=== PATIENT | female | born 1945 | race Caucasian/White ===

== ENCOUNTER → 2018-04-30 08:29 | Outpatient (CLI) | payer MEDICARE, OTHER, SELFPAY ==
[2018-04-30 10:29] LABS: Free T4, Direct Thyroxine 1.28 ng/dL (0.78-2.19)
[2018-04-30 10:43] LABS: Thyroid Stimulating Hormone 2.67 uIU/mL (0.47-4.68)
== END ==
PROVIDERS: PCP Internal Medicine; Visit Provider Internal Medicine
DX: E03.9 Hypothyroidism, unspecified (principal)
CPT/HCPCS: 36415; 84439; 84443

== ENCOUNTER → 2018-09-17 09:08 | Outpatient (CLI) | payer MEDICARE, OTHER, SELFPAY ==
[2018-09-17 10:12] LABS: Alanine Aminotransferase 36 IU/L (9-52); Aspartate Aminotransferase 33 IU/L (14-36); Cholesterol 177 mg/dL (140-199); HDL Cholesterol 83 mg/dL (40-60); LDL Cholesterol Calculated 80 mg/dL (<100); Triglycerides 71 mg/dL (35-150)
[2018-09-17 10:51] LABS: Free T3, Triiodothyronine Free 3.66 pg/mL (2.77-5.27)
[2018-09-17 11:05] LABS: Thyroid Stimulating Hormone 2.27 uIU/mL (0.47-4.68)
== END ==
PROVIDERS: PCP Internal Medicine; Visit Provider Internal Medicine
DX: E03.9 Hypothyroidism, unspecified (principal); E78.00 Pure hypercholesterolemia, unspecified
CPT/HCPCS: 36415; 80061; 84439; 84443; 84450; 84460; 84481

== ENCOUNTER → 2018-11-25 08:39 | Outpatient (CLI) | payer MEDICARE, OTHER, SELFPAY ==
[2018-11-25 10:50] LABS: Free T4, Direct Thyroxine 1.12 ng/dL (0.78-2.19)
[2018-11-25 11:03] LABS: Thyroid Stimulating Hormone 4.03 uIU/mL (0.47-4.68)
[2018-11-25 11:06] LABS: Cortisol AM (Before 10AM) 8.48 ug/dL (4.46-22.7)
== END ==
PROVIDERS: PCP Internal Medicine; Visit Provider Internal Medicine Endocrinology, Diabetes & Metabolism
DX: E03.9 Hypothyroidism, unspecified (principal)
CPT/HCPCS: 36415; 82533; 84439; 84443

== ENCOUNTER → 2018-12-30 10:55 | Outpatient (CLI) | payer MEDICARE, OTHER, SELFPAY ==
--- NOTE | 2018-12-30 | DI.MG.S_ITS ---
BILATERAL DIGITAL SCREENING MAMMOGRAM 3D/2D WITH CAD: 12/30/2018 CLINICAL: Routine screening. Comparison is made to exams dated: 11/08/2017 mammogram, 10/11/2016 mammogram, and 09/14/2015 mammogram - [facility]. The tissue of both breasts is heterogeneously dense. This may lower the sensitivity of mammography. Current study was also evaluated with a Computer Aided Detection (CAD) system. There are heterogeneous calcifications in the left breast at 12 o'clock middle depth which appear more prominent and increased in number over the past few mammograms. This may in part be due to slight differences in imaging technique. No other significant masses, calcifications, or other findings are seen in either breast. IMPRESSION: INCOMPLETE: NEEDS ADDITIONAL IMAGING EVALUATION The heterogeneous calcifications in the left breast are indeterminate. Mediolateral and spot magnification views are recommended. This exam was interpreted at Station ID: [id number]. NOTE: For mammograms, a report in lay terms will be sent to the patient. Approximately 15% of breast malignancies will not be visualized mammographically. In the management of a palpable breast mass, a negative mammogram must not discourage biopsy of a clinically suspicious lesion. Electronically Signed By: David Thompson M.D. aty/:12/30/2018 12:42:31 letter sent: Additional Imaging Needed ACR BI-RADS Category 0: Incomplete 3340F
== END ==
PROVIDERS: PCP Internal Medicine; Visit Provider Internal Medicine
DX: Z12.31 Encounter for screening mammogram for malignant neoplasm of breast (principal)
CPT/HCPCS: 77063; 77067

== ENCOUNTER → 2019-01-21 12:43 | Outpatient (CLI) | payer MEDICARE, OTHER, SELFPAY ==
--- NOTE | 2019-01-21 | DI.MG.S_ITS ---
UNILATERAL LEFT DIGITAL DIAGNOSTIC MAMMOGRAM 3D/2D WITH ADDITIONAL VIEWS: 01/21/2019 CLINICAL: Additional evaluation requested from prior study. Comparison is made to exams dated: 12/30/2018 mammogram, 11/08/2017 mammogram, and 10/11/2016 mammogram - [facility]. The tissue of left breast is heterogeneously dense. This may lower the sensitivity of mammography. There are a grouped fine punctate calcifications in the left breast at 12 o'clock middle depth. These are not significantly changed compared to the prior studies given differences in technique. No other significant masses or calcifications are seen in the breast. IMPRESSION: PROBABLY BENIGN The grouped fine punctate calcifications in the left breast are probably benign. A follow-up in 6 months is recommended. A follow-up mammogram in 6 months is recommended to demonstrate stability. This exam was interpreted at Station ID: [id number]. NOTE: For mammograms, a report in lay terms will be sent to the patient. Approximately 15% of breast malignancies will not be visualized mammographically. In the management of a palpable breast mass, a negative mammogram must not discourage biopsy of a clinically suspicious lesion. Electronically Signed By: Michi zavala/:01/21/2019 13:27:20 letter sent: Followup Recommended ACR BI-RADS Category 3: Probably benign 3343F
== END ==
PROVIDERS: PCP Internal Medicine; Visit Provider Internal Medicine
DX: R92.1 Mammographic calcification found on diagnostic imaging of breast (principal)
CPT/HCPCS: 77065; G0279

== ENCOUNTER → 2019-03-31 11:11 | Outpatient (CLI) | payer MEDICARE, OTHER, SELFPAY ==
[2019-03-31 13:38] LABS: TSH w/ Reflex to FT4 5.34 uIU/mL (0.47-4.68)
[2019-03-31 14:15] LABS: Free T4, Direct Thyroxine 1.13 ng/dL (0.78-2.19)
== END ==
PROVIDERS: PCP Internal Medicine; Visit Provider Internal Medicine
DX: E03.9 Hypothyroidism, unspecified (principal)
CPT/HCPCS: 36415; 84439; 84443

== ENCOUNTER → 2019-06-30 10:53 | Outpatient (CLI) | payer MEDICARE, OTHER, SELFPAY ==
[2019-06-30 12:40] LABS: Free T4, Direct Thyroxine 1.05 ng/dL (0.78-2.19)
[2019-06-30 12:54] LABS: Thyroid Stimulating Hormone 3.57 uIU/mL (0.47-4.68)
== END ==
PROVIDERS: PCP Internal Medicine; Visit Provider Internal Medicine
DX: E03.9 Hypothyroidism, unspecified (principal)
CPT/HCPCS: 36415; 84439; 84443

== ENCOUNTER → 2019-09-03 13:03 | Outpatient (CLI) | payer MEDICARE, OTHER, SELFPAY ==
--- NOTE | 2019-09-03 | DI.MG.S_ITS ---
UNILATERAL LEFT DIGITAL DIAGNOSTIC MAMMOGRAM 3D/2D: 09/03/2019 CLINICAL: Patient returns for a 6 month follow up of the left breast. Comparison is made to exams dated: 01/21/2019 mammogram, 12/30/2018 mammogram, and 11/08/2017 mammogram - [facility]. The tissue of left breast is heterogeneously dense. This may lower the sensitivity of mammography. There are grouped fine punctate calcifications in the left breast at 12 o'clock middle depth. These are not significantly changed. No other significant masses or calcifications are seen in the breast. IMPRESSION: PROBABLY BENIGN The grouped fine punctate calcifications in the left breast remain stable and are probably benign. A follow-up bilateral mammogram in 6 months is recommended to demonstrate stability. This exam was interpreted at Station ID: [id number]. NOTE: For mammograms, a report in lay terms will be sent to the patient. Approximately 15% of breast malignancies will not be visualized mammographically. In the management of a palpable breast mass, a negative mammogram must not discourage biopsy of a clinically suspicious lesion. Electronically Signed By: David Thompson M.D. at/:09/03/2019 13:47:26 letter sent: Followup Recommended ACR BI-RADS Category 3: Probably benign 3343F
== END ==
PROVIDERS: PCP Internal Medicine; Visit Provider Internal Medicine
DX: R92.8 Other abnormal and inconclusive findings on diagnostic imaging of breast (principal); R92.1 Mammographic calcification found on diagnostic imaging of breast
CPT/HCPCS: 77065; G0279

== ENCOUNTER → 2020-05-14 09:13 | Outpatient (CLI) | payer MEDICARE, OTHER, SELFPAY ==
--- NOTE | 2020-05-14 | DI.US.S_ITS ---
ULTRASOUND OF RIGHT BREAST: 05/14/2020 CLINICAL: Right breast pain. Comparison is made to exams dated: 05/14/2020 mammogram, 12/30/2018 mammogram, 11/08/2017 mammogram, 10/11/2016 mammogram, and 09/14/2015 mammogram - [facility]. Color flow ultrasound of the right breast was performed on the areas of interest. Phillips scale images of the real-time examination were reviewed. There is a 1 cm x 0.7 cm x 0.8 cm irregular mass in the right breast at 9 o'clock middle depth. This irregular mass is hypoechoic. This correlates as palpated and with mammography findings. IMPRESSION: HIGHLY SUGGESTIVE OF MALIGNANCY The 1 cm x 0.7 cm x 0.8 cm irregular mass in the right breast is highly suggestive of malignancy. An ultrasound guided biopsy is recommended. Please note, a stereotactic biopsy of the linear calcifications in the left breast is also recommended. This exam was interpreted at Station ID: [id number]. SUMMARY: This was discussed with the patient by the radiologist Dr. Monsivais at the time of the exam. Electronically Signed By: Kay hancock/:05/18/2020 13:21:42 letter sent: Biopsy Required Ultrasound BI-RADS: 5 Highly suggestive of malignancy
--- NOTE | 2020-05-14 | DI.MG.S_ITS ---
BILATERAL DIGITAL DIAGNOSTIC MAMMOGRAM 3D/2D SHORT-TERM FOLLOW-UP: 05/14/2020 CLINICAL: Patient returns for a 12 month follow up of the left breast, due for bilateral imaging. Right breast pain. Comparison is made to exams dated: 09/03/2019 mammogram, 01/21/2019 mammogram, 12/30/2018 mammogram, and 11/08/2017 mammogram - [facility]. The tissue of both breasts is heterogeneously dense. This may lower the sensitivity of mammography. There is a mass with a spiculated margin in the right breast at 11 o'clock posterior depth. This correlates as palpated. There are linear calcifications in the left breast at 12 o'clock middle depth. No other significant masses or calcifications are seen in either breast. IMPRESSION: INCOMPLETE: NEEDS ADDITIONAL IMAGING EVALUATION The mass in the right breast at 11 o'clock posterior depth is indeterminate. A targeted ultrasound of the right breast is recommended and will be performed immediately following this exam. The linear calcifications in the left breast at 12 o'clock middle depth are at a low suspicion for malignancy. A stereotactic biopsy is recommended. This exam was interpreted at Station ID: [id number]. NOTE: For mammograms, a report in lay terms will be sent to the patient. Approximately 15% of breast malignancies will not be visualized mammographically. In the management of a palpable breast mass, a negative mammogram must not discourage biopsy of a clinically suspicious lesion. Electronically Signed By: Kay Sultana M.D. lk/:05/18/2020 13:21:20 ACR BI-RADS Category 0: Incomplete 3340F
== END ==
PROVIDERS: PCP Internal Medicine; Referring Provider Internal Medicine; Visit Provider Internal Medicine
DX: R92.8 Other abnormal and inconclusive findings on diagnostic imaging of breast (principal); R92.1 Mammographic calcification found on diagnostic imaging of breast; N63.15 Unspecified lump in the right breast, overlapping quadrants; N64.4 Mastodynia
CPT/HCPCS: 76642; 77066; G0279

== ENCOUNTER → 2020-06-08 09:47 | Outpatient (CLI) | payer MEDICARE, OTHER, SELFPAY ==
[2020-06-08 12:13] LABS: Alanine Aminotransferase 25 IU/L (<35); Albumin 4.4 g/dL (3.5-5.0); Albumin Globulin Ratio 1.5 (1.0-2.8); Alkaline Phosphatase 95 U/L (38-126); Aspartate Aminotransferase 32 IU/L (14-36); BUN Creatinine Ratio 13.3 (6-22); Bilirubin Total 0.5 mg/dL (0.2-1.3); Blood Urea Nitrogen 12 mg/dL (7-17); Calcium 9.7 mg/dL (8.4-10.2); Carbon Dioxide 30 mmol/L (22-32); Chloride 105 mmol/L (98-107); Cholesterol 179 mg/dL (140-199); Estimated Glomerular Filt Rate > 60.0 mL/min (>60); Glucose 104 mg/dL (80-110); HDL Cholesterol 83 mg/dL (40-60); HEMOLYSIS < 15 (0-50); LDL Cholesterol Calculated 81 mg/dL (<100); Potassium 4.6 mmol/L (3.4-5.1); Sodium 142 mmol/L (137-145); Total Protein 7.4 g/dL (6.3-8.2); Triglycerides 75 mg/dL (35-150)
--- NOTE | 2020-06-08 14:54 | ONC.MSW ---
Description: New Referral Navigation T/C Reason for Referral: New Breast Cancer Dx Activity: Spoke with pt's spouse re: referral and scheduling. Pt was recently dx'd with breast cancer, her PCP is Dr. Jessica Betancourt, her surgeon with be Dr. Bustamante in [place]. Discussed briefly the role of navigation, and the ongoing availability of assistance, support, and resource referrals as needed. No immediate needs identified at this time. Confirmed her initial consult time for 06/14 at 10:00am, 9:40am check-in time. Will plan to meet with them in person at that time.
== END ==
PROVIDERS: PCP Internal Medicine; Referring Provider Internal Medicine; Visit Provider Internal Medicine
DX: M85.80 Other specified disorders of bone density and structure, unspecified site (principal); E78.00 Pure hypercholesterolemia, unspecified
CPT/HCPCS: 36415; 80053; 80061

== ENCOUNTER → 2020-06-10 14:12 | Outpatient (CLI) | payer MEDICARE, OTHER, SELFPAY ==
--- NOTE | 2020-06-10 | DI.CT.S_ITS ---
PROCEDURE: CT CHEST ABD PEL W CON INDICATIONS: Malignant neoplasm of upper-outer quadrant of righ TECHNIQUE: After the administration of oral and intravenous contrast, 5 mm thick sections acquired from the lung apices to the symphysis. 5 mm coronal and sagittal reformats were performed, with additional 7 mm coronal MIP reformats through the lungs. For radiation dose reduction, the following was used: automated exposure control, adjustment of mA and/or kV according to patient size. COMPARISON: None. FINDINGS: Image quality: Excellent. CHEST: Lungs and pleura: No acute airspace opacities. No pleural effusions or pneumothorax. Central and peripheral airways appear patent and normal in caliber. Mediastinum: Heart size is normal. No pericardial effusion. No mediastinal or hilar adenopathy by size criteria. Thoracic aorta and central pulmonary arteries are normal in size. Esophagus is normal in caliber. No hiatal hernia. Chest wall: Few scattered right axillary lymph nodes however no definite pathologic large by size criteria. Nonetheless recommend continued surveillance on subsequent studies. Thyroid gland negative . Surgical clips in the the right breast ABDOMEN: Solid organs: Liver is normal in size and enhancement. Gallbladder negative . Biliary system is non dilated. Pancreas enhances normally. Spleen is normal in size and enhancement. No adrenal nodules. There is mild left hydroureteronephrosis although the exact etiology is not apparent. Right kidney unremarkable. Peritoneum and bowel: Bowel loops demonstrate normal wall thickness and caliber. No free fluid or air. Nodes and vessels: No retroperitoneal or mesenteric adenopathy by size criteria. Aorta and inferior vena cava are normal in size. Miscellaneous: No ventral hernias. PELVIS: Genitourinary: Bladder wall thickness is normal. Miscellaneous: No inguinal hernias or adenopathy. Bones: No suspicious bony lesions. No vertebral body compression fractures. IMPRESSION: Overall, no specific evidence for metastatic disease. Mildly prominent right axillary lymph nodes without definite pathologic enlargement. Recommend continued surveillance on subsequent studies. Mild left hydroureteronephrosis although the exact etiology is not identified. Recommend clinical correlation. Dictated by: Javed Benito M.D. on 06/10/2020 at 17:00 Approved by: Javed Benito M.D. on 06/10/2020 at 17:26
== END ==
PROVIDERS: PCP Internal Medicine; Referring Provider Internal Medicine; Visit Provider Internal Medicine
DX: C50.411 Malignant neoplasm of upper-outer quadrant of right female breast (principal); R59.0 Localized enlarged lymph nodes; N13.30 Unspecified hydronephrosis; Z17.0 Estrogen receptor positive status [ER+]
CPT/HCPCS: 71260; 74177; Q9967

== ENCOUNTER → 2020-06-16 12:56 | Outpatient (CLI) | payer MEDICARE, OTHER, SELFPAY ==
--- NOTE | 2020-06-16 13:31 | DI.MRI.S_ITS ---
Patient Name: PREMA BROWN date: 1945 Sex: F Attending Physician: Serafin Indications: Date: 06/16/2020 13:07 At the request of: DAVID STAHL Procedure: MR breast BI wo/w con BREAST MRI OF BOTH BREASTS- WITH CAD: 06/16/2020 CLINICAL: Breast cancer. Comparison is made to exams dated: 05/27/2020 ultrasound biopsy, 05/27/2020 mammogram, 05/27/2020 stereotactic biopsy - [facility], and 05/14/[address] mammogram - [facility]. Interpretation of this MRI was correlated with available mammograms and ultrasounds. Informed consent was obtained from the patient. 20 cc of ProHance (Gadoteridol) nonionic contrast was injected. Axial T1, T2, sagittal T1, and pre and post contrast T1 images were obtained with a dedicated breast coil. Post processing was performed including computer aided calculations of any tumor volumes and dimensions. There is mild background parenchymal enhancement. Right breast: Within the lateral right breast at approximately the 9 o'clock position at middle 3rd depth, there is a spiculated enhancing mass measuring up to approximately 1.7 x 1.2 x 1.4 cm. Kinetic enhancement curves demonstrate moderate to rapid initial enhancement with washout. There is an internal focus of magnetic susceptibility artifact corresponding to the biopsy clip. Findings consistent with patient's biopsy-proven malignancy. Elsewhere, no discrete mass or suspicious enhancement demonstrated within the right breast to suggest multifocal or multicentric disease. Left breast: There is mild indistinct enhancement within the superior left breast at approximately the 12 o'clock position, middle 3rd depth corresponding to the site of prior biopsy. There is an associated focus of magnetic susceptibility artifact corresponding to the biopsy clip. Elsewhere, no discrete mass or suspicious enhancement within the left breast to suggest malignancy. Miscellaneous: There is an enlarged left axillary lymph node measuring up to 1.1 cm in short axis deep to the left axillary vein. No left axillary or internal mammary lymphadenopathy by size criteria. IMPRESSION: KNOWN BIOPSY PROVEN MALIGNANCY Continued Report - Page 2 of 2 Patient Name: PREMA BROWN date: 1945 Sex: F Attending Physician: Serafin Indications: Date: 06/16/2020 13:07 At the request of: DAVID STAHL Procedure: MR breast BI wo/w con 1. Right breast spiculated mass at the 9 o'clock position measuring up to 1.7 cm corresponding to the patient's biopsy-proven malignancy. 2. Enlarged right axillary lymph node deep to the right axillary vein suspicious for metastatic disease. Recommend a dedicated second-look ultrasound. 3. Post biopsy changes demonstrated in the left breast without evidence of malignancy. This exam was interpreted at Station ID: [id number]. Electronically Signed By: Michi Vásquez M.D. ddp/:06/16/2020 17:08:14 ACR BI-RADS Category 6: Known biopsy proven malignancy 3346F
== END ==
PROVIDERS: PCP Internal Medicine; Referring Provider Internal Medicine; Visit Provider Internal Medicine
DX: C50.411 Malignant neoplasm of upper-outer quadrant of right female breast (principal)
CPT/HCPCS: 77049; A9579

== ENCOUNTER → 2020-06-21 10:37 | Outpatient (CLI) | payer MEDICARE, OTHER, SELFPAY ==
--- NOTE | 2020-06-21 11:17 | DI.US.S_ITS ---
Patient Name: PREMA BROWN date: 1945 Sex: F Attending Physician: Serafin Indications: Date: 06/21/2020 11:28 At the request of: DAVID STAHL Procedure: US axillary only ULTRASOUND OF RIGHT AXILLA: 06/21/2020 CLINICAL: Follow-up of an abnormal MRI. Comparison is made to exams dated: 06/16/2020 breast MRI - [facility], 05/27/2020 mammogram, and 05/27/2020 ultrasound biopsy - [facility]. Ultrasound of the right axilla was performed. There is a vague 2.9 cm x 1.2 cm x 2 cm oval enlarged lymph node with uniform cortical thickening up to 4 mm with an indistinct margin deep in the axillary fat within the right axillary tail. This oval enlarged lymph node is heterogeneously echogenic with fatty hilum. IMPRESSION: SUSPICIOUS OF MALIGNANCY There is a 2.9 cm indistinct enlarged lymph node which may correspond to the node indicated on the MRI. In the setting of biopsy-proven right breast cancer, this node is suspicious of malignancy. Given its indistinct margins and deep position, this is not ammenable to ultrasound guided biopsy. A surgical oncologic consultation is recommended. Findings and recommendations were conveyed to the patient at time of exam. This exam was interpreted at Station ID: [id number]. Electronically Signed By: Jo pitts/:06/21/2020 15:05:47 Ultrasound BI-RADS: 4 Suspicious for malignancy
== END ==
PROVIDERS: PCP Internal Medicine; Referring Provider Internal Medicine; Visit Provider Internal Medicine
DX: R92.8 Other abnormal and inconclusive findings on diagnostic imaging of breast (principal); C50.911 Malignant neoplasm of unspecified site of right female breast; R59.0 Localized enlarged lymph nodes
CPT/HCPCS: 76882

== ENCOUNTER → 2020-08-16 13:48 | Outpatient (CLI) | payer MEDICARE, OTHER, SELFPAY ==
--- NOTE | 2020-08-16 | DI.US.S_ITS ---
PROCEDURE: US RENAL COMPLETE INDICATIONS: HYDRONEPHROSIS TECHNIQUE: Real-time scanning was performed of the kidneys and bladder, with image documentation. COMPARISON: None. FINDINGS: Kidneys: Kidneys are normal in size. Right kidney measures 11.2 cm long; left kidney measures 11.4 cm long. Right renal cortical thickness is 1.1 cm; left renal cortical thickness is 1.4 cm. Renal cortical echotexture is normal. Mild to moderate left-sided hydronephrosis is seen. No nephrolithiasis. No suspicious solid mass lesions. Bladder: Pre-void bladder volume is 325 mL. Post-void residual is 16 mL. Pre-void images demonstrate no intraluminal masses or stones. On pre-void images, both ureteral jets are noted with color Doppler interrogation. (Of note, ureteral jets may not be detectable in up to 25% of cases due to insufficient differences in specific gravity between ureteral and bladder urine). Miscellaneous: No free pelvic fluid. IMPRESSION: [id number] left-sided hydronephrosis is seen. Mild postvoid residual, 16 cc. Dictated by: Joel Mckenna M.D. on 08/16/2020 at 14:16 Approved by: Joel Mckenna M.D. on 08/16/2020 at 14:18
[2020-08-16 16:00] LABS: TSH w/ Reflex to FT4 6.76 uIU/mL (0.47-4.68)
[2020-08-16 16:25] LABS: Free T4, Direct Thyroxine 1.05 ng/dL (0.78-2.19)
== END ==
PROVIDERS: PCP Internal Medicine; Referring Provider Internal Medicine; Visit Provider Internal Medicine
DX: N13.30 Unspecified hydronephrosis (principal); E03.9 Hypothyroidism, unspecified
CPT/HCPCS: 36415; 76770; 84439; 84443

== ENCOUNTER → 2020-12-21 12:09 | Outpatient (CLI) | payer MEDICARE, OTHER, SELFPAY ==
--- NOTE | 2020-12-21 12:11 | DI.NM.S_ITS ---
PROCEDURE: NM RENAL FUNCTION W LASIX RADIOPHARMACEUTICAL: 10.2 mCi Tc-99m MAG3 IV and 40 mg furosemide IV. INDICATIONS: hydronephrosis TECHNIQUE: The patient was hydrated orally before the examination was begun. After intravenous administration of Tc-99m MAG3, posterior abdominal radionuclide angiogram and sequential (1 minute each frame) renal images were obtained. A time-activity curve for each kidney was generated and analyzed. To evaluate for obstruction, the patient was given 40 mg furosemide via slow intravenous injection after the start of the examination. Sequential images were obtained for up to an additional 20 minutes. COMPARISON: [facility], CT, CT CHEST ABD PEL W CON, 06/10/2020, 16:20. [facility], US, US RENAL COMPLETE, 08/16/2020, 14:36. FINDINGS: Perfusion: There is normal vascular flow to both kidneys. Morphology: Both kidneys are normal in size and shape. The left renal collecting is moderately dilated. The ureters and bladder fill with tracer, and appear normal. Function: Both kidneys demonstrate normal cortical tracer uptake, with [id number] activity ranging from 3 to 5 minutes. The right kidney contributes 43.3% of total renal function. The left kidney contributes 56.7% of total renal function. Lasix stimulation: After diuretic administration, there is prompt clearance of tracer activity from the renal collecting systems in both kidneys. The half-time of emptying of tracer activity from the right pelvicaliceal system is 2.8 minutes. The half-time of emptying from the left pelvicaliceal system is 2 point minutes. Normal emptying half-times are less than 10 minutes; borderline ranges are from 10 to 20 minutes. IMPRESSION: 1. Dilated left renal pelvis but no urinary obstruction. 2. Normal right renal function. 3. Right kidney contributes 43.3% of total renal function. Left kidney contributes 56.7% of total renal function. Dictated by: Kevin Vanegas M.D. on 12/21/2020 at 16:26 Approved by: Kevin Vanegas M.D. on 12/21/2020 at 16:31
== END ==
PROVIDERS: PCP Internal Medicine; Referring Provider Specialist; Visit Provider Specialist
DX: N13.30 Unspecified hydronephrosis (principal)
CPT/HCPCS: 78708; A9562

== ENCOUNTER → 2021-01-04 10:10 | Outpatient (CLI) | payer MEDICARE, OTHER, SELFPAY | PROVIDERS: PCP Internal Medicine; Referring Provider Internal Medicine Hematology & Oncology; Visit Provider Internal Medicine Hematology & Oncology | DX: M85.851 Other specified disorders of bone density and structure, right thigh (principal); Z78.0 Asymptomatic menopausal state; Z85.3 Personal history of malignant neoplasm of breast; Z90.722 Acquired absence of ovaries, bilateral | CPT/HCPCS: 77080 ==

== ENCOUNTER → 2021-05-14 08:29 | Outpatient (CLI) | payer MEDICARE, OTHER, SELFPAY ==
[2021-05-14 10:15] LABS: COVID19 -Nasal RAPID Negative (Negative)
== END ==
PROVIDERS: PCP Internal Medicine; Visit Provider Physician Assistant
DX: R05 Cough (principal); J02.9 Acute pharyngitis, unspecified; Z20.822 Contact with and (suspected) exposure to COVID-19
CPT/HCPCS: 87070; 87635

== ENCOUNTER → 2021-06-29 17:37 | Outpatient (CLI) | payer MEDICARE, OTHER, SELFPAY ==
--- NOTE | 2021-06-29 17:37 | DI.MG.S_ITS ---
BILATERAL DIGITAL SCREENING MAMMOGRAM 3D/2D WITH CAD: 06/29/2021 CLINICAL: Routine screening. Personal history of right breast cancer. Comparison is made to exams dated: 05/14/2020 mammogram, 06/21/2020 ultrasound, 06/16/2020 breast MRI - [facility], 05/27/2020 mammogram - [facility], 12/30/2018 mammogram, and 11/08/2017 mammogram - [facility]. The tissue of both breasts is heterogeneously dense. This may lower the sensitivity of mammography. Current study was also evaluated with a Computer Aided Detection (CAD) system. There is an irregular equal density focal asymmetry with an indistinct margin in the right breast at 11 o'clock middle depth. There is architectural distortion associated with the focal asymmetry. There is an irregular equal density asymmetry with an indistinct margin in the left breast at 12 o'clock posterior depth. There is architectural distortion associated with the asymmetry. No other significant masses or calcifications are seen in either breast. IMPRESSION: INCOMPLETE: NEEDS ADDITIONAL IMAGING EVALUATION The irregular equal density focal asymmetry in the right breast at 11 o'clock middle depth is indeterminate. Mediolateral and spot compression views as well as additional views with possible ultrasound are recommended. The irregular equal density asymmetry in the left breast at 12 o'clock posterior depth is indeterminate. Mediolateral and spot compression views as well as additional views with possible ultrasound are recommended. This exam was interpreted at Station ID: [id number]. NOTE: For mammograms, a report in lay terms will be sent to the patient. Approximately 15% of breast malignancies will not be visualized mammographically. In the management of a palpable breast mass, a negative mammogram must not discourage biopsy of a clinically suspicious lesion. Electronically Signed By: Michi zavala/yoon:06/30/2021 08:42:50 letter sent: Additional Imaging Needed ACR BI-RADS Category 0: Incomplete [id number]
== END ==
PROVIDERS: PCP Internal Medicine; Referring Provider Internal Medicine; Visit Provider Internal Medicine
DX: Z12.31 Encounter for screening mammogram for malignant neoplasm of breast (principal); C50.911 Malignant neoplasm of unspecified site of right female breast; Z17.0 Estrogen receptor positive status [ER+]
CPT/HCPCS: 77063; 77067

== ENCOUNTER → 2021-07-15 09:20 | Outpatient (CLI) | payer MEDICARE, OTHER, SELFPAY ==
--- NOTE | 2021-07-15 | DI.US.S_ITS ---
LIMITED ULTRASOUND OF RIGHT BREAST: 07/15/2021 CLINICAL: Patient returns today to evaluate a focal asymmetry in the right breast. Comparison is made to exams dated: 07/15/2021 mammogram, 06/29/2021 mammogram, 06/21/2020 ultrasound, 06/16/2020 breast MRI - [facility], 05/27/2020 mammogram, and 05/27/2020 ultrasound biopsy - [facility]. Color flow and real-time ultrasound of the right breast 8-11 o'clock region were performed. Phillips scale images of the real-time examination were reviewed. There is a benign 0.8 cm x 1 cm x 0.4 cm oval fluid collection in the right breast at 9 o'clock posterior depth 9 cm from the nipple. This oval fluid collection displays an abrupt boundary. This correlates with mammography findings. There are associated biopsy clips. Color flow imaging demonstrates that there is no vascularity present. This is more posterior than the mammography finding. In the area of mammography abnormality, no sonographic abnormalities were found. IMPRESSION: PROBABLY BENIGN The 1 cm oval fluid collection in the right breast is consistent with the lumpectomy cavity or a seroma and is benign. There is no abnormality seen in the right breast to correspond with the architectural distortion and mammography finding at 8 o'clock. A follow-up right mammogram and an ultrasound in 6 months is recommended to demonstrate stability. Findings and recommendations were conveyed to the patient at time of exam. This exam was interpreted at Station ID: [id number]. Electronically Signed By: Jo pitts/:07/15/2021 11:58:20 letter sent: Followup Recommended Ultrasound BI-RADS: 3 Probably benign
--- NOTE | 2021-07-15 09:21 | DI.MG.S_ITS ---
BILATERAL DIGITAL DIAGNOSTIC MAMMOGRAM 3D/2D WITH ADDITIONAL VIEWS: 07/15/2021 CLINICAL: Additional evaluation requested from prior study. Comparison is made to exams dated: 06/29/2021 mammogram - [facility], 05/27/2020 mammogram - [facility], and 05/14/2020 [facility]. The tissue of both breasts is heterogeneously dense. This may lower the sensitivity of mammography. There is an irregular asymmetry in the right breast at 8 o'clock middle depth. There is possible architectural distortion associated with the asymmetry, however, this is not confirmed with additional views. This is less prominent with focal spot compression. There is architectural distortion with fine calcifications in the left breast at 12 o'clock posterior depth. There is a biopsy clip associated with the architectural distortion. This is seen in additional views. A benign stereotactic biopsy in this location was performed for the calcifications since the prior screening exam. No other significant masses or calcifications are seen in either breast. IMPRESSION: INCOMPLETE: NEEDS ADDITIONAL IMAGING EVALUATION The irregular asymmetry in the right breast at 8 o'clock middle depth is indeterminate. An ultrasound is recommended. This was performed immediately following this exam. The architectural distortion in the left breast at 12 o'clock posterior depth is consistent with recent biopsy changes which showed fibroadenomatoid change and is benign. This exam was interpreted at Station ID: [id number]. NOTE: For mammograms, a report in lay terms will be sent to the patient. Approximately 15% of breast malignancies will not be visualized mammographically. In the management of a palpable breast mass, a negative mammogram must not discourage biopsy of a clinically suspicious lesion. Electronically Signed By: Jo pitts/:07/15/2021 10:19:09 ACR BI-RADS Category 0: Incomplete [id number]
== END ==
PROVIDERS: PCP Internal Medicine; Referring Provider Internal Medicine Hematology & Oncology; Visit Provider Internal Medicine Hematology & Oncology
DX: N63.0 Unspecified lump in unspecified breast (principal); C50.911 Malignant neoplasm of unspecified site of right female breast; R92.8 Other abnormal and inconclusive findings on diagnostic imaging of breast; Z17.0 Estrogen receptor positive status [ER+]
CPT/HCPCS: 76642; 77066; G0279

== ENCOUNTER 2021-07-21 13:45 | Outpatient (RCR) | payer MEDICARE, OTHER, SELFPAY ==
--- NOTE | 2021-03-15 16:00 | PT.OIE ---
Current Diagnoses Malignant neoplasm of unspecified site of right female breast (03/15/21) Lymphedema, not elsewhere classified (03/15/21) Estrogen receptor positive status [ER+] (03/15/21) Past Medical History (Last Reviewed 12/28/20 @ 08:07 by Haley Chavez MD) Arthritis Hydronephrosis, left Hyperlipidemia Hypothyroidism Osteoarthritis Past Surgical History (Last Reviewed 12/28/20 @ 08:07 by Haley Chavez MD) History of tonsillectomy Status post cholecystectomy Status post hysterectomy Visit Care Team Role Provider Type Jessica Betancourt MD Primary Care Provider Physician Specialty: Internal Medicine Address: [address] [place] [address], [id number] Email: [email or web address] Abigail Santillan MD Attending Provider Physician Referring Provider Specialty: Oncology Address: [address] [place] [address], [id number] Email: Physical Therapy Initial Evaluation PT-OP-A Visit Information Start: 03/15/21 12:52 Freq: Status: Active Protocol: Document 03/15/21 16:00 AW (Rec: 03/15/21 17:38 AW [email or web address]) Out-Patient Physical Therapy Visit Information Visit Information Visit Type Initial Evaluation Visit Start Time 14:30 Visit Stop Time 16:00 Total Visit Minutes 90 Visit Number 1 Number of CLOTH COLORS EXAMINER Visits 0 Evaluation Information Evaluation Date 03/15/21 PT-OP-B Current Condition Start: 03/15/21 12:52 Freq: Status: Active Protocol: Document 03/15/21 16:00 AW (Rec: 03/15/21 13:24 AW [email or web address]) Current Condition History of Current Condition Onset Date late 2019 Current Complaints RUE and trunk swelling/ lymphedema; decreased RUE ROM History of Current Condition Diagnosed with 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 She consulted with [facility] but was treated more locally. On July 22, 2020, pt underwent R breast lumpectomy and sentinel lymph node biopsy ( six nodes removed, 2 positive for metastasis) at [facility] in [place]. She completed a course of advujant radiation at [facility] on 11/19/20 . She is currently maintained on letrozole to reduce overall estrogen load. Pt reports lymphedema onset late 2019 and was seen by a PT at [facility] earlier this year. Treatment consisted primarily of MLD with good results/ reduction and improved range of motion. She now reports it is difficult for her to sleep on either side. When she sleeps on her left, she feels pulling in the right breast, axilla, and posterior trunk. Sleeping on her right side is too painful. She still has swelling and reports it is better in the morning, worse as the day wears on. She reports less swelling if not wearing a bra but it still gets worse throughout the day. The area becomes more dense and changes color as swelling increases. Prior Treatments and Tests Cancer treatment as noted above and lymphedema PT earlier this year. Treatment Goals Patient/Caregiver Goals Pt would like to improve her ability to do housework, improve her overall energy level, and be able to participate in some yoga. Prior Functional Status Baseline Function- ADL's Independent Baseline Function- Mobility Independent Baseline Function- Gait No AD, good balance Baseline Function- Recreation/Hobbies Able to participate in yoga, walk two times around the [facility], and complete housekeeping tasks such as vacuuming and laundry without pain. Current Functional Impairments (Reported) Functional Limitations- Recreation/ Function-limiting ROM and Hobbies strength deficits limit her ability to do yoga or household tasks without pain. Pt unable to walk as far as she would like due to decreased stamina. PT-OP-C Subjective Start: 03/15/21 12:52 Freq: Status: Active Protocol: Document 03/15/21 16:00 AW (Rec: 03/15/21 17:38 AW [email or web address]) Patient Questionnaires Lymphedema Life Impact Score Lymphedema Score 26 Lymphedema Impairment 1 to 19% Impaired (Score 19-32 ) OP-PT Pain Assessment Pain Assessment Grid Paper Pain Assessment Grid Completed Yes: scanned to EMR PT-OP-F Manual Assessment Start: 03/15/21 12:52 Freq: Status: Active Protocol: Document 03/15/21 16:00 AW (Rec: 03/15/21 17:45 AW [email or web address]) Manual Assessments Soft Tissue Assessment Soft Tissue Mobility Assessment No fibrotic tissue appreciated in RUE. There is density along the surgical incision and swelling noted in axilla, anteriorly on the chest, and posteriorly toward the scapula . PT-OP-K Range of Motion Start: 03/15/21 12:52 Freq: Status: Active Protocol: Document 03/15/21 16:00 AW (Rec: 03/15/21 17:45 AW [email or web address]) Cervical Spine Range of Motion Cervical Spine Active Comments All cervical ROM WNL including 60 degrees of rotation bilaterally. No unilateral deficit noted. Shoulder Goniometric Range of Motion Shoulder Right Active Testing Position Sitting Flexion 140 Extension 20 Abduction 140 Comments All right shoulder ROM restricted by swelling, pain, surgical scar tissue, quality of irradiated tissue. Distal ROM WNL. Left Active Testing Position Sitting Flexion 160 Extension 35 Abduction 170 Comments Rotation WNL Shoulder ROM Limitations Shoulder ROM Limitations Soft Tissue Tightness,Pain PT-OP-M Strength Start: 03/15/21 12:52 Freq: Status: Active Protocol: Document 03/15/21 16:00 AW (Rec: 03/15/21 17:52 AW [email or web address]) Shoulder Strength Shoulder Manual Muscle Testing Right Flexion 3+ Fair+ Extension 4- Good- Abduction (C5) 3+ Fair+ External Rotation 4- Good- Internal Rotation 4 Good Comments MMT produces pain in shoulder, proximal trunk. Left Flexion 4+ Good+ Extension 4+ Good+ Abduction (C5) 4+ Good+ External Rotation 4+ Good+ Internal Rotation 4+ Good+ Elbow/Forearm Strength Elbow and Forearm Manual Muscle Testing bilateral Comments R grossly 4+/5 L grossly 4-/5 Hand Ophthalmology Surgical Technician/Pinch Strength Hand Dominance Hand Dominance Right Hand Strength Right Comments Not tested with dynamometer, but right 4-/5 and left 4+/5 PT-OP-N Lymphedema Start: 03/15/21 12:52 Freq: Status: Active Protocol: Document 03/15/21 16:00 AW (Rec: 03/15/21 17:52 AW [email or web address]) Lymphedema Measurements Upper Extremity Circumference Measurements Right Affected MCP 18 cm Dorsum of Hand 18 cm Wrist 16 cm 10 cm From Wrist Crease 18.9 cm 20 cm From Wrist Crease 23.3 cm 30 cm From Wrist Crease 25.5 cm 40 cm From Wrist Crease 28.5 cm Elbow Joint 24.1 cm Axilla 33 cm Left Unaffected MCP 17.9 cm Dorsum of Hand 18.1 cm Wrist 15.7 cm 10 cm From Wrist Crease 19.2 cm 20 cm From Wrist Crease 22.9 cm 30 cm From Wrist Crease 26.2 cm 40 cm From Wrist Crease 31.9 cm Elbow Joint 24.1 cm Axilla 31 cm - chest at axilla: 90.1 chest at level of xyphoid process: 82.5 Comments Lymphedema Comments Pt measured in supine PT-OP-Q Treatments Start: 03/15/21 12:52 Freq: Status: Active Protocol: Document 03/15/21 16:00 AW (Rec: 03/15/21 17:56 AW [email or web address]) Lymphedema Treatment Manual Lymphatic Drainage Location RUE Duration 38 min Comments Focused on AAA, NORMA, and AIA to increase lymphangiomotoricity, promote drainage. Sequential Lymphedema Exercises Comments Discussed ROM exercises but did not perform. Plan to introduce at follow up appointment. Patient Education Lymphedema Pathology Educated pt on superficial lymphatic system and rationale for MLD Lymphedema Precautions Discussed skin care and precautions Sequential Lymphedema Exercises Discussed but not initiated PT-OP-T Assessment and Plan Start: 03/15/21 12:52 Freq: Status: Active Protocol: Document 03/15/21 16:00 AW (Rec: 03/16/21 10:25 AW [email or web address]) Physical Therapy Assessment Rehab Potential Rehabilitation Potential Good Evaluation Complexity Number of Personal Factors/Comorbidities 1-2 Number of Body Systems Impaired 3 Clinical Presentation at Evaluation Evolving Impairments Impairments Activity Tolerance,Edema, Functional Activities, Functional Mobility,Integument ,Pain,Posture,ROM,Sensation, Soft Tissue Mobility,Strength Goals Four Impairment impaired strength RUE Assisted Goal (LTG) Pt will improve RUE strength to 4+/5 globally to promote shoulder stability and ability to participate in yoga activities. LTG Duration 12 weeks - 06/07/21 Three Impairment impaired ROM RUE Short Term Goal (STG) Pt will be independent with HEP aimed at improving RUE ROM to support therapy services provided in clinic. STG Duration 4 weeks - 04/12/21 Assisted Goal (LTG) Pt will improve RUE flexion and abduction by 10 degrees and extension by 5 degrees to improve her ability to participate in self-care. LTG Duration 12 weeks - 06/07/21 Two Impairment no compression garment Short Term Goal (STG) Patient will be able to teach back regarding benefits and safe use of compression for edema reduction and long-term managemetn STG Duration 4 weeks - 04/12/21 Spray Gunner Goal (LTG) When stable, patient will be measured and fit for appropriate compression garments. She will be able to don and doff correctly and safely. LTG Duration 12 weeks - 06/07/21 One Impairment function-limiting swelling RUE and trunk Short Term Goal (STG) Pt will be educated in self- MLD and compression wrapping/ compression alternative. STG Duration 4 weeks - 04/12/21 Assisted Goal (LTG) Decrease proximal arm and trunk swelling to stable (no change >1 cm over the course of one week) LTG Duration 12 weeks - 06/07/21 Assessment Summary Assessment Naz is a 75 yo woman with recent history of right breast cancer treated with lumpectomy and sentinel lymph node biopsy (6 removed, 2 positive for metastasis). She underwent adjuvant radiation therapy which concluded at the end of October 2020. She was treated for lymphedema in November and December of this year with good results but was not fit with a compression garment. She has had a return of swelling primarily affecting her proximal right arm, axilla, anterior and posterior trunk. At evaluation , pt has impaired right upper extremity range of motion, strength, and proximal swelling compared with left side - all of which are limiting her ability to perform daily household tasks and to participate in recreational/self-care activities such as yoga. Pt has visible edema and skin changes in axilla and adjacent trunk. She would benefit from physical therapy to address her right UE swelling in order to improve her function and overall quality of life. When edema is reduced and stable, she will need to be fit with appropriate compression garments and/or alternatives for long-term management. Physical Therapy Plan Frequency and Duration Frequency of Treatment 20 visits Duration of Treatment 12 weeks Plan of Care Start Date 03/15/21 Plan of Care End Date 06/07/21 Therapeutic Interventions Therapeutic Interventions Home Exercise Program, Lymphedema Management,Manual Therapy,Patient/Caregiver Education,Self-Care/Home Management,Soft Tissue Mobilization,Therapeutic Activities,Therapeutic Exercises Other Therapeutic Interventions edema management Next Visit Focus/Plan Next Note Type Treatment Note Next Visit Plan Skin care, MLD, compression bandaging, and ther ex to reduce edema. Continue education on pathology and rationale for treatment.
--- NOTE | 2021-03-15 16:00 | PT.OPPOC ---
Physical, Occupational & Speech Therapy At [facility] Current Diagnoses Malignant neoplasm of unspecified site of right female breast (03/15/21) Lymphedema, not elsewhere classified (03/15/21) Estrogen receptor positive status [ER+] (03/15/21) Visit Care Team Role Provider Type Jessica Betancourt MD Primary Care Provider Physician Specialty: Internal Medicine Address: [address] [place] [address], [id number] Email: [email or web address] Abigail Santillan MD Attending Provider Physician Referring Provider Specialty: Oncology Address: [address] [place] [address], [place], [address] Email: Plan Of Care PT-OP-T Assessment and Plan Start: 03/15/21 12:52 Freq: Status: Active Protocol: Document 03/15/21 16:00 AW (Rec: 03/16/21 10:25 AW [email or web address]) Physical Therapy Assessment Rehab Potential Rehabilitation Potential Good Evaluation Complexity Number of Personal Factors/Comorbidities 1-2 Number of Body Systems Impaired 3 Clinical Presentation at Evaluation Evolving Impairments Impairments Activity Tolerance,Edema, Functional Activities, Functional Mobility,Integument ,Pain,Posture,ROM,Sensation, Soft Tissue Mobility,Strength Goals Four Impairment impaired strength RUE Public Safety Officer Goal (LTG) Pt will improve RUE strength to 4+/5 globally to promote shoulder stability and ability to participate in yoga activities. LTG Duration 12 weeks - 06/07/21 Three Impairment impaired ROM RUE Short Term Goal (STG) Pt will be independent with HEP aimed at improving RUE ROM to support therapy services provided in clinic. STG Duration 4 weeks - 04/12/21 Prison Goal (LTG) Pt will improve RUE flexion and abduction by 10 degrees and extension by 5 degrees to improve her ability to participate in self-care. LTG Duration 12 weeks - 06/07/21 Two Impairment no compression garment Short Term Goal (STG) Patient will be able to teach back regarding benefits and safe use of compression for edema reduction and long-term managemetn STG Duration 4 weeks - 04/12/21 Public Safety Officer Goal (LTG) When stable, patient will be measured and fit for appropriate compression garments. She will be able to don and doff correctly and safely. LTG Duration 12 weeks - 06/07/21 One Impairment function-limiting swelling RUE and trunk Short Term Goal (STG) Pt will be educated in self- MLD and compression wrapping/ compression alternative. STG Duration 4 weeks - 04/12/21 Public Safety Officer Goal (LTG) Decrease proximal arm and trunk swelling to stable (no change >1 cm over the course of one week) LTG Duration 12 weeks - 06/07/21 Assessment Summary Assessment Naz is a 75 yo woman with recent history of right breast cancer treated with lumpectomy and sentinel lymph node biopsy (6 removed, 2 positive for metastasis). She underwent adjuvant radiation therapy which concluded at the end of October 2020. She was treated for lymphedema in November and December of this year with good results but was not fit with a compression garment. She has had a return of swelling primarily affecting her proximal right arm, axilla, anterior and posterior trunk. At evaluation , pt has impaired right upper extremity range of motion, strength, and proximal swelling compared with left side - all of which are limiting her ability to perform daily household tasks and to participate in recreational/self-care activities such as yoga. Pt has visible edema and skin changes in axilla and adjacent trunk. She would benefit from physical therapy to address her right UE swelling in order to improve her function and overall quality of life. When edema is reduced and stable, she will need to be fit with appropriate compression garments and/or alternatives for long-term management. Physical Therapy Plan Frequency and Duration Frequency of Treatment 20 visits Duration of Treatment 12 weeks Plan of Care Start Date 03/15/21 Plan of Care End Date 06/07/21 Therapeutic Interventions Therapeutic Interventions Home Exercise Program, Lymphedema Management,Manual Therapy,Patient/Caregiver Education,Self-Care/Home Management,Soft Tissue Mobilization,Therapeutic Activities,Therapeutic Exercises Other Therapeutic Interventions edema management Next Visit Focus/Plan Next Note Type Treatment Note Next Visit Plan Skin care, MLD, compression bandaging, and ther ex to reduce edema. Continue education on pathology and rationale for treatment. Plan of Care Dates Plan of Care Start Date 03/15/21 Plan of Care End Date 06/07/21 Electronically Signed by: Chichi Juarez PT 03/16/21 [id number] Please Sign and Return: I have reviewed this Plan of Care and certify that the skilled therapy services above are required to meet the patient?s needs. Physician Signature Date Printed Name and Credentials Clinical Instructor Signature Printed Name and Credentials
--- NOTE | 2021-03-17 16:22 | PT.OTN ---
Current Diagnoses Malignant neoplasm of unspecified site of right female breast (03/17/21) Lymphedema, not elsewhere classified (03/17/21) Estrogen receptor positive status [ER+] (03/17/21) Physical Therapy Treatment Note PT-OP-A Visit Information Start: 03/15/21 12:52 Freq: Status: Active Protocol: Document 03/17/21 14:29 SAK (Rec: 03/17/21 16:21 SAK [id number]) Out-Patient Physical Therapy Visit Information Visit Information Visit Type Treatment Note Visit Start Time 14:30 Visit Stop Time 15:25 Total Visit Minutes 85 Visit Number 2 Number of TITLE CHECKER Visits 0 Evaluation Information Evaluation Date 03/15/21 PT-OP-B Current Condition Start: 03/15/21 12:52 Freq: Status: Active Protocol: Document 03/17/21 14:29 SAK (Rec: 03/17/21 16:21 SAK [id number]) Current Condition History of Current Condition Onset Date late 2019 Current Complaints RUE and trunk swelling/ lymphedema; decreased RUE ROM History of Current Condition Diagnosed with 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 She consulted with [facility] but was treated more locally. On July 22, 2020, pt underwent R breast lumpectomy and sentinel lymph node biopsy ( six nodes removed, 2 positive for metastasis) at [facility] in [place]. She completed a course of advujant radiation at [facility] on 11/19/20 . She is currently maintained on letrozole to reduce overall estrogen load. Pt reports lymphedema onset late 2019 and was seen by a PT at [facility] earlier this year. Treatment consisted primarily of MLD with good results/ reduction and improved range of motion. She now reports it is difficult for her to sleep on either side. When she sleeps on her left, she feels pulling in the right breast, axilla, and posterior trunk. Sleeping on her right side is too painful. She still has swelling and reports it is better in the morning, worse as the day wears on. She reports less swelling if not wearing a bra but it still gets worse throughout the day. The area becomes more dense and changes color as swelling increases. Prior Treatments and Tests Cancer treatment as noted above and lymphedema PT earlier this year. PT-OP-C Subjective Start: 03/15/21 12:52 Freq: Status: Active Protocol: Document 03/15/21 16:00 AW (Rec: 03/15/21 17:38 AW [email or web address]) Patient Questionnaires Lymphedema Life Impact Score Lymphedema Score 26 Lymphedema Impairment 1 to 19% Impaired (Score 19-32 ) OP-PT Pain Assessment Pain Assessment Grid Paper Pain Assessment Grid Completed Yes: scanned to EMR PT-OP-F Manual Assessment Start: 03/15/21 12:52 Freq: Status: Active Protocol: Document 03/15/21 16:00 AW (Rec: 03/15/21 17:45 AW [email or web address]) Manual Assessments Soft Tissue Assessment Soft Tissue Mobility Assessment No fibrotic tissue appreciated in RUE. There is density along the surgical incision and swelling noted in axilla, anteriorly on the chest, and posteriorly toward the scapula . PT-OP-K Range of Motion Start: 03/15/21 12:52 Freq: Status: Active Protocol: Document 03/15/21 16:00 AW (Rec: 03/15/21 17:45 AW [email or web address]) Cervical Spine Range of Motion Cervical Spine Active Comments All cervical ROM WNL including 60 degrees of rotation bilaterally. No unilateral deficit noted. Shoulder Goniometric Range of Motion Shoulder Right Active Testing Position Sitting Flexion 140 Extension 20 Abduction 140 Comments All right shoulder ROM restricted by swelling, pain, surgical scar tissue, quality of irradiated tissue. Distal ROM WNL. Left Active Testing Position Sitting Flexion 160 Extension 35 Abduction 170 Comments Rotation WNL Shoulder ROM Limitations Shoulder ROM Limitations Soft Tissue Tightness,Pain PT-OP-M Strength Start: 03/15/21 12:52 Freq: Status: Active Protocol: Document 03/15/21 16:00 AW (Rec: 03/15/21 17:52 AW [email or web address]) Shoulder Strength Shoulder Manual Muscle Testing Right Flexion 3+ Fair+ Extension 4- Good- Abduction (C5) 3+ Fair+ External Rotation 4- Good- Internal Rotation 4 Good Comments MMT produces pain in shoulder, proximal trunk. Left Flexion 4+ Good+ Extension 4+ Good+ Abduction (C5) 4+ Good+ External Rotation 4+ Good+ Internal Rotation 4+ Good+ Elbow/Forearm Strength Elbow and Forearm Manual Muscle Testing bilateral Comments R grossly 4+/5 L grossly 4-/5 Hand Oil Well Perforator Operator/Pinch Strength Hand Dominance Hand Dominance Right Hand Strength Right Comments Not tested with dynamometer, but right 4-/5 and left 4+/5 PT-OP-N Lymphedema Start: 03/15/21 12:52 Freq: Status: Active Protocol: Document 03/15/21 16:00 AW (Rec: 03/15/21 17:52 AW [email or web address]) Lymphedema Measurements Upper Extremity Circumference Measurements Right Affected MCP 18 cm Dorsum of Hand 18 cm Wrist 16 cm 10 cm From Wrist Crease 18.9 cm 20 cm From Wrist Crease 23.3 cm 30 cm From Wrist Crease 25.5 cm 40 cm From Wrist Crease 28.5 cm Elbow Joint 24.1 cm Axilla 33 cm Left Unaffected MCP 17.9 cm Dorsum of Hand 18.1 cm Wrist 15.7 cm 10 cm From Wrist Crease 19.2 cm 20 cm From Wrist Crease 22.9 cm 30 cm From Wrist Crease 26.2 cm 40 cm From Wrist Crease 31.9 cm Elbow Joint 24.1 cm Axilla 31 cm - chest at axilla: 90.1 chest at level of xyphoid process: 82.5 Comments Lymphedema Comments Pt measured in supine PT-OP-Q Treatments Start: 03/15/21 12:52 Freq: Status: Active Protocol: Document 03/17/21 14:29 SAK (Rec: 03/17/21 16:21 SAK [id number]) Therapeutic Exercises Supine Exercises serratus punch Reps/Minutes 5x shoulder flexion Equipment Used wand Reps/Minutes 5x Comments end range deep breathing Sidelying Exercises open book Reps/Minutes 5x Comments deep breathing at end range Sitting Exercises cervical rotation Reps/Minutes 5x sidebending Reps/Minutes 5x Comments hands behind neck seated twist Reps/Minutes 5x Comments end range deep breathing pulleys Sitting Exercise Name flexion, scaption Reps/Minutes 5x ea Comments end range deep breathing into the tight spots Manual Therapy Treatment Soft Tissue Mobilization scar massage Body Location right breast Mobilization Type Myofascial Release Intensity/Depth gentle Body Position Supine Comments tender Joint Mobilizations scapula Direction sup/in, med/lat, upward/ downward rotation Body Position Sidelying Lymphedema Treatment Manual Lymphatic Drainage Location R breast and subaxillary region Duration 38 min Comments Focused on AAA, NORMA, and AIA to increase lymphangiomotoricity, promote drainage. Sequential Lymphedema Exercises Comments see exercises as above Patient Education Compression Garments discussed options, shown online, given information and measurements Self Manual Lymphatic Drainage initial instruction and given information regarding [facility] PT video Sequential Lymphedema Exercises ex initiated as above Other patient shown and issued chip bags and helped patient insert inside of sports bra; lateral thorax and breast, lumpectomy scar, subaxillary region Other Other Patient noted to have fibrosis in tissue 3 wide band at bra line lateral trunk, decreased scar mobility of lumpectomy scar and lymphedem in her breast on right PT-OP-T Assessment and Plan Start: 03/15/21 12:52 Freq: Status: Active Protocol: Document 03/17/21 14:29 [facility] (Rec: 03/17/21 16:21 [facility] [id number]) Physical Therapy Assessment Goals Four Impairment impaired strength RUE Snf Goal (LTG) Pt will improve RUE strength to 4+/5 globally to promote shoulder stability and ability to participate in yoga activities. LTG Duration 12 weeks - 06/07/21 Three Impairment impaired ROM RUE Short Term Goal (STG) Pt will be independent with HEP aimed at improving RUE ROM to support therapy services provided in clinic. STG Duration 4 weeks - 04/12/21 Lamination Machine Operator Goal (LTG) Pt will improve RUE flexion and abduction by 10 degrees and extension by 5 degrees to improve her ability to participate in self-care. LTG Duration 12 weeks - 06/07/21 Two Impairment no compression garment Short Term Goal (STG) Patient will be able to teach back regarding benefits and safe use of compression for edema reduction and long-term managemetn STG Duration 4 weeks - 04/12/21 Lamination Machine Operator Goal (LTG) When stable, patient will be measured and fit for appropriate compression garments. She will be able to don and doff correctly and safely. LTG Duration 12 weeks - 06/07/21 One Impairment function-limiting swelling RUE and trunk Short Term Goal (STG) Pt will be educated in self- MLD and compression wrapping/ compression alternative. STG Duration 4 weeks - 04/12/21 Lamination Machine Operator Goal (LTG) Decrease proximal arm and trunk swelling to stable (no change >1 cm over the course of one week) LTG Duration 12 weeks - 06/07/21 Assessment Summary Assessment Patient also noted to have decreased scar mobility of lumpectomy scar, lymphedema right breast, fibrosis of tissue lateral trunk toward end of the day. Discussed compression options including recommendation for arm sleeve as well as compression bra; patient to look at further online, consult further with PT as needed, and order. Patient also given informatin regarding website [employer] for further instruction in self-massage as started today. Initiated therapeutic exercise to facilitate lymphatic flow and work on right shoulder and scapular ROM;she was issued written handout. Patient demonstrated good understanding of the above, appears highly motivated to comply. Physical Therapy Plan Frequency and Duration Frequency of Treatment 20 visits Duration of Treatment 12 weeks Plan of Care Start Date 03/15/21 Plan of Care End Date 06/07/21 Therapeutic Interventions Therapeutic Interventions Home Exercise Program, Lymphedema Management,Manual Therapy,Patient/Caregiver Education,Self-Care/Home Management,Soft Tissue Mobilization,Therapeutic Activities,Therapeutic Exercises Other Therapeutic Interventions edema management Next Visit Focus/Plan Next Note Type Treatment Note Next Visit Plan Skin care, MLD, compression bandaging, and ther ex to reduce edema. Continue education on pathology and rationale for treatment.
--- NOTE | 2021-03-24 16:00 | PT.OTN ---
Current Diagnoses Malignant neoplasm of unspecified site of right female breast (03/24/21) Lymphedema, not elsewhere classified (03/24/21) Estrogen receptor positive status [ER+] (03/24/21) Physical Therapy Treatment Note PT-OP-A Visit Information Start: 03/15/21 12:52 Freq: Status: Active Protocol: Document 03/24/21 14:34 SAK (Rec: 03/24/21 15:05 SAK [id number]) Out-Patient Physical Therapy Visit Information Visit Information Visit Type Treatment Note Visit Note Watched videos at home, looked at compression sleeves and bras and has a few questions. Did self-massage, wore ship bag, got sports bra, and noticed a visible difference. Visit Start Time 14:30 Visit Stop Time 15:25 Total Visit Minutes 85 Visit Number 3 Number of TECHNICAL RECRUITER Visits 0 Evaluation Information Evaluation Date 03/15/21 PT-OP-B Current Condition Start: 03/15/21 12:52 Freq: Status: Active Protocol: Document 03/24/21 14:34 SAK (Rec: 03/24/21 15:05 [facility] [id number]) Current Condition History of Current Condition Onset Date late 2019 Current Complaints RUE and trunk swelling/ lymphedema; decreased RUE ROM History of Current Condition Diagnosed with 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 She consulted with [facility] but was treated more locally. On July 22, 2020, pt underwent R breast lumpectomy and sentinel lymph node biopsy ( six nodes removed, 2 positive for metastasis) at [facility] in [place]. She completed a course of advujant radiation at [facility] on 11/19/20 . She is currently maintained on letrozole to reduce overall estrogen load. Pt reports lymphedema onset late 2019 and was seen by a PT at [facility] earlier this year. Treatment consisted primarily of MLD with good results/ reduction and improved range of motion. She now reports it is difficult for her to sleep on either side. When she sleeps on her left, she feels pulling in the right breast, axilla, and posterior trunk. Sleeping on her right side is too painful. She still has swelling and reports it is better in the morning, worse as the day wears on. She reports less swelling if not wearing a bra but it still gets worse throughout the day. The area becomes more dense and changes color as swelling increases. Prior Treatments and Tests Cancer treatment as noted above and lymphedema PT earlier this year. PT-OP-C Subjective Start: 03/15/21 12:52 Freq: Status: Active Protocol: Document 03/15/21 16:00 AW (Rec: 03/15/21 17:38 AW [email or web address]) Patient Questionnaires Lymphedema Life Impact Score Lymphedema Score 26 Lymphedema Impairment 1 to 19% Impaired (Score 19-32 ) OP-PT Pain Assessment Pain Assessment Grid Paper Pain Assessment Grid Completed Yes: scanned to EMR PT-OP-F Manual Assessment Start: 03/15/21 12:52 Freq: Status: Active Protocol: Document 03/15/21 16:00 AW (Rec: 03/15/21 17:45 AW [email or web address]) Manual Assessments Soft Tissue Assessment Soft Tissue Mobility Assessment No fibrotic tissue appreciated in RUE. There is density along the surgical incision and swelling noted in axilla, anteriorly on the chest, and posteriorly toward the scapula . PT-OP-K Range of Motion Start: 03/15/21 12:52 Freq: Status: Active Protocol: Document 03/15/21 16:00 AW (Rec: 03/15/21 17:45 AW [email or web address]) Cervical Spine Range of Motion Cervical Spine Active Comments All cervical ROM WNL including 60 degrees of rotation bilaterally. No unilateral deficit noted. Shoulder Goniometric Range of Motion Shoulder Right Active Testing Position Sitting Flexion 140 Extension 20 Abduction 140 Comments All right shoulder ROM restricted by swelling, pain, surgical scar tissue, quality of irradiated tissue. Distal ROM WNL. Left Active Testing Position Sitting Flexion 160 Extension 35 Abduction 170 Comments Rotation WNL Shoulder ROM Limitations Shoulder ROM Limitations Soft Tissue Tightness,Pain PT-OP-M Strength Start: 03/15/21 12:52 Freq: Status: Active Protocol: Document 03/15/21 16:00 AW (Rec: 03/15/21 17:52 AW [email or web address]) Shoulder Strength Shoulder Manual Muscle Testing Right Flexion 3+ Fair+ Extension 4- Good- Abduction (C5) 3+ Fair+ External Rotation 4- Good- Internal Rotation 4 Good Comments MMT produces pain in shoulder, proximal trunk. Left Flexion 4+ Good+ Extension 4+ Good+ Abduction (C5) 4+ Good+ External Rotation 4+ Good+ Internal Rotation 4+ Good+ Elbow/Forearm Strength Elbow and Forearm Manual Muscle Testing bilateral Comments R grossly 4+/5 L grossly 4-/5 Hand Veterinary X Ray Operator/Pinch Strength Hand Dominance Hand Dominance Right Hand Strength Right Comments Not tested with dynamometer, but right 4-/5 and left 4+/5 PT-OP-N Lymphedema Start: 03/15/21 12:52 Freq: Status: Active Protocol: Document 03/15/21 16:00 AW (Rec: 03/15/21 17:52 AW [email or web address]) Lymphedema Measurements Upper Extremity Circumference Measurements Right Affected MCP 18 cm Dorsum of Hand 18 cm Wrist 16 cm 10 cm From Wrist Crease 18.9 cm 20 cm From Wrist Crease 23.3 cm 30 cm From Wrist Crease 25.5 cm 40 cm From Wrist Crease 28.5 cm Elbow Joint 24.1 cm Axilla 33 cm Left Unaffected MCP 17.9 cm Dorsum of Hand 18.1 cm Wrist 15.7 cm 10 cm From Wrist Crease 19.2 cm 20 cm From Wrist Crease 22.9 cm 30 cm From Wrist Crease 26.2 cm 40 cm From Wrist Crease 31.9 cm Elbow Joint 24.1 cm Axilla 31 cm - chest at axilla: 90.1 chest at level of xyphoid process: 82.5 Comments Lymphedema Comments Pt measured in supine PT-OP-Q Treatments Start: 03/15/21 12:52 Freq: Status: Active Protocol: Document 03/24/21 14:34 [facility] (Rec: 03/24/21 15:05 SAK [id number]) Therapeutic Exercises Sidelying Exercises open book Reps/Minutes 5x Comments deep breathing at end range Sitting Exercises pec stretch Reps/Minutes 3x Comments ball at thoracic spine seated twist Reps/Minutes 5x Comments end range deep breathing pulleys Sitting Exercise Name flexion, scaption Reps/Minutes 5x ea Comments end range deep breathing into the tight spots Standing Exercises trunk sidebending Reps/Minutes 2x10 modfied downward dog Reps/Minutes 2x30 Comments counter height Manual Therapy Treatment Soft Tissue Mobilization scar massage Body Location right breast Mobilization Type Myofascial Release,Rolling Intensity/Depth gentle Body Position Supine Comments tender Other Other Manual Treatments circumferential measurements right arm and trunk Lymphedema Treatment Manual Lymphatic Drainage Location R breast and subaxillary region Duration 40 min Comments Focused on AAA, NORMA, and AIA, right breast to increase lymphangiomotoricity, promote drainage, fibrosis reduction Sequential Lymphedema Exercises Comments see exercises as above Patient Education Compression Garments further discussion and measurements for sizing Self Manual Lymphatic Drainage reviewed Sequential Lymphedema Exercises reviewed Other patient wearing very light compression bra with wide straps asking for assessmesnt of fit; good fit, minimal compression. States she has been wearing chip bag in bra but didn't wear to PT, will next time for PT to assess compression. After measurement recommendation for compression bra with life science research assistant panel as patient in between medium and large size from [employer], patient to order. Length of arm measured to assist with sizing for comression sleeve. PT-OP-T Assessment and Plan Start: 03/15/21 12:52 Freq: Status: Active Protocol: Document 03/24/21 14:34 SAK (Rec: 03/24/21 15:05 SAK [id number]) Physical Therapy Assessment Goals Four Impairment impaired strength RUE Fpc Goal (LTG) Pt will improve RUE strength to 4+/5 globally to promote shoulder stability and ability to participate in yoga activities. LTG Duration 12 weeks - 06/07/21 Three Impairment impaired ROM RUE Short Term Goal (STG) Pt will be independent with HEP aimed at improving RUE ROM to support therapy services provided in clinic. STG Duration 4 weeks - 04/12/21 Enterprise Mobility Architect Goal (LTG) Pt will improve RUE flexion and abduction by 10 degrees and extension by 5 degrees to improve her ability to participate in self-care. LTG Duration 12 weeks - 06/07/21 Two Impairment no compression garment Short Term Goal (STG) Patient will be able to teach back regarding benefits and safe use of compression for edema reduction and long-term managemetn STG Duration 4 weeks - 04/12/21 Enterprise Mobility Architect Goal (LTG) When stable, patient will be measured and fit for appropriate compression garments. She will be able to don and doff correctly and safely. LTG Duration 12 weeks - 06/07/21 One Impairment function-limiting swelling RUE and trunk Short Term Goal (STG) Pt will be educated in self- MLD and compression wrapping/ compression alternative. STG Duration 4 weeks - 04/12/21 Fpc Goal (LTG) Decrease proximal arm and trunk swelling to stable (no change >1 cm over the course of one week) LTG Duration 12 weeks - 06/07/21 Progress Towards Goals Progress Towards Goals Progressing Toward Goals Assessment Summary Assessment Good progress with compliance to HEP, self-massage, exploring compression garments , watching educational videos recommended. Noted decreased tissue firmness right breast today. Physical Therapy Plan Frequency and Duration Frequency of Treatment 20 visits Duration of Treatment 12 weeks Plan of Care Start Date 03/15/21 Plan of Care End Date 06/07/21 Therapeutic Interventions Therapeutic Interventions Home Exercise Program, Lymphedema Management,Manual Therapy,Patient/Caregiver Education,Self-Care/Home Management,Soft Tissue Mobilization,Therapeutic Activities,Therapeutic Exercises Other Therapeutic Interventions edema management Next Visit Focus/Plan Next Note Type Treatment Note Next Visit Plan Continue PT per POC, assure patient has ordered compression garments, assess if she has received. Continue PT for lymphedema management, flexibility and tissue mobility.
--- NOTE | 2021-03-28 16:19 | PT.OTN ---
Current Diagnoses Malignant neoplasm of unspecified site of right female breast (03/28/21) Lymphedema, not elsewhere classified (03/28/21) Estrogen receptor positive status [ER+] (03/28/21) Physical Therapy Treatment Note PT-OP-A Visit Information Start: 03/15/21 12:52 Freq: Status: Active Protocol: Document 03/28/21 14:29 SAK (Rec: 03/28/21 15:09 SAK [id number]) Out-Patient Physical Therapy Visit Information Visit Information Visit Type Treatment Note Visit Start Time 14:30 Visit Stop Time 15:28 Total Visit Minutes 88 Visit Number 4 Evaluation Information Evaluation Date 03/15/21 PT-OP-B Current Condition Start: 03/15/21 12:52 Freq: Status: Active Protocol: Document 03/28/21 14:29 SAK (Rec: 03/28/21 15:09 SAK [id number]) Current Condition History of Current Condition Onset Date late 2019 Current Complaints RUE and trunk swelling/ lymphedema; decreased RUE ROM History of Current Condition Diagnosed with 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 She consulted with [facility] but was treated more locally. On July 22, 2020, pt underwent R breast lumpectomy and sentinel lymph node biopsy ( six nodes removed, 2 positive for metastasis) at [facility] in [place]. She completed a course of advujant radiation at [facility] on 11/19/20 . She is currently maintained on letrozole to reduce overall estrogen load. Pt reports lymphedema onset late 2019 and was seen by a PT at [facility] earlier this year. Treatment consisted primarily of MLD with good results/ reduction and improved range of motion. She now reports it is difficult for her to sleep on either side. When she sleeps on her left, she feels pulling in the right breast, axilla, and posterior trunk. Sleeping on her right side is too painful. She still has swelling and reports it is better in the morning, worse as the day wears on. She reports less swelling if not wearing a bra but it still gets worse throughout the day. The area becomes more dense and changes color as swelling increases. Prior Treatments and Tests Cancer treatment as noted above and lymphedema PT earlier this year. PT-OP-C Subjective Start: 03/15/21 12:52 Freq: Status: Active Protocol: Document 03/28/21 14:29 SAK (Rec: 03/28/21 15:09 [facility] [id number]) OP-PT Subjective Patient Comments Patient Comments Reports seeing some ridges of swelling in right UE but after she did massage as instructed they decreased a lot. Feels she is getting better, improved range of motion. Tried Spanx body suit and said felt like too much pressure and too hot, can't visualize wearing compression bra talked about due to too confining and tight, feels like she is progressing well right now without and would like to wait , possibly until fall when it wouldn't be so hot. Showed patient compression bra from [employer] with learning and development associate compression. PT-OP-F Manual Assessment Start: 03/15/21 12:52 Freq: Status: Active Protocol: Document 03/15/21 16:00 AW (Rec: 03/15/21 17:45 AW [email or web address]) Manual Assessments Soft Tissue Assessment Soft Tissue Mobility Assessment No fibrotic tissue appreciated in RUE. There is density along the surgical incision and swelling noted in axilla, anteriorly on the chest, and posteriorly toward the scapula . PT-OP-K Range of Motion Start: 03/15/21 12:52 Freq: Status: Active Protocol: Document 03/15/21 16:00 AW (Rec: 03/15/21 17:45 AW [id number]) Cervical Spine Range of Motion Cervical Spine Active Comments All cervical ROM WNL including 60 degrees of rotation bilaterally. No unilateral deficit noted. Shoulder Goniometric Range of Motion Shoulder Right Active Testing Position Sitting Flexion 140 Extension 20 Abduction 140 Comments All right shoulder ROM restricted by swelling, pain, surgical scar tissue, quality of irradiated tissue. Distal ROM WNL. Left Active Testing Position Sitting Flexion 160 Extension 35 Abduction 170 Comments Rotation WNL Shoulder ROM Limitations Shoulder ROM Limitations Soft Tissue Tightness,Pain PT-OP-M Strength Start: 03/15/21 12:52 Freq: Status: Active Protocol: Document 03/15/21 16:00 AW (Rec: 03/15/21 17:52 AW [id number]) Shoulder Strength Shoulder Manual Muscle Testing Right Flexion 3+ Fair+ Extension 4- Good- Abduction (C5) 3+ Fair+ External Rotation 4- Good- Internal Rotation 4 Good Comments MMT produces pain in shoulder, proximal trunk. Left Flexion 4+ Good+ Extension 4+ Good+ Abduction (C5) 4+ Good+ External Rotation 4+ Good+ Internal Rotation 4+ Good+ Elbow/Forearm Strength Elbow and Forearm Manual Muscle Testing bilateral Comments R grossly 4+/5 L grossly 4-/5 Hand Title I Math Tutor/Pinch Strength Hand Dominance Hand Dominance Right Hand Strength Right Comments Not tested with dynamometer, but right 4-/5 and left 4+/5 PT-OP-N Lymphedema Start: 03/15/21 12:52 Freq: Status: Active Protocol: Document 03/28/21 14:29 [facility] (Rec: 03/28/21 16:19 [facility] [id number]) Lymphedema Measurements Upper Extremity Circumference Measurements Right Affected MCP 18.2 cm Dorsum of Hand 18.5 cm Wrist 16 cm 10 cm From Wrist Crease 20.4 cm 20 cm From Wrist Crease 24.5 cm 30 cm From Wrist Crease 27 cm 40 cm From Wrist Crease 29 cm Elbow Joint 24.6 cm Axilla 36 cm PT-OP-Q Treatments Start: 03/15/21 12:52 Freq: Status: Active Protocol: Document 03/28/21 14:29 [facility] (Rec: 03/28/21 15:09 [facility] [id number]) Therapeutic Exercises Supine Exercises shoulder flexion Supine Exercise Name AAROM pin and stretch of scar tissue, subscap Reps/Minutes 6x Sitting Exercises pec stretch Reps/Minutes 3x Comments ball at thoracic spine seated twist Reps/Minutes 5x Comments end range deep breathing pulleys Sitting Exercise Name flexion, scaption Reps/Minutes 5x ea Comments end range deep breathing into the tight spots Standing Exercises trunk sidebending Reps/Minutes 2x10 modfied downward dog Reps/Minutes 2x30 Comments chair seat heighty Manual Therapy Treatment Soft Tissue Mobilization scar massage Body Location right breast Mobilization Type Myofascial Release,Rolling Intensity/Depth gentle Body Position Supine Comments tender Joint Mobilizations scapula Direction sup/in, med/lat, upward/ downward rotation Body Position Sidelying Other Other Manual Treatments circumferential measurements right arm and trunk Self-Care/Home Management Treatment Education Patient Education Home Exercise Program Other Education self-massage of scar, more than superficial Lymphedema Treatment Manual Lymphatic Drainage Location R breast and subaxillary region Duration 40 min Comments Focused on AAA, NORMA, and AIA, right breast to increase lymphangiomotoricity, promote drainage, fibrosis reduction. Scar mobilization. Patient instructed to do at home with vitamin E oil. Patient Education Compression Garments shown sample Juzo compression sleeve 20-30mm HG, Easy Slide for donning Other patient also shown compression glove as option if notices swelling in hand. Discussed need to wear chip bags more frequently in bra for decrease in fibrosis in subaxillary region, scar PT-OP-T Assessment and Plan Start: 03/15/21 12:52 Freq: Status: Active Protocol: Document 03/28/21 14:29 [facility] (Rec: 03/28/21 15:09 [facility] [id number]) Physical Therapy Assessment Goals Four Impairment impaired strength RUE Fci Goal (LTG) Pt will improve RUE strength to 4+/5 globally to promote shoulder stability and ability to participate in yoga activities. LTG Duration 12 weeks - 06/07/21 Three Impairment impaired ROM RUE Short Term Goal (STG) Pt will be independent with HEP aimed at improving RUE ROM to support therapy services provided in clinic. STG Duration 4 weeks - 04/12/21 Infant Caregiver Goal (LTG) Pt will improve RUE flexion and abduction by 10 degrees and extension by 5 degrees to improve her ability to participate in self-care. LTG Duration 12 weeks - 06/07/21 Two Impairment no compression garment Short Term Goal (STG) Patient will be able to teach back regarding benefits and safe use of compression for edema reduction and long-term managemetn STG Duration 4 weeks - 04/12/21 Fci Goal (LTG) When stable, patient will be measured and fit for appropriate compression garments. She will be able to don and doff correctly and safely. LTG Duration 12 weeks - 06/07/21 One Impairment function-limiting swelling RUE and trunk Short Term Goal (STG) Pt will be educated in self- MLD and compression wrapping/ compression alternative. STG Duration 4 weeks - 04/12/21 [facility]ci Goal (LTG) Decrease proximal arm and trunk swelling to stable (no change >1 cm over the course of one week) LTG Duration 12 weeks - 06/07/21 Progress Towards Goals Progress Towards Goals Progressing Toward Goals Assessment Summary Assessment Patient circumferential measurements actually showed increases despite patient breast feeling more soft and less swollen, patient feeling UE lymphedema improved. Will measure again tomorrow to watch for trends in level of edema. Patient highly compliant to HEP and self- massage. Edema and fibrosis in right breast causes it to be 3/4 elevated above left. Patient issued loaner compression sleeve for trial, to be worn only during the day , and was instructed to wear both chip bags in bra on right subaxillary area an under breast, patient demonstrated good understanding. Physical Therapy Plan Frequency and Duration Frequency of Treatment 20 visits Duration of Treatment 12 weeks Plan of Care Start Date 03/15/21 Plan of Care End Date 06/07/21 Therapeutic Interventions Therapeutic Interventions Home Exercise Program, Lymphedema Management,Manual Therapy,Patient/Caregiver Education,Self-Care/Home Management,Soft Tissue Mobilization,Therapeutic Activities,Therapeutic Exercises Other Therapeutic Interventions edema management Next Visit Focus/Plan Next Note Type Treatment Note Next Visit Plan Further consultation regarding compression garments as needed, take circumferential measurements, discuss option of sequential pneumatic pump if conservative measures not adequate in controlling her lymphedema; feel she may be a good candidate.
--- NOTE | 2021-03-29 16:13 | PT.OTN ---
Current Diagnoses Malignant neoplasm of unspecified site of right female breast (03/29/21) Lymphedema, not elsewhere classified (03/29/21) Estrogen receptor positive status [ER+] (03/29/21) Physical Therapy Treatment Note PT-OP-A Visit Information Start: 03/15/21 12:52 Freq: Status: Active Protocol: Document 03/29/21 14:31 SAK (Rec: 03/29/21 14:59 SAK [id number]) Out-Patient Physical Therapy Visit Information Visit Information Visit Type Treatment Note Visit Start Time 14:30 Visit Stop Time 15:55 Total Visit Minutes 85 Visit Number 5 Evaluation Information Evaluation Date 03/15/21 PT-OP-B Current Condition Start: 03/15/21 12:52 Freq: Status: Active Protocol: Document 03/29/21 14:31 SAK (Rec: 03/29/21 14:59 SAK [id number]) Current Condition History of Current Condition Onset Date late 2019 Current Complaints RUE and trunk swelling/ lymphedema; decreased RUE ROM History of Current Condition Diagnosed with 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 She consulted with [facility] but was treated more locally. On July 22, 2020, pt underwent R breast lumpectomy and sentinel lymph node biopsy ( six nodes removed, 2 positive for metastasis) at [facility] in [place]. She completed a course of advujant radiation at [facility] on 11/19/20 . She is currently maintained on letrozole to reduce overall estrogen load. Pt reports lymphedema onset late 2019 and was seen by a PT at [facility] earlier this year. Treatment consisted primarily of MLD with good results/ reduction and improved range of motion. She now reports it is difficult for her to sleep on either side. When she sleeps on her left, she feels pulling in the right breast, axilla, and posterior trunk. Sleeping on her right side is too painful. She still has swelling and reports it is better in the morning, worse as the day wears on. She reports less swelling if not wearing a bra but it still gets worse throughout the day. The area becomes more dense and changes color as swelling increases. Prior Treatments and Tests Cancer treatment as noted above and lymphedema PT earlier this year. PT-OP-C Subjective Start: 03/15/21 12:52 Freq: Status: Active Protocol: Document 03/29/21 14:31 SAK (Rec: 03/29/21 14:59 [facility] [id number]) OP-PT Subjective Patient Comments Patient Comments difficulty tolerating compression sleeve yesterday, better tolerance today. Feels tired today, c/o inflexibility after cancer treatment. Used to do very sophisticated yoga. Feels making progress with softening of tissue fibrosis in her breast, was able to wear compression sleeve all day today prior to PT. PT-OP-F Manual Assessment Start: 03/15/21 12:52 Freq: Status: Active Protocol: Document 03/15/21 16:00 AW (Rec: 03/15/21 17:45 AW [id number]) Manual Assessments Soft Tissue Assessment Soft Tissue Mobility Assessment No fibrotic tissue appreciated in RUE. There is density along the surgical incision and swelling noted in axilla, anteriorly on the chest, and posteriorly toward the scapula . PT-OP-K Range of Motion Start: 03/15/21 12:52 Freq: Status: Active Protocol: Document 03/15/21 16:00 AW (Rec: 03/15/21 17:45 AW [id number]) Cervical Spine Range of Motion Cervical Spine Active Comments All cervical ROM WNL including 60 degrees of rotation bilaterally. No unilateral deficit noted. Shoulder Goniometric Range of Motion Shoulder Right Active Testing Position Sitting Flexion 140 Extension 20 Abduction 140 Comments All right shoulder ROM restricted by swelling, pain, surgical scar tissue, quality of irradiated tissue. Distal ROM WNL. Left Active Testing Position Sitting Flexion 160 Extension 35 Abduction 170 Comments Rotation WNL Shoulder ROM Limitations Shoulder ROM Limitations Soft Tissue Tightness,Pain PT-OP-M Strength Start: 03/15/21 12:52 Freq: Status: Active Protocol: Document 03/15/21 16:00 AW (Rec: 03/15/21 17:52 AW [id number]) Shoulder Strength Shoulder Manual Muscle Testing Right Flexion 3+ Fair+ Extension 4- Good- Abduction (C5) 3+ Fair+ External Rotation 4- Good- Internal Rotation 4 Good Comments MMT produces pain in shoulder, proximal trunk. Left Flexion 4+ Good+ Extension 4+ Good+ Abduction (C5) 4+ Good+ External Rotation 4+ Good+ Internal Rotation 4+ Good+ Elbow/Forearm Strength Elbow and Forearm Manual Muscle Testing bilateral Comments R grossly 4+/5 L grossly 4-/5 Hand Cheese Cooker/Pinch Strength Hand Dominance Hand Dominance Right Hand Strength Right Comments Not tested with dynamometer, but right 4-/5 and left 4+/5 PT-OP-N Lymphedema Start: 03/15/21 12:52 Freq: Status: Active Protocol: Document 03/28/21 14:29 [facility] (Rec: 03/28/21 16:19 [facility] [id number]) Lymphedema Measurements Upper Extremity Circumference Measurements Right Affected MCP 18.2 cm Dorsum of Hand 18.5 cm Wrist 16 cm 10 cm From Wrist Crease 20.4 cm 20 cm From Wrist Crease 24.5 cm 30 cm From Wrist Crease 27 cm 40 cm From Wrist Crease 29 cm Elbow Joint 24.6 cm Axilla 36 cm PT-OP-Q Treatments Start: 03/15/21 12:52 Freq: Status: Active Protocol: Document 03/29/21 14:31 [facility] (Rec: 03/29/21 16:13 [facility] [id number]) Gym Equipment Cable Column (Body Solid) scapular shrug Details inferior (lower trap facil) Resistance 10 Reps/Time 10x, manual facilitation Therapeutic Exercises Sitting Exercises pulleys Sitting Exercise Name flexion, scaption Reps/Minutes 5x ea Comments end range deep breathing into the tight spots Standing Exercises wall slide Reps/Minutes 5x10 Comments deep breathing at end range Manual Therapy Treatment Soft Tissue Mobilization scar massage Body Location right breast Mobilization Type Myofascial Release,Rolling Intensity/Depth Moderate Body Position Supine Comments use of Dycem for MFR Self-Care/Home Management Treatment Education Patient Education Home Exercise Program Other Education self-massage of scar using Dycem Lymphedema Treatment Manual Lymphatic Drainage Location R breast and subaxillary region Duration 40 min Comments Focused on AAA, NORMA, and AIA, right breast to increase lymphangiomotoricity, promote drainage, fibrosis reduction. Scar mobilization. Lymphedema Wrapping Other compression bra, 2 chip bags; one lateral trunk, one inferior aspect breast Sequential Lymphedema Exercises Comments patient continues at home Compression Garment Assessment Compression Garment Assessment Details patient wearing loaner compression sleeve and sports bra with chip bags correctly PT-OP-T Assessment and Plan Start: 03/15/21 12:52 Freq: Status: Active Protocol: Document 03/29/21 14:31 [facility] (Rec: 03/29/21 14:59 [facility] [id number]) Physical Therapy Assessment Goals Four Impairment impaired strength RUE Group Home Goal (LTG) Pt will improve RUE strength to 4+/5 globally to promote shoulder stability and ability to participate in yoga activities. LTG Duration 12 weeks - 06/07/21 Three Impairment impaired ROM RUE Short Term Goal (STG) Pt will be independent with HEP aimed at improving RUE ROM to support therapy services provided in clinic. STG Duration 4 weeks - 04/12/21 Graphic Design Intern Goal (LTG) Pt will improve RUE flexion and abduction by 10 degrees and extension by 5 degrees to improve her ability to participate in self-care. LTG Duration 12 weeks - 06/07/21 Two Impairment no compression garment Short Term Goal (STG) Patient will be able to teach back regarding benefits and safe use of compression for edema reduction and long-term managemetn STG Duration 4 weeks - 04/12/21 Group Home Goal (LTG) When stable, patient will be measured and fit for appropriate compression garments. She will be able to don and doff correctly and safely. LTG Duration 12 weeks - 06/07/21 One Impairment function-limiting swelling RUE and trunk Short Term Goal (STG) Pt will be educated in self- MLD and compression wrapping/ compression alternative. STG Duration 4 weeks - 04/12/21 Graphic Design Intern Goal (LTG) Decrease proximal arm and trunk swelling to stable (no change >1 cm over the course of one week) LTG Duration 12 weeks - 06/07/21 Progress Towards Goals Progress Towards Goals Progressing Toward Goals Assessment Summary Assessment Patient has ordered compression bra and sleeve, donning assist. Fibrotic tissue continues to soften in breast, now mostly inferior aspect, decreased further with manual treatment today. Patient shown how to use Dycem for scar mobilization and demonstrated good understanding. Patient compliant to HEP and self massage, wearing sample compression sleeve, wearing chip bags in bra. Circumferential measurements stable, very minimal decreases distal forearm and subaxillary region. May need increased compression in bra, though patient reluctant to obtain recommended compression bra due to discomfort. Physical Therapy Plan Frequency and Duration Frequency of Treatment 20 visits Duration of Treatment 12 weeks Plan of Care Start Date 03/15/21 Plan of Care End Date 06/07/21 Therapeutic Interventions Therapeutic Interventions Home Exercise Program, Lymphedema Management,Manual Therapy,Patient/Caregiver Education,Self-Care/Home Management,Soft Tissue Mobilization,Therapeutic Activities,Therapeutic Exercises Other Therapeutic Interventions edema management Next Visit Focus/Plan Next Note Type Treatment Note Next Visit Plan Circumferential measurements, continue lymphedema management , assess any compression garments patient has obtained, manual techniques of fibrotic tissue to facilitate lymphatic flow and decreased pain.
--- NOTE | 2021-04-07 12:07 | PT.OTN ---
Current Diagnoses Malignant neoplasm of unspecified site of right female breast (04/07/21) Lymphedema, not elsewhere classified (04/07/21) Estrogen receptor positive status [ER+] (04/07/21) Physical Therapy Treatment Note PT-OP-A Visit Information Start: 03/15/21 12:52 Freq: Status: Active Protocol: Document 04/07/21 10:36 SAK (Rec: 04/07/21 12:07 SAK [id number]) Out-Patient Physical Therapy Visit Information Visit Information Visit Type Treatment Note Visit Start Time 10:30 Visit Stop Time 11:50 Total Visit Minutes 80 Visit Number 5 PT-OP-B Current Condition Start: 03/15/21 12:52 Freq: Status: Active Protocol: Document 03/29/21 14:31 SAK (Rec: 03/29/21 14:59 SAK [id number]) Current Condition History of Current Condition Onset Date late 2019 Current Complaints RUE and trunk swelling/ lymphedema; decreased RUE ROM History of Current Condition Diagnosed with 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 She consulted with [facility] but was treated more locally. On July 22, 2020, pt underwent R breast lumpectomy and sentinel lymph node biopsy ( six nodes removed, 2 positive for metastasis) at [facility] in [place]. She completed a course of advujant radiation at [facility] on 11/19/20 . She is currently maintained on letrozole to reduce overall estrogen load. Pt reports lymphedema onset late 2019 and was seen by a PT at [facility] earlier this year. Treatment consisted primarily of MLD with good results/ reduction and improved range of motion. She now reports it is difficult for her to sleep on either side. When she sleeps on her left, she feels pulling in the right breast, axilla, and posterior trunk. Sleeping on her right side is too painful. She still has swelling and reports it is better in the morning, worse as the day wears on. She reports less swelling if not wearing a bra but it still gets worse throughout the day. The area becomes more dense and changes color as swelling increases. Prior Treatments and Tests Cancer treatment as noted above and lymphedema PT earlier this year. PT-OP-C Subjective Start: 03/15/21 12:52 Freq: Status: Active Protocol: Document 04/07/21 10:36 SAK (Rec: 04/07/21 12:07 SAK [id number]) OP-PT Subjective Patient Comments Patient Comments Thinks had some food poisoning . Slept Sunday, Sunday, and Sunday. Has tried to do HEP despite being sick, prior to being sick had been very compliant to HEP. Still feeling swelling under armpit. Doesn't like Dycem. Feels swelling in breast has gone down at well. Has new bra, has chip bags and has been wearing especially with exercises. compression sleeve comes tomorrow, wore borrowed one consistently. PT-OP-F Manual Assessment Start: 03/15/21 12:52 Freq: Status: Active Protocol: Document 03/15/21 16:00 AW (Rec: 03/15/21 17:45 AW [id number]) Manual Assessments Soft Tissue Assessment Soft Tissue Mobility Assessment No fibrotic tissue appreciated in RUE. There is density along the surgical incision and swelling noted in axilla, anteriorly on the chest, and posteriorly toward the scapula . PT-OP-K Range of Motion Start: 03/15/21 12:52 Freq: Status: Active Protocol: Document 03/15/21 16:00 AW (Rec: 03/15/21 17:45 AW [id number]) Cervical Spine Range of Motion Cervical Spine Active Comments All cervical ROM WNL including 60 degrees of rotation bilaterally. No unilateral deficit noted. Shoulder Goniometric Range of Motion Shoulder Right Active Testing Position Sitting Flexion 140 Extension 20 Abduction 140 Comments All right shoulder ROM restricted by swelling, pain, surgical scar tissue, quality of irradiated tissue. Distal ROM WNL. Left Active Testing Position Sitting Flexion 160 Extension 35 Abduction 170 Comments Rotation WNL Shoulder ROM Limitations Shoulder ROM Limitations Soft Tissue Tightness,Pain PT-OP-M Strength Start: 03/15/21 12:52 Freq: Status: Active Protocol: Document 03/15/21 16:00 AW (Rec: 03/15/21 17:52 AW [id number]) Shoulder Strength Shoulder Manual Muscle Testing Right Flexion 3+ Fair+ Extension 4- Good- Abduction (C5) 3+ Fair+ External Rotation 4- Good- Internal Rotation 4 Good Comments MMT produces pain in shoulder, proximal trunk. Left Flexion 4+ Good+ Extension 4+ Good+ Abduction (C5) 4+ Good+ External Rotation 4+ Good+ Internal Rotation 4+ Good+ Elbow/Forearm Strength Elbow and Forearm Manual Muscle Testing bilateral Comments R grossly 4+/5 L grossly 4-/5 Hand Printing Equipment Mechanic Apprentice/Pinch Strength Hand Dominance Hand Dominance Right Hand Strength Right Comments Not tested with dynamometer, but right 4-/5 and left 4+/5 PT-OP-N Lymphedema Start: 03/15/21 12:52 Freq: Status: Active Protocol: Document 04/07/21 10:[address] [facility] (Rec: 04/07/21 12:[address] [facility] [id number]) Lymphedema Measurements Upper Extremity Circumference Measurements Right Affected MCP 18.2 cm Dorsum of Hand 18.8 cm Wrist 16.4 cm 10 cm From Wrist Crease 18.8 cm 20 cm From Wrist Crease 22.9 cm 30 cm From Wrist Crease 23.4 cm 40 cm From Wrist Crease 25.3 cm Elbow Joint 24.1 cm Axilla 35.3 cm PT-OP-Q Treatments Start: 03/15/21 12:52 Freq: Status: Active Protocol: Document 04/07/21 10:[address] [facility] (Rec: 04/07/21 12:[address] [facility] [id number]) Gym Equipment Cable Column (Body Solid) scapular shrug Details inferior (lower trap facil) Resistance 10 Reps/Time 10x, manual facilitation Therapeutic Exercises Supine Exercises serratus punch Reps/Minutes 5x Sidelying Exercises arm circles Sidelying Exercise Name CW and CCW Reps/Minutes 5x ea Sitting Exercises pulleys Sitting Exercise Name flexion, scaption Reps/Minutes 5x ea Comments end range deep breathing into the tight spots Standing Exercises wall slide Reps/Minutes 5x10 Comments deep breathing at end range Manual Therapy Treatment Soft Tissue Mobilization scar massage Body Location right breast Mobilization Type Myofascial Release,Rolling Intensity/Depth Moderate Body Position Supine Comments use of Dycem for MFR Other Other Manual Treatments circumferential measurements right arm and trunk Self-Care/Home Management Treatment Education Patient Education Home Exercise Program Activities Self-Care/Home Management Activities added sidelying arm circles; written handout Lymphedema Treatment Manual Lymphatic Drainage Location R breast and subaxillary region Duration 40 min Comments Focused on AAA, NORMA, and AIA, right breast to increase lymphangiomotoricity, promote drainage, fibrosis reduction. Scar mobilization. Lymphedema Wrapping Other compression bra, 2 chip bags; one lateral trunk, one inferior aspect breast Sequential Lymphedema Exercises Comments patient continues at home Compression Garment Assessment Compression Garment Assessment Details patient wearing loaner compression sleeve and sports bra with chip bags correctly Patient Education Compression Garments shown sample Luli compression sleeve 20-30mm HG, Easy Slide for donning PT-OP-T Assessment and Plan Start: 03/15/21 12:52 Freq: Status: Active Protocol: Document 04/07/21 10:[address] [facility] (Rec: 04/07/21 12:07 KIRAN [id number]) Physical Therapy Assessment Goals Four Impairment impaired strength RUE Residential Goal (LTG) Pt will improve RUE strength to 4+/5 globally to promote shoulder stability and ability to participate in yoga activities. LTG Duration 12 weeks - 06/07/21 Three Impairment impaired ROM RUE Short Term Goal (STG) Pt will be independent with HEP aimed at improving RUE ROM to support therapy services provided in clinic. STG Duration 4 weeks - 04/12/21 Residential Goal (LTG) Pt will improve RUE flexion and abduction by 10 degrees and extension by 5 degrees to improve her ability to participate in self-care. LTG Duration 12 weeks - 06/07/21 Two Impairment no compression garment Short Term Goal (STG) Patient will be able to teach back regarding benefits and safe use of compression for edema reduction and long-term managemetn STG Duration 4 weeks - 04/12/21 Logistics System Engineer Goal (LTG) When stable, patient will be measured and fit for appropriate compression garments. She will be able to don and doff correctly and safely. LTG Duration 12 weeks - 06/07/21 One Impairment function-limiting swelling RUE and trunk Short Term Goal (STG) Pt will be educated in self- MLD and compression wrapping/ compression alternative. STG Duration 4 weeks - 04/12/21 Logistics System Engineer Goal (LTG) Decrease proximal arm and trunk swelling to stable (no change >1 cm over the course of one week) LTG Duration 12 weeks - 06/07/21 Progress Towards Goals Progress Towards Goals Progressing Toward Goals Assessment Summary Assessment Circumferential measurements improved, patient highly compliant to self-care except after food poisening. Good goal progress. Patient wearing new compression bra , not wearing chip bags but wearing at home. ROM right shoulder improved. Physical Therapy Plan Frequency and Duration Frequency of Treatment 20 visits Duration of Treatment 12 weeks Plan of Care Start Date 03/15/21 Plan of Care End Date 06/07/21 Therapeutic Interventions Therapeutic Interventions Home Exercise Program, Lymphedema Management,Manual Therapy,Patient/Caregiver Education,Self-Care/Home Management,Soft Tissue Mobilization,Therapeutic Activities,Therapeutic Exercises Other Therapeutic Interventions edema management Next Visit Focus/Plan Next Note Type Treatment Note Next Visit Plan Continue PT per POC for lymphedema management, progress manual techniques to improve scar mobility and decrease tissue fibrosis.
--- NOTE | 2021-04-12 14:54 | PT.OTN ---
Current Diagnoses Malignant neoplasm of unspecified site of right female breast (04/12/21) Lymphedema, not elsewhere classified (04/12/21) Estrogen receptor positive status [ER+] (04/12/21) Physical Therapy Treatment Note PT-OP-A Visit Information Start: 03/15/21 12:52 Freq: Status: Active Protocol: Document 04/12/21 13:01 SAK (Rec: 04/12/21 13:23 SAK [id number]) Out-Patient Physical Therapy Visit Information Visit Information Visit Type Treatment Note Visit Start Time 13:00 Visit Stop Time 14:24 Total Visit Minutes 84 Visit Number 6 Evaluation Information Evaluation Date 03/15/21 PT-OP-B Current Condition Start: 03/15/21 12:52 Freq: Status: Active Protocol: Document 03/29/21 14:31 SAK (Rec: 03/29/21 14:59 SAK [id number]) Current Condition History of Current Condition Onset Date late 2019 Current Complaints RUE and trunk swelling/ lymphedema; decreased RUE ROM History of Current Condition Diagnosed with 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 She consulted with [facility] but was treated more locally. On July 22, 2020, pt underwent R breast lumpectomy and sentinel lymph node biopsy ( six nodes removed, 2 positive for metastasis) at [facility] in [place]. She completed a course of advujant radiation at [facility] on 11/19/20 . She is currently maintained on letrozole to reduce overall estrogen load. Pt reports lymphedema onset late 2019 and was seen by a PT at [facility] earlier this year. Treatment consisted primarily of MLD with good results/ reduction and improved range of motion. She now reports it is difficult for her to sleep on either side. When she sleeps on her left, she feels pulling in the right breast, axilla, and posterior trunk. Sleeping on her right side is too painful. She still has swelling and reports it is better in the morning, worse as the day wears on. She reports less swelling if not wearing a bra but it still gets worse throughout the day. The area becomes more dense and changes color as swelling increases. Prior Treatments and Tests Cancer treatment as noted above and lymphedema PT earlier this year. PT-OP-C Subjective Start: 03/15/21 12:52 Freq: Status: Active Protocol: Document 04/12/21 13:01 SAK (Rec: 04/12/21 14:54 [facility] [id number]) OP-PT Subjective Patient Comments Patient Comments Has been wearing 2 chip bags in her bra at home and they are doing their job. Continues with HEP and self- massage, skin care. Received [employer] Maria strong compression sleeve 20-30 mm Hg and likes better than sample of other brand/type. PT-OP-F Manual Assessment Start: 03/15/21 12:52 Freq: Status: Active Protocol: Document 03/15/21 16:00 AW (Rec: 03/15/21 17:45 AW [id number]) Manual Assessments Soft Tissue Assessment Soft Tissue Mobility Assessment No fibrotic tissue appreciated in RUE. There is density along the surgical incision and swelling noted in axilla, anteriorly on the chest, and posteriorly toward the scapula . PT-OP-K Range of Motion Start: 03/15/21 12:52 Freq: Status: Active Protocol: Document 03/15/21 16:00 AW (Rec: 03/15/21 17:45 AW [id number]) Cervical Spine Range of Motion Cervical Spine Active Comments All cervical ROM WNL including 60 degrees of rotation bilaterally. No unilateral deficit noted. Shoulder Goniometric Range of Motion Shoulder Right Active Testing Position Sitting Flexion 140 Extension 20 Abduction 140 Comments All right shoulder ROM restricted by swelling, pain, surgical scar tissue, quality of irradiated tissue. Distal ROM WNL. Left Active Testing Position Sitting Flexion 160 Extension 35 Abduction 170 Comments Rotation WNL Shoulder ROM Limitations Shoulder ROM Limitations Soft Tissue Tightness,Pain PT-OP-M Strength Start: 03/15/21 12:52 Freq: Status: Active Protocol: Document 03/15/21 16:00 AW (Rec: 03/15/21 17:52 AW [id number]) Shoulder Strength Shoulder Manual Muscle Testing Right Flexion 3+ Fair+ Extension 4- Good- Abduction (C5) 3+ Fair+ External Rotation 4- Good- Internal Rotation 4 Good Comments MMT produces pain in shoulder, proximal trunk. Left Flexion 4+ Good+ Extension 4+ Good+ Abduction (C5) 4+ Good+ External Rotation 4+ Good+ Internal Rotation 4+ Good+ Elbow/Forearm Strength Elbow and Forearm Manual Muscle Testing bilateral Comments R grossly 4+/5 L grossly 4-/5 Hand Buccaro/Pinch Strength Hand Dominance Hand Dominance Right Hand Strength Right Comments Not tested with dynamometer, but right 4-/5 and left 4+/5 PT-OP-N Lymphedema Start: 03/15/21 12:52 Freq: Status: Active Protocol: Document 04/12/21 13:01 [facility] (Rec: 04/12/21 14:54 [facility] [id number]) Lymphedema Measurements Upper Extremity Circumference Measurements Right Affected MCP 18.1 cm Dorsum of Hand 18.6 cm Wrist 15.9 cm 10 cm From Wrist Crease 19.7 cm 20 cm From Wrist Crease 23.9 cm 30 cm From Wrist Crease 26.9 cm 40 cm From Wrist Crease 28.9 cm Elbow Joint 24.3 cm Axilla 32.7 cm PT-OP-Q Treatments Start: 03/15/21 12:52 Freq: Status: Active Protocol: Document 04/12/21 13:01 [facility] (Rec: 04/12/21 14:54 [facility] [id number]) Therapeutic Exercises Sidelying Exercises arm circles Sidelying Exercise Name CW and CCW Reps/Minutes 5x ea open book Reps/Minutes 5x Comments deep breathing at end range Sitting Exercises pulleys Sitting Exercise Name flexion, scaption Reps/Minutes 5x ea Comments end range deep breathing into the tight spots Manual Therapy Treatment Soft Tissue Mobilization scar massage Body Location right breast Mobilization Type Myofascial Release,Rolling Intensity/Depth Moderate Body Position Supine Comments use of Dycem for MFR Other Other Manual Treatments circumferential measurements right arm and trunk PT-OP-T Assessment and Plan Start: 03/15/21 12:52 Freq: Status: Active Protocol: Document 04/12/21 13:01 [facility] (Rec: 04/12/21 13:23 [facility] [id number]) Physical Therapy Assessment Impairments Impairments Activity Tolerance,Edema, Functional Activities, Functional Mobility,Integument ,Pain,Posture,ROM,Sensation, Soft Tissue Mobility,Strength Goals Four Impairment impaired strength RUE Assisted Goal (LTG) Pt will improve RUE strength to 4+/5 globally to promote shoulder stability and ability to participate in yoga activities. LTG Duration 12 weeks - 06/07/21 Three Impairment impaired ROM RUE Short Term Goal (STG) Pt will be independent with HEP aimed at improving RUE ROM to support therapy services provided in clinic. STG Duration 4 weeks - 04/12/21 Assisted Goal (LTG) Pt will improve RUE flexion and abduction by 10 degrees and extension by 5 degrees to improve her ability to participate in self-care. LTG Duration 12 weeks - 06/07/21 Two Impairment no compression garment Short Term Goal (STG) Patient will be able to teach back regarding benefits and safe use of compression for edema reduction and long-term managemetn STG Duration 4 weeks - 04/12/21 Assisted Goal (LTG) When stable, patient will be measured and fit for appropriate compression garments. She will be able to don and doff correctly and safely. LTG Duration 12 weeks - 06/07/21 One Impairment function-limiting swelling RUE and trunk Short Term Goal (STG) Pt will be educated in self- MLD and compression wrapping/ compression alternative. STG Duration 4 weeks - 04/12/21 Space Studies Faculty Member Goal (LTG) Decrease proximal arm and trunk swelling to stable (no change >1 cm over the course of one week) LTG Duration 12 weeks - 06/07/21 Progress Towards Goals Progress Towards Goals Progressing Toward Goals Assessment Summary Assessment Shoulder flexion improved to 168, abduction to 165. Scar region firm but improving, patient able to tolerate soft tissue work with suction today for first time. Continues to be highly compliant to HEP and self-care. Physical Therapy Plan Frequency and Duration Frequency of Treatment 20 visits Duration of Treatment 12 weeks Plan of Care Start Date 03/15/21 Plan of Care End Date 06/07/21 Therapeutic Interventions Therapeutic Interventions Home Exercise Program, Lymphedema Management,Manual Therapy,Patient/Caregiver Education,Self-Care/Home Management,Soft Tissue Mobilization,Therapeutic Activities,Therapeutic Exercises Other Therapeutic Interventions edema management Next Visit Focus/Plan Next Note Type Treatment Note Next Visit Plan Continue PT per POC for lymphedema management, progress manual techniques to improve scar mobility and decrease tissue fibrosis.
--- NOTE | 2021-04-14 08:30 | PT.OTN ---
Current Diagnoses Malignant neoplasm of unspecified site of right female breast (04/14/21) Lymphedema, not elsewhere classified (04/14/21) Estrogen receptor positive status [ER+] (04/14/21) Physical Therapy Treatment Note PT-OP-A Visit Information Start: 03/15/21 12:52 Freq: Status: Active Protocol: Document 04/14/21 08:13 SAK (Rec: 04/14/21 08:22 SAK [id number]) Out-Patient Physical Therapy Visit Information Visit Information Visit Type Treatment Note Visit Start Time 08:15 Visit Stop Time 09:00 Total Visit Minutes 45 Visit Number 7 Evaluation Information Evaluation Date 03/15/21 PT-OP-B Current Condition Start: 03/15/21 12:52 Freq: Status: Active Protocol: Document 03/29/21 14:31 SAK (Rec: 03/29/21 14:59 SAK [id number]) Current Condition History of Current Condition Onset Date late 2019 Current Complaints RUE and trunk swelling/ lymphedema; decreased RUE ROM History of Current Condition Diagnosed with 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 She consulted with [facility] but was treated more locally. On July 22, 2020, pt underwent R breast lumpectomy and sentinel lymph node biopsy ( six nodes removed, 2 positive for metastasis) at [facility] in [place]. She completed a course of advujant radiation at [facility] on 11/19/20 . She is currently maintained on letrozole to reduce overall estrogen load. Pt reports lymphedema onset late 2019 and was seen by a PT at [facility] earlier this year. Treatment consisted primarily of MLD with good results/ reduction and improved range of motion. She now reports it is difficult for her to sleep on either side. When she sleeps on her left, she feels pulling in the right breast, axilla, and posterior trunk. Sleeping on her right side is too painful. She still has swelling and reports it is better in the morning, worse as the day wears on. She reports less swelling if not wearing a bra but it still gets worse throughout the day. The area becomes more dense and changes color as swelling increases. Prior Treatments and Tests Cancer treatment as noted above and lymphedema PT earlier this year. PT-OP-C Subjective Start: 03/15/21 12:52 Freq: Status: Active Protocol: Document 04/14/21 08:13 SAK (Rec: 04/14/21 08:22 [facility] [id number]) OP-PT Subjective Patient Comments Patient Comments No new c/o. Finding pocket in compression bra helpful for wearing chip bags. Still feeling making progress. PT-OP-F Manual Assessment Start: 03/15/21 12:52 Freq: Status: Active Protocol: Document 03/15/21 16:00 AW (Rec: 03/15/21 17:45 AW [email or web address]) Manual Assessments Soft Tissue Assessment Soft Tissue Mobility Assessment No fibrotic tissue appreciated in RUE. There is density along the surgical incision and swelling noted in axilla, anteriorly on the chest, and posteriorly toward the scapula . PT-OP-K Range of Motion Start: 03/15/21 12:52 Freq: Status: Active Protocol: Document 03/15/21 16:00 AW (Rec: 03/15/21 17:45 AW [id number]) Cervical Spine Range of Motion Cervical Spine Active Comments All cervical ROM WNL including 60 degrees of rotation bilaterally. No unilateral deficit noted. Shoulder Goniometric Range of Motion Shoulder Right Active Testing Position Sitting Flexion 140 Extension 20 Abduction 140 Comments All right shoulder ROM restricted by swelling, pain, surgical scar tissue, quality of irradiated tissue. Distal ROM WNL. Left Active Testing Position Sitting Flexion 160 Extension 35 Abduction 170 Comments Rotation WNL Shoulder ROM Limitations Shoulder ROM Limitations Soft Tissue Tightness,Pain PT-OP-M Strength Start: 03/15/21 12:52 Freq: Status: Active Protocol: Document 03/15/21 16:00 AW (Rec: 03/15/21 17:52 AW [id number]) Shoulder Strength Shoulder Manual Muscle Testing Right Flexion 3+ Fair+ Extension 4- Good- Abduction (C5) 3+ Fair+ External Rotation 4- Good- Internal Rotation 4 Good Comments MMT produces pain in shoulder, proximal trunk. Left Flexion 4+ Good+ Extension 4+ Good+ Abduction (C5) 4+ Good+ External Rotation 4+ Good+ Internal Rotation 4+ Good+ Elbow/Forearm Strength Elbow and Forearm Manual Muscle Testing bilateral Comments R grossly 4+/5 L grossly 4-/5 Hand Manifest/Order Organizer Print Orders/Pinch Strength Hand Dominance Hand Dominance Right Hand Strength Right Comments Not tested with dynamometer, but right 4-/5 and left 4+/5 PT-OP-N Lymphedema Start: 03/15/21 12:52 Freq: Status: Active Protocol: Document 06/24/21 08:13 KIRAN (Rec: 04/14/21 08:22 SAK [id number]) Lymphedema Measurements Comments Lymphedema Comments no measurements taken today due to already measured this week, no significant changes noted. PT-OP-Q Treatments Start: 03/15/21 12:52 Freq: Status: Active Protocol: Document 04/14/21 08:13 SAK (Rec: 04/14/21 08:22 SAK [id number]) Therapeutic Exercises Sidelying Exercises arm circles Sidelying Exercise Name CW and CCW Reps/Minutes 5x ea open book Reps/Minutes 5x Comments deep breathing at end range Sitting Exercises pulleys Sitting Exercise Name flexion, scaption Reps/Minutes 5x ea Comments end range deep breathing into the tight spots Manual Therapy Treatment Soft Tissue Mobilization scar massage Body Location right breast Mobilization Type Instrument Assisted,Myofascial Release,Rolling Intensity/Depth Moderate Body Position Supine PT-OP-T Assessment and Plan Start: 03/15/21 12:52 Freq: Status: Active Protocol: Document 04/14/21 08:13 KIRAN (Rec: 04/14/21 08:22 [facility] [id number]) Physical Therapy Assessment Impairments Impairments Activity Tolerance,Edema, Functional Activities, Functional Mobility,Integument ,Pain,Posture,ROM,Sensation, Soft Tissue Mobility,Strength Goals Four Impairment impaired strength RUE Central Office Trouble Shooter Goal (LTG) Pt will improve RUE strength to 4+/5 globally to promote shoulder stability and ability to participate in yoga activities. LTG Duration 12 weeks - 06/07/21 Three Impairment impaired ROM RUE Short Term Goal (STG) Pt will be independent with HEP aimed at improving RUE ROM to support therapy services provided in clinic. STG Duration 4 weeks - 04/12/21 Half-Way Goal (LTG) Pt will improve RUE flexion and abduction by 10 degrees and extension by 5 degrees to improve her ability to participate in self-care. LTG Duration 12 weeks - 06/07/21 Two Impairment no compression garment Short Term Goal (STG) Patient will be able to teach back regarding benefits and safe use of compression for edema reduction and long-term managemetn STG Duration 4 weeks - 04/12/21 Half-Way Goal (LTG) When stable, patient will be measured and fit for appropriate compression garments. She will be able to don and doff correctly and safely. LTG Duration 12 weeks - 06/07/21 One Impairment function-limiting swelling RUE and trunk Short Term Goal (STG) Pt will be educated in self- MLD and compression wrapping/ compression alternative. STG Duration 4 weeks - 04/12/21 Central Office Trouble Shooter Goal (LTG) Decrease proximal arm and trunk swelling to stable (no change >1 cm over the course of one week) LTG Duration 12 weeks - 06/07/21 Progress Towards Goals Progress Towards Goals Progressing Toward Goals Assessment Summary Assessment shoulder flex to 172. excellent compliance to all aspects of self-care and HEP. firmness inferior /lateral right breast radiation and scar region, neds further work . Physical Therapy Plan Frequency and Duration Frequency of Treatment 20 visits Duration of Treatment 12 weeks Plan of Care Start Date 03/15/21 Plan of Care End Date 06/07/21 Therapeutic Interventions Therapeutic Interventions Home Exercise Program, Lymphedema Management,Manual Therapy,Patient/Caregiver Education,Self-Care/Home Management,Soft Tissue Mobilization,Therapeutic Activities,Therapeutic Exercises Other Therapeutic Interventions edema management Next Visit Focus/Plan Next Note Type Treatment Note Next Visit Plan Continue PT per POC for lymphedema management, progress manual techniques to improve scar mobility and decrease tissue fibrosis.
--- NOTE | 2021-04-19 08:29 | PT.OTN ---
Current Diagnoses Malignant neoplasm of unspecified site of right female breast (04/14/21) Lymphedema, not elsewhere classified (04/14/21) Estrogen receptor positive status [ER+] (04/14/21) Physical Therapy Treatment Note PT-OP-A Visit Information Start: 03/15/21 12:52 Freq: Status: Active Protocol: Document 04/14/21 08:13 SAK (Rec: 04/14/21 08:22 SAK [id number]) Out-Patient Physical Therapy Visit Information Visit Information Visit Type Treatment Note Visit Start Time 08:15 Visit Stop Time 09:00 Total Visit Minutes 45 Visit Number 7 Evaluation Information Evaluation Date 03/15/21 PT-OP-B Current Condition Start: 03/15/21 12:52 Freq: Status: Active Protocol: Document 03/29/21 14:31 SAK (Rec: 03/29/21 14:59 SAK [id number]) Current Condition History of Current Condition Onset Date late 2019 Current Complaints RUE and trunk swelling/ lymphedema; decreased RUE ROM History of Current Condition Diagnosed with 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 She consulted with [facility] but was treated more locally. On July 22, 2020, pt underwent R breast lumpectomy and sentinel lymph node biopsy ( six nodes removed, 2 positive for metastasis) at [facility] in [place]. She completed a course of advujant radiation at [facility] on 11/19/20 . She is currently maintained on letrozole to reduce overall estrogen load. Pt reports lymphedema onset late 2019 and was seen by a PT at [facility] earlier this year. Treatment consisted primarily of MLD with good results/ reduction and improved range of motion. She now reports it is difficult for her to sleep on either side. When she sleeps on her left, she feels pulling in the right breast, axilla, and posterior trunk. Sleeping on her right side is too painful. She still has swelling and reports it is better in the morning, worse as the day wears on. She reports less swelling if not wearing a bra but it still gets worse throughout the day. The area becomes more dense and changes color as swelling increases. Prior Treatments and Tests Cancer treatment as noted above and lymphedema PT earlier this year. PT-OP-C Subjective Start: 03/15/21 12:52 Freq: Status: Active Protocol: Document 04/14/21 08:13 SAK (Rec: 04/14/21 08:22 [facility] [id number]) OP-PT Subjective Patient Comments Patient Comments No new c/o. Finding pocket in compression bra helpful for wearing chip bags. Still feeling making progress. PT-OP-F Manual Assessment Start: 03/15/21 12:52 Freq: Status: Active Protocol: Document 03/15/21 16:00 AW (Rec: 03/15/21 17:45 AW [id number]) Manual Assessments Soft Tissue Assessment Soft Tissue Mobility Assessment No fibrotic tissue appreciated in RUE. There is density along the surgical incision and swelling noted in axilla, anteriorly on the chest, and posteriorly toward the scapula . PT-OP-K Range of Motion Start: 03/15/21 12:52 Freq: Status: Active Protocol: Document 03/15/21 16:00 AW (Rec: 03/15/21 17:45 AW [id number]) Cervical Spine Range of Motion Cervical Spine Active Comments All cervical ROM WNL including 60 degrees of rotation bilaterally. No unilateral deficit noted. Shoulder Goniometric Range of Motion Shoulder Right Active Testing Position Sitting Flexion 140 Extension 20 Abduction 140 Comments All right shoulder ROM restricted by swelling, pain, surgical scar tissue, quality of irradiated tissue. Distal ROM WNL. Left Active Testing Position Sitting Flexion 160 Extension 35 Abduction 170 Comments Rotation WNL Shoulder ROM Limitations Shoulder ROM Limitations Soft Tissue Tightness,Pain PT-OP-M Strength Start: 03/15/21 12:52 Freq: Status: Active Protocol: Document 03/15/21 16:00 AW (Rec: 03/15/21 17:52 AW [id number]) Shoulder Strength Shoulder Manual Muscle Testing Right Flexion 3+ Fair+ Extension 4- Good- Abduction (C5) 3+ Fair+ External Rotation 4- Good- Internal Rotation 4 Good Comments MMT produces pain in shoulder, proximal trunk. Left Flexion 4+ Good+ Extension 4+ Good+ Abduction (C5) 4+ Good+ External Rotation 4+ Good+ Internal Rotation 4+ Good+ Elbow/Forearm Strength Elbow and Forearm Manual Muscle Testing bilateral Comments R grossly 4+/5 L grossly 4-/5 Hand Water Main Installer Helper/Pinch Strength Hand Dominance Hand Dominance Right Hand Strength Right Comments Not tested with dynamometer, but right 4-/5 and left 4+/5 PT-OP-N Lymphedema Start: 03/15/21 12:52 Freq: Status: Active Protocol: Document 06/24/21 08:13 KIRAN (Rec: 04/14/21 08:22 SAK [id number]) Lymphedema Measurements Comments Lymphedema Comments no measurements taken today due to already measured this week, no significant changes noted. PT-OP-Q Treatments Start: 03/15/21 12:52 Freq: Status: Active Protocol: Document 04/14/21 08:13 SAK (Rec: 04/14/21 08:22 SAK [id number]) Therapeutic Exercises Sidelying Exercises arm circles Sidelying Exercise Name CW and CCW Reps/Minutes 5x ea open book Reps/Minutes 5x Comments deep breathing at end range Sitting Exercises pulleys Sitting Exercise Name flexion, scaption Reps/Minutes 5x ea Comments end range deep breathing into the tight spots Manual Therapy Treatment Soft Tissue Mobilization scar massage Body Location right breast Mobilization Type Instrument Assisted,Myofascial Release,Rolling Intensity/Depth Moderate Body Position Supine PT-OP-T Assessment and Plan Start: 03/15/21 12:52 Freq: Status: Active Protocol: Document 04/14/21 08:13 KIRAN (Rec: 04/14/21 08:22 [facility] [id number]) Physical Therapy Assessment Impairments Impairments Activity Tolerance,Edema, Functional Activities, Functional Mobility,Integument ,Pain,Posture,ROM,Sensation, Soft Tissue Mobility,Strength Goals Four Impairment impaired strength RUE Shuttler Car Goal (LTG) Pt will improve RUE strength to 4+/5 globally to promote shoulder stability and ability to participate in yoga activities. LTG Duration 12 weeks - 06/07/21 Three Impairment impaired ROM RUE Short Term Goal (STG) Pt will be independent with HEP aimed at improving RUE ROM to support therapy services provided in clinic. STG Duration 4 weeks - 04/12/21 Half-Way Goal (LTG) Pt will improve RUE flexion and abduction by 10 degrees and extension by 5 degrees to improve her ability to participate in self-care. LTG Duration 12 weeks - 06/07/21 Two Impairment no compression garment Short Term Goal (STG) Patient will be able to teach back regarding benefits and safe use of compression for edema reduction and long-term managemetn STG Duration 4 weeks - 04/12/21 Half-Way Goal (LTG) When stable, patient will be measured and fit for appropriate compression garments. She will be able to don and doff correctly and safely. LTG Duration 12 weeks - 06/07/21 One Impairment function-limiting swelling RUE and trunk Short Term Goal (STG) Pt will be educated in self- MLD and compression wrapping/ compression alternative. STG Duration 4 weeks - 04/12/21 Shuttler Car Goal (LTG) Decrease proximal arm and trunk swelling to stable (no change >1 cm over the course of one week) LTG Duration 12 weeks - 06/07/21 Progress Towards Goals Progress Towards Goals Progressing Toward Goals Assessment Summary Assessment shoulder flex to 172. excellent compliance to all aspects of self-care and HEP. firmness inferior /lateral right breast radiation and scar region, neds further work . Physical Therapy Plan Frequency and Duration Frequency of Treatment 20 visits Duration of Treatment 12 weeks Plan of Care Start Date 03/15/21 Plan of Care End Date 06/07/21 Therapeutic Interventions Therapeutic Interventions Home Exercise Program, Lymphedema Management,Manual Therapy,Patient/Caregiver Education,Self-Care/Home Management,Soft Tissue Mobilization,Therapeutic Activities,Therapeutic Exercises Other Therapeutic Interventions edema management Next Visit Focus/Plan Next Note Type Treatment Note Next Visit Plan Continue PT per POC for lymphedema management, progress manual techniques to improve scar mobility and decrease tissue fibrosis.
--- NOTE | 2021-04-19 12:49 | PT.OTN ---
Current Diagnoses Malignant neoplasm of unspecified site of right female breast (04/19/21) Lymphedema, not elsewhere classified (04/19/21) Estrogen receptor positive status [ER+] (04/19/21) Physical Therapy Treatment Note PT-OP-A Visit Information Start: 03/15/21 12:52 Freq: Status: Active Protocol: Document 04/19/21 11:14 SAK (Rec: 04/19/21 11:34 SAK [id number]) Out-Patient Physical Therapy Visit Information Visit Information Visit Type Treatment Note Visit Start Time 11:15 Visit Stop Time 12:00 Total Visit Minutes 45 Visit Number 8 Evaluation Information Evaluation Date 03/15/21 PT-OP-B Current Condition Start: 03/15/21 12:52 Freq: Status: Active Protocol: Document 03/29/21 14:31 SAK (Rec: 03/29/21 14:59 SAK [id number]) Current Condition History of Current Condition Onset Date late 2019 Current Complaints RUE and trunk swelling/ lymphedema; decreased RUE ROM History of Current Condition Diagnosed with 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 She consulted with [facility] but was treated more locally. On July 22, 2020, pt underwent R breast lumpectomy and sentinel lymph node biopsy ( six nodes removed, 2 positive for metastasis) at [facility] in [place]. She completed a course of advujant radiation at [facility] on 11/19/20 . She is currently maintained on letrozole to reduce overall estrogen load. Pt reports lymphedema onset late 2019 and was seen by a PT at [facility] earlier this year. Treatment consisted primarily of MLD with good results/ reduction and improved range of motion. She now reports it is difficult for her to sleep on either side. When she sleeps on her left, she feels pulling in the right breast, axilla, and posterior trunk. Sleeping on her right side is too painful. She still has swelling and reports it is better in the morning, worse as the day wears on. She reports less swelling if not wearing a bra but it still gets worse throughout the day. The area becomes more dense and changes color as swelling increases. Prior Treatments and Tests Cancer treatment as noted above and lymphedema PT earlier this year. PT-OP-C Subjective Start: 03/15/21 12:52 Freq: Status: Active Protocol: Document 04/19/21 11:14 SAK (Rec: 04/19/21 11:34 [facility] [id number]) OP-PT Subjective Patient Comments Patient Comments Has headache and fatigue from the heat, but improving today. Not as much exercise yesterday due to heat. Was able to lay prone for the first time but not able to tolerate Cobra exercise. PT-OP-F Manual Assessment Start: 03/15/21 12:52 Freq: Status: Active Protocol: Document 03/15/21 16:00 AW (Rec: 03/15/21 17:45 AW [email or web address]) Manual Assessments Soft Tissue Assessment Soft Tissue Mobility Assessment No fibrotic tissue appreciated in RUE. There is density along the surgical incision and swelling noted in axilla, anteriorly on the chest, and posteriorly toward the scapula . PT-OP-K Range of Motion Start: 03/15/21 12:52 Freq: Status: Active Protocol: Document 03/15/21 16:00 AW (Rec: 03/15/21 17:45 AW [id number]) Cervical Spine Range of Motion Cervical Spine Active Comments All cervical ROM WNL including 60 degrees of rotation bilaterally. No unilateral deficit noted. Shoulder Goniometric Range of Motion Shoulder Right Active Testing Position Sitting Flexion 140 Extension 20 Abduction 140 Comments All right shoulder ROM restricted by swelling, pain, surgical scar tissue, quality of irradiated tissue. Distal ROM WNL. Left Active Testing Position Sitting Flexion 160 Extension 35 Abduction 170 Comments Rotation WNL Shoulder ROM Limitations Shoulder ROM Limitations Soft Tissue Tightness,Pain PT-OP-M Strength Start: 03/15/21 12:52 Freq: Status: Active Protocol: Document 03/15/21 16:00 AW (Rec: 03/15/21 17:52 AW [id number]) Shoulder Strength Shoulder Manual Muscle Testing Right Flexion 3+ Fair+ Extension 4- Good- Abduction (C5) 3+ Fair+ External Rotation 4- Good- Internal Rotation 4 Good Comments MMT produces pain in shoulder, proximal trunk. Left Flexion 4+ Good+ Extension 4+ Good+ Abduction (C5) 4+ Good+ External Rotation 4+ Good+ Internal Rotation 4+ Good+ Elbow/Forearm Strength Elbow and Forearm Manual Muscle Testing bilateral Comments R grossly 4+/5 L grossly 4-/5 Hand Pie Maker/Pinch Strength Hand Dominance Hand Dominance Right Hand Strength Right Comments Not tested with dynamometer, but right 4-/5 and left 4+/5 PT-OP-N Lymphedema Start: 03/15/21 12:52 Freq: Status: Active Protocol: Document 04/14/21 08:13 [facility] (Rec: 04/14/21 08:22 [facility] [id number]) Lymphedema Measurements Comments Lymphedema Comments no measurements taken today due to already measured this week, no significant changes noted. PT-OP-Q Treatments Start: 03/15/21 12:52 Freq: Status: Active Protocol: Document 04/19/21 11:14 [facility] (Rec: 04/19/21 11:34 [facility] [id number]) Gym Equipment Cable Column (Body Solid) scapular shrug Details inferior (lower trap facil) Resistance 10 Reps/Time 10x, manual facilitation Therapeutic Exercises Sitting Exercises pulleys Sitting Exercise Name flexion, scaption Reps/Minutes 5x ea Comments end range deep breathing into the tight spots Standing Exercises row Equipment Used L1 TB Reps/Minutes 10x Manual Therapy Treatment Soft Tissue Mobilization scar massage Body Location right breast Mobilization Type Instrument Assisted,Myofascial Release,Rolling Intensity/Depth Moderate Body Position Supine Lymphedema Treatment Manual Lymphatic Drainage Location R breast and subaxillary region Duration 25 min Comments Focused on AAA, NORMA, and AIA, right breast to increase lymphangiomotoricity, promote drainage, fibrosis reduction. Scar mobilization. Lymphedema Wrapping Other compression bra, 2 chip bags; one lateral trunk, one inferior aspect breast. Patient self-dons Sequential Lymphedema Exercises Comments patient continues at home PT-OP-T Assessment and Plan Start: 03/15/21 12:52 Freq: Status: Active Protocol: Document 04/19/21 11:14 [facility] (Rec: 04/19/21 11:34 [facility] [id number]) Physical Therapy Assessment Impairments Impairments Activity Tolerance,Edema, Functional Activities, Functional Mobility,Integument ,Pain,Posture,ROM,Sensation, Soft Tissue Mobility,Strength Goals Four Impairment impaired strength RUE Fci Goal (LTG) Pt will improve RUE strength to 4+/5 globally to promote shoulder stability and ability to participate in yoga activities. LTG Duration 12 weeks - 06/07/21 Three Impairment impaired ROM RUE Short Term Goal (STG) Pt will be independent with HEP aimed at improving RUE ROM to support therapy services provided in clinic. STG Duration 4 weeks - 04/12/21 Urology Surgeon Goal (LTG) Pt will improve RUE flexion and abduction by 10 degrees and extension by 5 degrees to improve her ability to participate in self-care. LTG Duration 12 weeks - 06/07/21 Two Impairment no compression garment Short Term Goal (STG) Patient will be able to teach back regarding benefits and safe use of compression for edema reduction and long-term managemetn STG Duration 4 weeks - 04/12/21 Fci Goal (LTG) When stable, patient will be measured and fit for appropriate compression garments. She will be able to don and doff correctly and safely. LTG Duration 12 weeks - 06/07/21 One Impairment function-limiting swelling RUE and trunk Short Term Goal (STG) Pt will be educated in self- MLD and compression wrapping/ compression alternative. STG Duration 4 weeks - 04/12/21 Urology Surgeon Goal (LTG) Decrease proximal arm and trunk swelling to stable (no change >1 cm over the course of one week) LTG Duration 12 weeks - 06/07/21 Progress Towards Goals Progress Towards Goals Progressing Toward Goals Assessment Summary Assessment Shoulders tight initially, improved with ther ex on pulleys to WNL elevation. Patient circumferential measurements mildly increased most of right UE, decreased subaxillary region and chest. Arm inc may be due to heat as noticing on left side and feet as well. Able to tolerate prone position for a few min with MLD. Physical Therapy Plan Frequency and Duration Frequency of Treatment 20 visits Duration of Treatment 12 weeks Plan of Care Start Date 03/15/21 Plan of Care End Date 06/07/21 Therapeutic Interventions Therapeutic Interventions Home Exercise Program, Lymphedema Management,Manual Therapy,Patient/Caregiver Education,Self-Care/Home Management,Soft Tissue Mobilization,Therapeutic Activities,Therapeutic Exercises Other Therapeutic Interventions edema management Next Visit Focus/Plan Next Note Type Treatment Note Next Visit Plan Continue PT per POC for lymphedema management, progress manual techniques to improve scar mobility and decrease tissue fibrosis. Gentle progression of UE ex for strengthening, monitoring for changes in lymphedema, assure wearing of compression with ex.
--- NOTE | 2021-04-21 14:21 | PT.OTN ---
Current Diagnoses Malignant neoplasm of unspecified site of right female breast (04/21/21) Lymphedema, not elsewhere classified (04/21/21) Estrogen receptor positive status [ER+] (04/21/21) Physical Therapy Treatment Note PT-OP-A Visit Information Start: 03/15/21 12:52 Freq: Status: Active Protocol: Document 04/21/21 11:16 SAK (Rec: 04/21/21 11:30 SAK [id number]) Out-Patient Physical Therapy Visit Information Visit Information Visit Type Treatment Note Visit Start Time 11:15 Visit Stop Time 12:00 Total Visit Minutes 45 Visit Number 9 Evaluation Information Evaluation Date 03/15/21 PT-OP-B Current Condition Start: 03/15/21 12:52 Freq: Status: Active Protocol: Document 03/29/21 14:31 SAK (Rec: 03/29/21 14:59 SAK [id number]) Current Condition History of Current Condition Onset Date late 2019 Current Complaints RUE and trunk swelling/ lymphedema; decreased RUE ROM History of Current Condition Diagnosed with 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 She consulted with [facility] but was treated more locally. On July 22, 2020, pt underwent R breast lumpectomy and sentinel lymph node biopsy ( six nodes removed, 2 positive for metastasis) at [facility] in [place]. She completed a course of advujant radiation at [facility] on 11/19/20 . She is currently maintained on letrozole to reduce overall estrogen load. Pt reports lymphedema onset late 2019 and was seen by a PT at [facility] earlier this year. Treatment consisted primarily of MLD with good results/ reduction and improved range of motion. She now reports it is difficult for her to sleep on either side. When she sleeps on her left, she feels pulling in the right breast, axilla, and posterior trunk. Sleeping on her right side is too painful. She still has swelling and reports it is better in the morning, worse as the day wears on. She reports less swelling if not wearing a bra but it still gets worse throughout the day. The area becomes more dense and changes color as swelling increases. Prior Treatments and Tests Cancer treatment as noted above and lymphedema PT earlier this year. PT-OP-C Subjective Start: 03/15/21 12:52 Freq: Status: Active Protocol: Document 04/21/21 11:16 SAK (Rec: 04/21/21 11:30 [facility] [id number]) OP-PT Subjective Patient Comments Patient Comments No new c/o, I feel I'm continuing to improve PT-OP-F Manual Assessment Start: 03/15/21 12:52 Freq: Status: Active Protocol: Document 03/15/21 16:00 AW (Rec: 03/15/21 17:45 AW [id number]) Manual Assessments Soft Tissue Assessment Soft Tissue Mobility Assessment No fibrotic tissue appreciated in RUE. There is density along the surgical incision and swelling noted in axilla, anteriorly on the chest, and posteriorly toward the scapula . PT-OP-K Range of Motion Start: 03/15/21 12:52 Freq: Status: Active Protocol: Document 03/15/21 16:00 AW (Rec: 03/15/21 17:45 AW [email or web address]) Cervical Spine Range of Motion Cervical Spine Active Comments All cervical ROM WNL including 60 degrees of rotation bilaterally. No unilateral deficit noted. Shoulder Goniometric Range of Motion Shoulder Right Active Testing Position Sitting Flexion 140 Extension 20 Abduction 140 Comments All right shoulder ROM restricted by swelling, pain, surgical scar tissue, quality of irradiated tissue. Distal ROM WNL. Left Active Testing Position Sitting Flexion 160 Extension 35 Abduction 170 Comments Rotation WNL Shoulder ROM Limitations Shoulder ROM Limitations Soft Tissue Tightness,Pain PT-OP-M Strength Start: 03/15/21 12:52 Freq: Status: Active Protocol: Document 03/15/21 16:00 AW (Rec: 03/15/21 17:52 AW [email or web address]) Shoulder Strength Shoulder Manual Muscle Testing Right Flexion 3+ Fair+ Extension 4- Good- Abduction (C5) 3+ Fair+ External Rotation 4- Good- Internal Rotation 4 Good Comments MMT produces pain in shoulder, proximal trunk. Left Flexion 4+ Good+ Extension 4+ Good+ Abduction (C5) 4+ Good+ External Rotation 4+ Good+ Internal Rotation 4+ Good+ Elbow/Forearm Strength Elbow and Forearm Manual Muscle Testing bilateral Comments R grossly 4+/5 L grossly 4-/5 Hand Battery Loader/Pinch Strength Hand Dominance Hand Dominance Right Hand Strength Right Comments Not tested with dynamometer, but right 4-/5 and left 4+/5 PT-OP-N Lymphedema Start: 03/15/21 12:52 Freq: Status: Active Protocol: Document 04/14/21 08:13 SAK (Rec: 04/14/21 08:22 [facility] [id number]) Lymphedema Measurements Comments Lymphedema Comments no measurements taken today due to already measured this week, no significant changes noted. PT-OP-Q Treatments Start: 03/15/21 12:52 Freq: Status: Active Protocol: Document 04/21/21 11:16 [facility] (Rec: 04/21/21 11:30 [facility] [id number]) Gym Equipment Cable Column (Body Solid) scapular shrug Details inferior (lower trap facil) Resistance 10 Reps/Time 10x, manual facilitation Therapeutic Exercises Supine Exercises shoulder flexion Equipment Used foam roll Reps/Minutes 2x30 Sitting Exercises pulleys Sitting Exercise Name flexion, scaption Reps/Minutes 5x ea Comments end range deep breathing into the tight spots Standing Exercises row Equipment Used L1 TB Reps/Minutes 10x Manual Therapy Treatment Soft Tissue Mobilization scar massage Body Location right breast Mobilization Type Instrument Assisted,Myofascial Release,Rolling Intensity/Depth Moderate Body Position Supine Lymphedema Treatment Manual Lymphatic Drainage Location R breast and subaxillary region Duration 25 min Comments Focused on AAA, NORMA, and AIA, right breast to increase lymphangiomotoricity, promote drainage, fibrosis reduction. supine, sidelying, prone Lymphedema Wrapping Other compression bra, 2 chip bags; one lateral trunk, one inferior aspect breast. Patient self-dons Sequential Lymphedema Exercises Comments patient continues at home Compression Garment Assessment Compression Garment Assessment Details Good fit of compression sleeve right. Patient wearing light compression bra, recommend higher compession but at this time patient refuses due to not feeling she could tolerate . Good tolerance for use of suction on scar and was able to tolerate increased stretching through chest supine on foam roller. Continues to improve with soft tissue mobility, softening and improved scar mobility with treatment. PT-OP-T Assessment and Plan Start: 03/15/21 12:52 Freq: Status: Active Protocol: Document 04/21/21 11:16 [facility] (Rec: 04/21/21 11:30 [facility] [id number]) Physical Therapy Assessment Impairments Impairments Activity Tolerance,Edema, Functional Activities, Functional Mobility,Integument ,Pain,Posture,ROM,Sensation, Soft Tissue Mobility,Strength Goals Four Impairment impaired strength RUE Intermediate Goal (LTG) Pt will improve RUE strength to 4+/5 globally to promote shoulder stability and ability to participate in yoga activities. LTG Duration 12 weeks - 06/07/21 Three Impairment impaired ROM RUE Short Term Goal (STG) Pt will be independent with HEP aimed at improving RUE ROM to support therapy services provided in clinic. STG Duration 4 weeks - 04/12/21 Doorperson Goal (LTG) Pt will improve RUE flexion and abduction by 10 degrees and extension by 5 degrees to improve her ability to participate in self-care. LTG Duration 12 weeks - 06/07/21 Two Impairment no compression garment Short Term Goal (STG) Patient will be able to teach back regarding benefits and safe use of compression for edema reduction and long-term managemetn STG Duration 4 weeks - 04/12/21 Intermediate Goal (LTG) When stable, patient will be measured and fit for appropriate compression garments. She will be able to don and doff correctly and safely. LTG Duration 12 weeks - 06/07/21 One Impairment function-limiting swelling RUE and trunk Short Term Goal (STG) Pt will be educated in self- MLD and compression wrapping/ compression alternative. STG Duration 4 weeks - 04/12/21 Doorperson Goal (LTG) Decrease proximal arm and trunk swelling to stable (no change >1 cm over the course of one week) LTG Duration 12 weeks - 06/07/21 Progress Towards Goals Progress Towards Goals Progressing Toward Goals Assessment Summary Assessment Patient instructed in supine foam roller stretching today; she demonstrated good understanding and has foam roller at home. Continues to be highly compliant with HEP, wearing compression sleeve right. Feel swelling and soft tissue tightness right breast would improve more quickly with more compressive bra patient does not feel she would tolerate. She does wear chip bags in the bra consistently. Physical Therapy Plan Frequency and Duration Frequency of Treatment 20 visits Duration of Treatment 12 weeks Plan of Care Start Date 03/15/21 Plan of Care End Date 06/07/21 Therapeutic Interventions Therapeutic Interventions Home Exercise Program, Lymphedema Management,Manual Therapy,Patient/Caregiver Education,Self-Care/Home Management,Soft Tissue Mobilization,Therapeutic Activities,Therapeutic Exercises Other Therapeutic Interventions edema management Next Visit Focus/Plan Next Note Type Progress Note Next Visit Plan Continue PT per POC for lymphedema management, progress manual techniques to improve scar mobility and decrease tissue fibrosis. Gentle progression of UE ex for strengthening, monitoring for changes in lymphedema, assure wearing of compression with ex.
--- NOTE | 2021-04-27 16:23 | PT.OTN ---
Current Diagnoses Malignant neoplasm of unspecified site of right female breast (04/27/21) Lymphedema, not elsewhere classified (04/27/21) Estrogen receptor positive status [ER+] (04/27/21) Physical Therapy Treatment Note PT-OP-A Visit Information Start: 03/15/21 12:52 Freq: Status: Active Protocol: Document 04/27/21 16:05 AW (Rec: 04/27/21 16:22 AW [id number]) Out-Patient Physical Therapy Visit Information Visit Information Visit Type Treatment Note Visit Start Time 15:20 Visit Stop Time 16:05 Total Visit Minutes 45 Visit Number 10 Evaluation Information Evaluation Date 03/15/21 PT-OP-B Current Condition Start: 03/15/21 12:52 Freq: Status: Active Protocol: Document 03/29/21 14:31 SAK (Rec: 03/29/21 14:59 SAK [id number]) Current Condition History of Current Condition Onset Date late 2019 Current Complaints RUE and trunk swelling/ lymphedema; decreased RUE ROM History of Current Condition Diagnosed with 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 She consulted with [facility] but was treated more locally. On July 22, 2020, pt underwent R breast lumpectomy and sentinel lymph node biopsy ( six nodes removed, 2 positive for metastasis) at [facility] in [place]. She completed a course of advujant radiation at [facility] on 11/19/20 . She is currently maintained on letrozole to reduce overall estrogen load. Pt reports lymphedema onset late 2019 and was seen by a PT at [facility] earlier this year. Treatment consisted primarily of MLD with good results/ reduction and improved range of motion. She now reports it is difficult for her to sleep on either side. When she sleeps on her left, she feels pulling in the right breast, axilla, and posterior trunk. Sleeping on her right side is too painful. She still has swelling and reports it is better in the morning, worse as the day wears on. She reports less swelling if not wearing a bra but it still gets worse throughout the day. The area becomes more dense and changes color as swelling increases. Prior Treatments and Tests Cancer treatment as noted above and lymphedema PT earlier this year. PT-OP-C Subjective Start: 03/15/21 12:52 Freq: Status: Active Protocol: Document 04/27/21 16:05 AW (Rec: 04/27/21 16:22 AW [id number]) OP-PT Subjective Patient Comments Patient Comments Everything is easier and I even forget several times per day that I have this limitation. PT-OP-F Manual Assessment Start: 03/15/21 12:52 Freq: Status: Active Protocol: Document 03/15/21 16:00 AW (Rec: 03/15/21 17:45 AW [email or web address]) Manual Assessments Soft Tissue Assessment Soft Tissue Mobility Assessment No fibrotic tissue appreciated in RUE. There is density along the surgical incision and swelling noted in axilla, anteriorly on the chest, and posteriorly toward the scapula . PT-OP-K Range of Motion Start: 03/15/21 12:52 Freq: Status: Active Protocol: Document 03/15/21 16:00 AW (Rec: 03/15/21 17:45 AW [email or web address]) Cervical Spine Range of Motion Cervical Spine Active Comments All cervical ROM WNL including 60 degrees of rotation bilaterally. No unilateral deficit noted. Shoulder Goniometric Range of Motion Shoulder Right Active Testing Position Sitting Flexion 140 Extension 20 Abduction 140 Comments All right shoulder ROM restricted by swelling, pain, surgical scar tissue, quality of irradiated tissue. Distal ROM WNL. Left Active Testing Position Sitting Flexion 160 Extension 35 Abduction 170 Comments Rotation WNL Shoulder ROM Limitations Shoulder ROM Limitations Soft Tissue Tightness,Pain PT-OP-M Strength Start: 03/15/21 12:52 Freq: Status: Active Protocol: Document 03/15/21 16:00 AW (Rec: 03/15/21 17:52 AW [email or web address]) Shoulder Strength Shoulder Manual Muscle Testing Right Flexion 3+ Fair+ Extension 4- Good- Abduction (C5) 3+ Fair+ External Rotation 4- Good- Internal Rotation 4 Good Comments MMT produces pain in shoulder, proximal trunk. Left Flexion 4+ Good+ Extension 4+ Good+ Abduction (C5) 4+ Good+ External Rotation 4+ Good+ Internal Rotation 4+ Good+ Elbow/Forearm Strength Elbow and Forearm Manual Muscle Testing bilateral Comments R grossly 4+/5 L grossly 4-/5 Hand Audio Video Repairer/Pinch Strength Hand Dominance Hand Dominance Right Hand Strength Right Comments Not tested with dynamometer, but right 4-/5 and left 4+/5 PT-OP-N Lymphedema Start: 03/15/21 12:52 Freq: Status: Active Protocol: Document 04/14/21 08:13 SAK (Rec: 04/14/21 08:22 SAK [id number]) Lymphedema Measurements Upper Extremity Circumference Measurements Right Affected MCP 18.7 cm Dorsum of Hand 18.7 cm Wrist 16.2 cm 10 cm From Wrist Crease 19.9 cm 20 cm From Wrist Crease 23.8 cm 30 cm From Wrist Crease 26.1 cm 40 cm From Wrist Crease 28.3 cm Elbow Joint 24.5 cm Comments Lymphedema Comments no measurements taken today due to already measured this week, no significant changes noted. PT-OP-Q Treatments Start: 03/15/21 12:52 Freq: Status: Active Protocol: Document 04/27/21 16:05 AW (Rec: 04/27/21 16:22 AW [id number]) Gym Equipment Cable Column (Body Solid) scapular shrug Details inferior (lower trap facil) Resistance 10 Reps/Time 10x, manual facilitation Therapeutic Exercises Supine Exercises shoulder flexion Equipment Used foam roll Reps/Minutes 2x30 Sitting Exercises pulleys Sitting Exercise Name flexion, scaption Reps/Minutes 5x ea Comments end range deep breathing into the tight spots Manual Therapy Treatment Soft Tissue Mobilization scar massage Body Location right breast Mobilization Type Instrument Assisted,Myofascial Release,Rolling Intensity/Depth Moderate Body Position Supine Lymphedema Treatment Manual Lymphatic Drainage Location R breast and subaxillary region Duration 25 min Comments Focused on AAA, NORMA, and AIA, right breast to increase lymphangiomotoricity, promote drainage, fibrosis reduction. supine, sidelying Lymphedema Wrapping Other compression bra, 2 chip bags; one lateral trunk, one inferior aspect breast. Patient self-dons Sequential Lymphedema Exercises Comments patient continues at home PT-OP-T Assessment and Plan Start: 03/15/21 12:52 Freq: Status: Active Protocol: Document 04/27/21 16:05 AW (Rec: 04/27/21 16:22 AW [id number]) Physical Therapy Assessment Impairments Impairments Activity Tolerance,Edema, Functional Activities, Functional Mobility,Integument ,Pain,Posture,ROM,Sensation, Soft Tissue Mobility,Strength Goals Four Impairment impaired strength RUE Custodial Goal (LTG) Pt will improve RUE strength to 4+/5 globally to promote shoulder stability and ability to participate in yoga activities. LTG Duration 12 weeks - 06/07/21 Three Impairment impaired ROM RUE Short Term Goal (STG) Pt will be independent with HEP aimed at improving RUE ROM to support therapy services provided in clinic. 04/27/21 MET Pt is highly compliant STG Duration 4 weeks - 04/12/21 Fence Builder Goal (LTG) Pt will improve RUE flexion and abduction by 10 degrees and extension by 5 degrees to improve her ability to participate in self-care. LTG Duration 12 weeks - 06/07/21 Two Impairment no compression garment Short Term Goal (STG) Patient will be able to teach back regarding benefits and safe use of compression for edema reduction and long-term management. 04/27/21 - Pt is well-versed in benefits of long-term compression. She is now wearing a sleeve and a bra with lower than recommended compression but pt does not feel she could tolerate higher level. STG Duration 4 weeks - 04/12/21 Custodial Goal (LTG) When stable, patient will be measured and fit for appropriate compression garments. She will be able to don and doff correctly and safely. LTG Duration 12 weeks - 06/07/21 One Impairment function-limiting swelling RUE and trunk Short Term Goal (STG) Pt will be educated in self- MLD and compression wrapping/ compression alternative. 04/27/21 Pt demonstrates excellent buy-in and has been performing self MLD independently. STG Duration 4 weeks - 04/12/21 Custodial Goal (LTG) Decrease proximal arm and trunk swelling to stable (no change >1 cm over the course of one week) LTG Duration 12 weeks - 06/07/21 Progress Towards Goals Progress Towards Goals Progressing Toward Goals Progress Comments Pt has shown excellent effort and commitment with exercise progression, self-MLD, and use of compression garments. Measurements continue to decrease but are not yet stable. Assessment Summary Assessment Circumferential measurements globally reduced today. Pt has significantly reduced guarding R UE and is moving with more confidence. She has resumed modified yoga practice . She continues to wear light compression bra with chip bags and R UE sleeve. Physical Therapy Plan Frequency and Duration Frequency of Treatment 20 visits Duration of Treatment 12 weeks Plan of Care Start Date 03/15/21 Plan of Care End Date 06/07/21 Therapeutic Interventions Therapeutic Interventions Home Exercise Program, Lymphedema Management,Manual Therapy,Patient/Caregiver Education,Self-Care/Home Management,Soft Tissue Mobilization,Therapeutic Activities,Therapeutic Exercises Other Therapeutic Interventions edema management Next Visit Focus/Plan Next Note Type Treatment Note Next Visit Plan Continue PT per POC for lymphedema management, progress manual techniques to improve scar mobility and decrease tissue fibrosis. Gentle progression of UE ex for strengthening, monitoring for changes in lymphedema, assure wearing of compression with ex.
--- NOTE | 2021-04-27 17:09 | PT.OTN ---
Current Diagnoses Malignant neoplasm of unspecified site of right female breast (04/27/21) Lymphedema, not elsewhere classified (04/27/21) Estrogen receptor positive status [ER+] (04/27/21) Physical Therapy Treatment Note PT-OP-A Visit Information Start: 03/15/21 12:52 Freq: Status: Active Protocol: Document 04/27/21 16:05 AW (Rec: 04/27/21 16:22 AW [id number]) Out-Patient Physical Therapy Visit Information Visit Information Visit Type Treatment Note Visit Start Time 15:20 Visit Stop Time 16:05 Total Visit Minutes 45 Visit Number 10 Evaluation Information Evaluation Date 03/15/21 PT-OP-B Current Condition Start: 03/15/21 12:52 Freq: Status: Active Protocol: Document 03/29/21 14:31 SAK (Rec: 03/29/21 14:59 SAK [id number]) Current Condition History of Current Condition Onset Date late 2019 Current Complaints RUE and trunk swelling/ lymphedema; decreased RUE ROM History of Current Condition Diagnosed with 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 She consulted with [facility] but was treated more locally. On July 22, 2020, pt underwent R breast lumpectomy and sentinel lymph node biopsy ( six nodes removed, 2 positive for metastasis) at [facility] in [place]. She completed a course of advujant radiation at [facility] on 11/19/20 . She is currently maintained on letrozole to reduce overall estrogen load. Pt reports lymphedema onset late 2019 and was seen by a PT at [facility] earlier this year. Treatment consisted primarily of MLD with good results/ reduction and improved range of motion. She now reports it is difficult for her to sleep on either side. When she sleeps on her left, she feels pulling in the right breast, axilla, and posterior trunk. Sleeping on her right side is too painful. She still has swelling and reports it is better in the morning, worse as the day wears on. She reports less swelling if not wearing a bra but it still gets worse throughout the day. The area becomes more dense and changes color as swelling increases. Prior Treatments and Tests Cancer treatment as noted above and lymphedema PT earlier this year. PT-OP-C Subjective Start: 03/15/21 12:52 Freq: Status: Active Protocol: Document 04/27/21 16:05 AW (Rec: 04/27/21 16:22 AW [id number]) OP-PT Subjective Patient Comments Patient Comments Everything is easier and I even forget several times per day that I have this limitation. PT-OP-F Manual Assessment Start: 03/15/21 12:52 Freq: Status: Active Protocol: Document 03/15/21 16:00 AW (Rec: 03/15/21 17:45 AW [email or web address]) Manual Assessments Soft Tissue Assessment Soft Tissue Mobility Assessment No fibrotic tissue appreciated in RUE. There is density along the surgical incision and swelling noted in axilla, anteriorly on the chest, and posteriorly toward the scapula . PT-OP-K Range of Motion Start: 03/15/21 12:52 Freq: Status: Active Protocol: Document 03/15/21 16:00 AW (Rec: 03/15/21 17:45 AW [email or web address]) Cervical Spine Range of Motion Cervical Spine Active Comments All cervical ROM WNL including 60 degrees of rotation bilaterally. No unilateral deficit noted. Shoulder Goniometric Range of Motion Shoulder Right Active Testing Position Sitting Flexion 140 Extension 20 Abduction 140 Comments All right shoulder ROM restricted by swelling, pain, surgical scar tissue, quality of irradiated tissue. Distal ROM WNL. Left Active Testing Position Sitting Flexion 160 Extension 35 Abduction 170 Comments Rotation WNL Shoulder ROM Limitations Shoulder ROM Limitations Soft Tissue Tightness,Pain PT-OP-M Strength Start: 03/15/21 12:52 Freq: Status: Active Protocol: Document 03/15/21 16:00 AW (Rec: 03/15/21 17:52 AW [email or web address]) Shoulder Strength Shoulder Manual Muscle Testing Right Flexion 3+ Fair+ Extension 4- Good- Abduction (C5) 3+ Fair+ External Rotation 4- Good- Internal Rotation 4 Good Comments MMT produces pain in shoulder, proximal trunk. Left Flexion 4+ Good+ Extension 4+ Good+ Abduction (C5) 4+ Good+ External Rotation 4+ Good+ Internal Rotation 4+ Good+ Elbow/Forearm Strength Elbow and Forearm Manual Muscle Testing bilateral Comments R grossly 4+/5 L grossly 4-/5 Hand Nuclear Radiologist/Pinch Strength Hand Dominance Hand Dominance Right Hand Strength Right Comments Not tested with dynamometer, but right 4-/5 and left 4+/5 PT-OP-N Lymphedema Start: 03/15/21 12:52 Freq: Status: Active Protocol: Document 04/27/21 16:05 AW (Rec: 04/27/21 17:09 AW [email or web address]) Lymphedema Measurements Upper Extremity Circumference Measurements Right Affected MCP 18 cm Dorsum of Hand 18.4 cm Wrist 16 cm 10 cm From Wrist Crease 18.8 cm 20 cm From Wrist Crease 23.3 cm 30 cm From Wrist Crease 25.9 cm 40 cm From Wrist Crease 28 cm Elbow Joint 24.6 cm - chest at axilla 88.6 cm Comments Lymphedema Comments Globally reduced measurements this date PT-OP-Q Treatments Start: 03/15/21 12:52 Freq: Status: Active Protocol: Document 04/27/21 16:05 AW (Rec: 04/27/21 16:22 AW [id number]) Gym Equipment Cable Column (Body Solid) scapular shrug Details inferior (lower trap facil) Resistance 10 Reps/Time 10x, manual facilitation Therapeutic Exercises Supine Exercises shoulder flexion Equipment Used foam roll Reps/Minutes 2x30 Sitting Exercises pulleys Sitting Exercise Name flexion, scaption Reps/Minutes 5x ea Comments end range deep breathing into the tight spots Manual Therapy Treatment Soft Tissue Mobilization scar massage Body Location right breast Mobilization Type Instrument Assisted,Myofascial Release,Rolling Intensity/Depth Moderate Body Position Supine Lymphedema Treatment Manual Lymphatic Drainage Location R breast and subaxillary region Duration 25 min Comments Focused on AAA, NORMA, and AIA, right breast to increase lymphangiomotoricity, promote drainage, fibrosis reduction. supine, sidelying Lymphedema Wrapping Other compression bra, 2 chip bags; one lateral trunk, one inferior aspect breast. Patient self-dons Sequential Lymphedema Exercises Comments patient continues at home PT-OP-T Assessment and Plan Start: 03/15/21 12:52 Freq: Status: Active Protocol: Document 04/27/21 16:05 AW (Rec: 04/27/21 16:22 AW [id number]) Physical Therapy Assessment Impairments Impairments Activity Tolerance,Edema, Functional Activities, Functional Mobility,Integument ,Pain,Posture,ROM,Sensation, Soft Tissue Mobility,Strength Goals Four Impairment impaired strength RUE Electric Motor And Generator Assembler Goal (LTG) Pt will improve RUE strength to 4+/5 globally to promote shoulder stability and ability to participate in yoga activities. LTG Duration 12 weeks - 06/07/21 Three Impairment impaired ROM RUE Short Term Goal (STG) Pt will be independent with HEP aimed at improving RUE ROM to support therapy services provided in clinic. 04/27/21 MET Pt is highly compliant STG Duration 4 weeks - 04/12/21 [facility] Goal (LTG) Pt will improve RUE flexion and abduction by 10 degrees and extension by 5 degrees to improve her ability to participate in self-care. LTG Duration 12 weeks - 06/07/21 Two Impairment no compression garment Short Term Goal (STG) Patient will be able to teach back regarding benefits and safe use of compression for edema reduction and long-term management. 04/27/21 - Pt is well-versed in benefits of long-term compression. She is now wearing a sleeve and a bra with lower than recommended compression but pt does not feel she could tolerate higher level. STG Duration 4 weeks - 04/12/21 [facility] Goal (LTG) When stable, patient will be measured and fit for appropriate compression garments. She will be able to don and doff correctly and safely. LTG Duration 12 weeks - 06/07/21 One Impairment function-limiting swelling RUE and trunk Short Term Goal (STG) Pt will be educated in self- MLD and compression wrapping/ compression alternative. 04/27/21 Pt demonstrates excellent buy-in and has been performing self MLD independently. STG Duration 4 weeks - 04/12/21 Electric Motor And Generator Assembler Goal (LTG) Decrease proximal arm and trunk swelling to stable (no change >1 cm over the course of one week) LTG Duration 12 weeks - 06/07/21 Progress Towards Goals Progress Towards Goals Progressing Toward Goals Progress Comments Pt has shown excellent effort and commitment with exercise progression, self-MLD, and use of compression garments. Measurements continue to decrease but are not yet stable. Assessment Summary Assessment Circumferential measurements globally reduced today. Pt has significantly reduced guarding R UE and is moving with more confidence. She has resumed modified yoga practice . She continues to wear light compression bra with chip bags and R UE sleeve. Physical Therapy Plan Frequency and Duration Frequency of Treatment 20 visits Duration of Treatment 12 weeks Plan of Care Start Date 03/15/21 Plan of Care End Date 06/07/21 Therapeutic Interventions Therapeutic Interventions Home Exercise Program, Lymphedema Management,Manual Therapy,Patient/Caregiver Education,Self-Care/Home Management,Soft Tissue Mobilization,Therapeutic Activities,Therapeutic Exercises Other Therapeutic Interventions edema management Next Visit Focus/Plan Next Note Type Treatment Note Next Visit Plan Continue PT per POC for lymphedema management, progress manual techniques to improve scar mobility and decrease tissue fibrosis. Gentle progression of UE ex for strengthening, monitoring for changes in lymphedema, assure wearing of compression with ex.
--- NOTE | 2021-05-03 12:08 | PT.OTN ---
Current Diagnoses Malignant neoplasm of unspecified site of right female breast (05/03/21) Lymphedema, not elsewhere classified (05/03/21) Estrogen receptor positive status [ER+] (05/03/21) Physical Therapy Treatment Note PT-OP-A Visit Information Start: 03/15/21 12:52 Freq: Status: Active Protocol: Document 05/03/21 10:36 SAK (Rec: 05/03/21 10:58 SAK [id number]) Out-Patient Physical Therapy Visit Information Visit Information Visit Type Treatment Note Visit Start Time 10:32 Visit Stop Time 11:40 Total Visit Minutes 68 Visit Number 11 Evaluation Information Evaluation Date 03/15/21 PT-OP-B Current Condition Start: 03/15/21 12:52 Freq: Status: Active Protocol: Document 03/29/21 14:31 SAK (Rec: 03/29/21 14:59 SAK [id number]) Current Condition History of Current Condition Onset Date late 2019 Current Complaints RUE and trunk swelling/ lymphedema; decreased RUE ROM History of Current Condition Diagnosed with 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 She consulted with [facility] but was treated more locally. On July 22, 2020, pt underwent R breast lumpectomy and sentinel lymph node biopsy ( six nodes removed, 2 positive for metastasis) at [facility] in [place]. She completed a course of advujant radiation at [facility] on 11/19/20 . She is currently maintained on letrozole to reduce overall estrogen load. Pt reports lymphedema onset late 2019 and was seen by a PT at [facility] earlier this year. Treatment consisted primarily of MLD with good results/ reduction and improved range of motion. She now reports it is difficult for her to sleep on either side. When she sleeps on her left, she feels pulling in the right breast, axilla, and posterior trunk. Sleeping on her right side is too painful. She still has swelling and reports it is better in the morning, worse as the day wears on. She reports less swelling if not wearing a bra but it still gets worse throughout the day. The area becomes more dense and changes color as swelling increases. Prior Treatments and Tests Cancer treatment as noted above and lymphedema PT earlier this year. PT-OP-C Subjective Start: 03/15/21 12:52 Freq: Status: Active Protocol: Document 05/03/21 10:36 SAK (Rec: 05/03/21 10:58 [facility] [id number]) OP-PT Subjective Patient Comments Patient Comments Still getting better every day , exhausted and a little tight today, has had company so not quite as much time for exercise and self-care. PT-OP-F Manual Assessment Start: 03/15/21 12:52 Freq: Status: Active Protocol: Document 03/15/21 16:00 AW (Rec: 03/15/21 17:45 AW [email or web address]) Manual Assessments Soft Tissue Assessment Soft Tissue Mobility Assessment No fibrotic tissue appreciated in RUE. There is density along the surgical incision and swelling noted in axilla, anteriorly on the chest, and posteriorly toward the scapula . PT-OP-K Range of Motion Start: 03/15/21 12:52 Freq: Status: Active Protocol: Document 03/15/21 16:00 AW (Rec: 03/15/21 17:45 AW [id number]) Cervical Spine Range of Motion Cervical Spine Active Comments All cervical ROM WNL including 60 degrees of rotation bilaterally. No unilateral deficit noted. Shoulder Goniometric Range of Motion Shoulder Right Active Testing Position Sitting Flexion 140 Extension 20 Abduction 140 Comments All right shoulder ROM restricted by swelling, pain, surgical scar tissue, quality of irradiated tissue. Distal ROM WNL. Left Active Testing Position Sitting Flexion 160 Extension 35 Abduction 170 Comments Rotation WNL Shoulder ROM Limitations Shoulder ROM Limitations Soft Tissue Tightness,Pain PT-OP-M Strength Start: 03/15/21 12:52 Freq: Status: Active Protocol: Document 03/15/21 16:00 AW (Rec: 03/15/21 17:52 AW [email or web address]) Shoulder Strength Shoulder Manual Muscle Testing Right Flexion 3+ Fair+ Extension 4- Good- Abduction (C5) 3+ Fair+ External Rotation 4- Good- Internal Rotation 4 Good Comments MMT produces pain in shoulder, proximal trunk. Left Flexion 4+ Good+ Extension 4+ Good+ Abduction (C5) 4+ Good+ External Rotation 4+ Good+ Internal Rotation 4+ Good+ Elbow/Forearm Strength Elbow and Forearm Manual Muscle Testing bilateral Comments R grossly 4+/5 L grossly 4-/5 Hand Pipe Organ Mechanic/Pinch Strength Hand Dominance Hand Dominance Right Hand Strength Right Comments Not tested with dynamometer, but right 4-/5 and left 4+/5 PT-OP-N Lymphedema Start: 03/15/21 12:52 Freq: Status: Active Protocol: Document 05/03/21 10:36 KIRAN (Rec: 05/03/21 12:08 [facility] [id number]) Lymphedema Measurements Upper Extremity Circumference Measurements Right Affected MCP 18.2 cm Dorsum of Hand 18.3 cm Wrist 16 cm 10 cm From Wrist Crease 19.2 cm 20 cm From Wrist Crease 23.6 cm 30 cm From Wrist Crease 26.6 cm 40 cm From Wrist Crease 28.2 cm Elbow Joint 23.6 cm - chest at axilla 89.0 - chest (nipple line) 97.1 PT-OP-Q Treatments Start: 03/15/21 12:52 Freq: Status: Active Protocol: Document 05/03/21 10:36 KIRAN (Rec: 05/03/21 10:58 [facility] [id number]) Gym Equipment Cable Column (Body Solid) scapular shrug Details inferior (lower trap facil) Resistance 12.5 Reps/Time 10x2, manual facilitation Therapeutic Exercises Supine Exercises horizontal abduct Equipment Used foam roll Reps/Minutes 10x2, 1x30 Comments end range stretch after 10th rep shoulder flexion Equipment Used foam roll Reps/Minutes 10x2, 1x30 Comments end range stretch after 10th rep Sitting Exercises pulleys Sitting Exercise Name flexion, scaption Reps/Minutes 10x ea Comments end range deep breathing into the tight spots Manual Therapy Treatment Soft Tissue Mobilization scar massage Body Location right breast Mobilization Type Myofascial Release,Rolling Intensity/Depth Moderate Body Position Supine Lymphedema Treatment Manual Lymphatic Drainage Location R breast and subaxillary region Duration 25 min Comments Focused on AAA, NORMA, and AIA, right breast to increase lymphangiomotoricity, promote drainage, fibrosis reduction. supine, sidelying Lymphedema Wrapping Other compression bra, 2 chip bags; one lateral trunk, one inferior aspect breast. Patient self-dons Sequential Lymphedema Exercises Comments patient continues at home PT-OP-T Assessment and Plan Start: 03/15/21 12:52 Freq: Status: Active Protocol: Document 05/03/21 10:36 KIRAN (Rec: 05/03/21 10:58 [facility] [id number]) Physical Therapy Assessment Impairments Impairments Activity Tolerance,Edema, Functional Activities, Functional Mobility,Integument ,Pain,Posture,ROM,Sensation, Soft Tissue Mobility,Strength Goals Four Impairment impaired strength RUE Alf Goal (LTG) Pt will improve RUE strength to 4+/5 globally to promote shoulder stability and ability to participate in yoga activities. LTG Duration 12 weeks - 06/07/21 Three Impairment impaired ROM RUE Short Term Goal (STG) Pt will be independent with HEP aimed at improving RUE ROM to support therapy services provided in clinic. 04/27/21 MET Pt is highly compliant STG Duration 4 weeks - 04/12/21 Retail Service Specialist Goal (LTG) Pt will improve RUE flexion and abduction by 10 degrees and extension by 5 degrees to improve her ability to participate in self-care. LTG Duration 12 weeks - 06/07/21 Two Impairment no compression garment Short Term Goal (STG) Patient will be able to teach back regarding benefits and safe use of compression for edema reduction and long-term management. 04/27/21 - Pt is well-versed in benefits of long-term compression. She is now wearing a sleeve and a bra with lower than recommended compression but pt does not feel she could tolerate higher level. STG Duration 4 weeks - 04/12/21 Retail Service Specialist Goal (LTG) When stable, patient will be measured and fit for appropriate compression garments. She will be able to don and doff correctly and safely. LTG Duration 12 weeks - 06/07/21 One Impairment function-limiting swelling RUE and trunk Short Term Goal (STG) Pt will be educated in self- MLD and compression wrapping/ compression alternative. 04/27/21 Pt demonstrates excellent buy-in and has been performing self MLD independently. STG Duration 4 weeks - 04/12/21 Retail Service Specialist Goal (LTG) Decrease proximal arm and trunk swelling to stable (no change >1 cm over the course of one week) LTG Duration 12 weeks - 06/07/21 Progress Towards Goals Progress Towards Goals Progressing Toward Goals Progress Comments Measurements continue to decrease, not yet stable. good progress Assessment Summary Assessment Measurements mostly reduced today again, decreased tenderness lateral breast, fibrosis decreasing but needs further work. Physical Therapy Plan Frequency and Duration Frequency of Treatment 20 visits Duration of Treatment 12 weeks Plan of Care Start Date 03/15/21 Plan of Care End Date 06/07/21 Therapeutic Interventions Therapeutic Interventions Home Exercise Program, Lymphedema Management,Manual Therapy,Patient/Caregiver Education,Self-Care/Home Management,Soft Tissue Mobilization,Therapeutic Activities,Therapeutic Exercises Next Visit Focus/Plan Next Note Type Treatment Note Next Visit Plan Continue PT per POC for lymphedema management, progress manual techniques to improve scar mobility and decrease tissue fibrosis. Gentle progression of UE ex for strengthening, monitoring for changes in lymphedema, assure wearing of compression with ex.
--- NOTE | 2021-05-05 11:54 | PT.OTN ---
Current Diagnoses Malignant neoplasm of unspecified site of right female breast (05/05/21) Lymphedema, not elsewhere classified (05/05/21) Estrogen receptor positive status [ER+] (05/05/21) Physical Therapy Treatment Note PT-OP-A Visit Information Start: 03/15/21 12:52 Freq: Status: Active Protocol: Document 05/05/21 10:33 SAK (Rec: 05/05/21 10:54 SAK [id number]) Out-Patient Physical Therapy Visit Information Visit Information Visit Type Treatment Note Visit Start Time 10:32 Visit Stop Time 11:41 Total Visit Minutes 69 Visit Number 12 Evaluation Information Evaluation Date 03/15/21 PT-OP-B Current Condition Start: 03/15/21 12:52 Freq: Status: Active Protocol: Document 03/29/21 14:31 SAK (Rec: 03/29/21 14:59 SAK [id number]) Current Condition History of Current Condition Onset Date late 2019 Current Complaints RUE and trunk swelling/ lymphedema; decreased RUE ROM History of Current Condition Diagnosed with 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 She consulted with [facility] but was treated more locally. On July 22, 2020, pt underwent R breast lumpectomy and sentinel lymph node biopsy ( six nodes removed, 2 positive for metastasis) at [facility] in [place]. She completed a course of advujant radiation at [facility] on 11/19/20 . She is currently maintained on letrozole to reduce overall estrogen load. Pt reports lymphedema onset late 2019 and was seen by a PT at [facility] earlier this year. Treatment consisted primarily of MLD with good results/ reduction and improved range of motion. She now reports it is difficult for her to sleep on either side. When she sleeps on her left, she feels pulling in the right breast, axilla, and posterior trunk. Sleeping on her right side is too painful. She still has swelling and reports it is better in the morning, worse as the day wears on. She reports less swelling if not wearing a bra but it still gets worse throughout the day. The area becomes more dense and changes color as swelling increases. Prior Treatments and Tests Cancer treatment as noted above and lymphedema PT earlier this year. PT-OP-C Subjective Start: 03/15/21 12:52 Freq: Status: Active Protocol: Document 05/05/21 10:33 SAK (Rec: 05/05/21 10:54 [facility] [id number]) OP-PT Subjective Patient Comments Patient Comments No new c/o. States she can now sleep on her right side for awhile, not a long time due to tenderness, but improved. I feel I am getting better every day with your help. PT-OP-F Manual Assessment Start: 03/15/21 12:52 Freq: Status: Active Protocol: Document 03/15/21 16:00 AW (Rec: 03/15/21 17:45 AW [id number]) Manual Assessments Soft Tissue Assessment Soft Tissue Mobility Assessment No fibrotic tissue appreciated in RUE. There is density along the surgical incision and swelling noted in axilla, anteriorly on the chest, and posteriorly toward the scapula . PT-OP-K Range of Motion Start: 03/15/21 12:52 Freq: Status: Active Protocol: Document 03/15/21 16:00 AW (Rec: 03/15/21 17:45 AW [id number]) Cervical Spine Range of Motion Cervical Spine Active Comments All cervical ROM WNL including 60 degrees of rotation bilaterally. No unilateral deficit noted. Shoulder Goniometric Range of Motion Shoulder Right Active Testing Position Sitting Flexion 140 Extension 20 Abduction 140 Comments All right shoulder ROM restricted by swelling, pain, surgical scar tissue, quality of irradiated tissue. Distal ROM WNL. Left Active Testing Position Sitting Flexion 160 Extension 35 Abduction 170 Comments Rotation WNL Shoulder ROM Limitations Shoulder ROM Limitations Soft Tissue Tightness,Pain PT-OP-M Strength Start: 03/15/21 12:52 Freq: Status: Active Protocol: Document 03/15/21 16:00 AW (Rec: 03/15/21 17:52 AW [id number]) Shoulder Strength Shoulder Manual Muscle Testing Right Flexion 3+ Fair+ Extension 4- Good- Abduction (C5) 3+ Fair+ External Rotation 4- Good- Internal Rotation 4 Good Comments MMT produces pain in shoulder, proximal trunk. Left Flexion 4+ Good+ Extension 4+ Good+ Abduction (C5) 4+ Good+ External Rotation 4+ Good+ Internal Rotation 4+ Good+ Elbow/Forearm Strength Elbow and Forearm Manual Muscle Testing bilateral Comments R grossly 4+/5 L grossly 4-/5 Hand Pharmacy Informatics Manager/Pinch Strength Hand Dominance Hand Dominance Right Hand Strength Right Comments Not tested with dynamometer, but right 4-/5 and left 4+/5 PT-OP-N Lymphedema Start: 03/15/21 12:52 Freq: Status: Active Protocol: Document 05/03/21 10:36 SAK (Rec: 05/03/21 12:08 [facility] [id number]) Lymphedema Measurements Upper Extremity Circumference Measurements Right Affected MCP 18.2 cm Dorsum of Hand 18.3 cm Wrist 16 cm 10 cm From Wrist Crease 19.2 cm 20 cm From Wrist Crease 23.6 cm 30 cm From Wrist Crease 26.6 cm 40 cm From Wrist Crease 28.2 cm Elbow Joint 23.6 cm - chest at axilla 89.0 - chest (nipple line) 97.1 PT-OP-Q Treatments Start: 03/15/21 12:52 Freq: Status: Active Protocol: Document 05/05/21 10:33 KIRAN (Rec: 05/05/21 10:54 [facility] [id number]) Gym Equipment Cable Column (Body Solid) lat pull Resistance 15 Reps/Time 10x2 scapular shrug Details inferior (lower trap facil) Resistance 15 Reps/Time 10x2, manual facilitation Therapeutic Exercises Supine Exercises horizontal abduct Equipment Used foam roll Reps/Minutes 10x2, 1x30 Comments end range stretch after 10th rep shoulder flexion Equipment Used foam roll Reps/Minutes 10x2, 1x30 Comments end range stretch after 10th rep Sitting Exercises pulleys Sitting Exercise Name flexion, scaption Reps/Minutes 10x ea Comments end range deep breathing into the tight spots Standing Exercises row Comments HEP wall slide Comments HEP Manual Therapy Treatment Soft Tissue Mobilization scar massage Body Location right breast Mobilization Type Instrument Assisted,Myofascial Release,Rolling Intensity/Depth Moderate Body Position Supine Comments suction Graston tool Lymphedema Treatment Manual Lymphatic Drainage Location R breast and subaxillary region Duration 25 min Comments Focused on AAA, NORMA, and AIA, right breast to increase lymphangiomotoricity, promote drainage, fibrosis reduction. supine, sidelying Lymphedema Wrapping Other compression bra, 2 chip bags; one lateral trunk, one inferior aspect breast. Patient self-dons Sequential Lymphedema Exercises Comments patient continues at home PT-OP-T Assessment and Plan Start: 03/15/21 12:52 Freq: Status: Active Protocol: Document 05/05/21 10:33 KIRAN (Rec: 05/05/21 10:54 [facility] [id number]) Physical Therapy Assessment Impairments Impairments Activity Tolerance,Edema, Functional Activities, Functional Mobility,Integument ,Pain,Posture,ROM,Sensation, Soft Tissue Mobility,Strength Goals Four Impairment impaired strength RUE Jail Goal (LTG) Pt will improve RUE strength to 4+/5 globally to promote shoulder stability and ability to participate in yoga activities. LTG Duration 12 weeks - 06/07/21 Three Impairment impaired ROM RUE Short Term Goal (STG) Pt will be independent with HEP aimed at improving RUE ROM to support therapy services provided in clinic. 04/27/21 MET Pt is highly compliant STG Duration 4 weeks - 04/12/21 Textile Cutting Machine Operator Goal (LTG) Pt will improve RUE flexion and abduction by 10 degrees and extension by 5 degrees to improve her ability to participate in self-care. LTG Duration 12 weeks - 06/07/21 Two Impairment no compression garment Short Term Goal (STG) Patient will be able to teach back regarding benefits and safe use of compression for edema reduction and long-term management. 04/27/21 - Pt is well-versed in benefits of long-term compression. She is now wearing a sleeve and a bra with lower than recommended compression but pt does not feel she could tolerate higher level. STG Duration 4 weeks - 04/12/21 Jail Goal (LTG) When stable, patient will be measured and fit for appropriate compression garments. She will be able to don and doff correctly and safely. LTG Duration 12 weeks - 06/07/21 One Impairment function-limiting swelling RUE and trunk Short Term Goal (STG) Pt will be educated in self- MLD and compression wrapping/ compression alternative. 04/27/21 Pt demonstrates excellent buy-in and has been performing self MLD independently. STG Duration 4 weeks - 04/12/21 Textile Cutting Machine Operator Goal (LTG) Decrease proximal arm and trunk swelling to stable (no change >1 cm over the course of one week) LTG Duration 12 weeks - 06/07/21 Progress Towards Goals Progress Towards Goals Progressing Toward Goals Assessment Summary Assessment Continues to progress with increased resistance for lat pull and shrug, improving shoulder ROM, decreased tissue fibrosis with improved tolerance for soft tissue mobilization including tools. Patient highly compliant with self-care Physical Therapy Plan Frequency and Duration Frequency of Treatment 20 visits Duration of Treatment 12 weeks Plan of Care Start Date 03/15/21 Plan of Care End Date 06/07/21 Therapeutic Interventions Therapeutic Interventions Home Exercise Program, Lymphedema Management,Manual Therapy,Patient/Caregiver Education,Self-Care/Home Management,Soft Tissue Mobilization,Therapeutic Activities,Therapeutic Exercises Next Visit Focus/Plan Next Note Type Treatment Note Next Visit Plan Lymphedema management with emphasis on MLD, scar mobilization, ROM, progression of ther ex, and continued self care education.
--- NOTE | 2021-05-10 15:49 | PT.OTN ---
Current Diagnoses Malignant neoplasm of unspecified site of right female breast (05/10/21) Lymphedema, not elsewhere classified (05/10/21) Estrogen receptor positive status [ER+] (05/10/21) Physical Therapy Treatment Note PT-OP-A Visit Information Start: 03/15/21 12:52 Freq: Status: Active Protocol: Document 05/10/21 15:38 AW (Rec: 05/10/21 15:42 AW [id number]) Out-Patient Physical Therapy Visit Information Visit Information Visit Type Treatment Note Visit Start Time 14:30 Visit Stop Time 15:38 Total Visit Minutes 68 Visit Number 13 Evaluation Information Evaluation Date 03/15/21 PT-OP-B Current Condition Start: 03/15/21 12:52 Freq: Status: Active Protocol: Document 03/29/21 14:31 SAK (Rec: 03/29/21 14:59 SAK [id number]) Current Condition History of Current Condition Onset Date late 2019 Current Complaints RUE and trunk swelling/ lymphedema; decreased RUE ROM History of Current Condition Diagnosed with 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 She consulted with [facility] but was treated more locally. On July 22, 2020, pt underwent R breast lumpectomy and sentinel lymph node biopsy ( six nodes removed, 2 positive for metastasis) at [facility] in [place]. She completed a course of advujant radiation at [facility] on 11/19/20 . She is currently maintained on letrozole to reduce overall estrogen load. Pt reports lymphedema onset late 2019 and was seen by a PT at [facility] earlier this year. Treatment consisted primarily of MLD with good results/ reduction and improved range of motion. She now reports it is difficult for her to sleep on either side. When she sleeps on her left, she feels pulling in the right breast, axilla, and posterior trunk. Sleeping on her right side is too painful. She still has swelling and reports it is better in the morning, worse as the day wears on. She reports less swelling if not wearing a bra but it still gets worse throughout the day. The area becomes more dense and changes color as swelling increases. Prior Treatments and Tests Cancer treatment as noted above and lymphedema PT earlier this year. PT-OP-C Subjective Start: 03/15/21 12:52 Freq: Status: Active Protocol: Document 05/10/21 15:38 AW (Rec: 05/10/21 15:42 AW [id number]) OP-PT Subjective Patient Comments Patient Comments Last Sunday was a painful day. Pt is unable to explain why that day was different but Tylenol helped. PT-OP-F Manual Assessment Start: 03/15/21 12:52 Freq: Status: Active Protocol: Document 03/15/21 16:00 AW (Rec: 03/15/21 17:45 AW [email or web address]) Manual Assessments Soft Tissue Assessment Soft Tissue Mobility Assessment No fibrotic tissue appreciated in RUE. There is density along the surgical incision and swelling noted in axilla, anteriorly on the chest, and posteriorly toward the scapula . PT-OP-K Range of Motion Start: 03/15/21 12:52 Freq: Status: Active Protocol: Document 03/15/21 16:00 AW (Rec: 03/15/21 17:45 AW [email or web address]) Cervical Spine Range of Motion Cervical Spine Active Comments All cervical ROM WNL including 60 degrees of rotation bilaterally. No unilateral deficit noted. Shoulder Goniometric Range of Motion Shoulder Right Active Testing Position Sitting Flexion 140 Extension 20 Abduction 140 Comments All right shoulder ROM restricted by swelling, pain, surgical scar tissue, quality of irradiated tissue. Distal ROM WNL. Left Active Testing Position Sitting Flexion 160 Extension 35 Abduction 170 Comments Rotation WNL Shoulder ROM Limitations Shoulder ROM Limitations Soft Tissue Tightness,Pain PT-OP-M Strength Start: 03/15/21 12:52 Freq: Status: Active Protocol: Document 03/15/21 16:00 AW (Rec: 03/15/21 17:52 AW [email or web address]) Shoulder Strength Shoulder Manual Muscle Testing Right Flexion 3+ Fair+ Extension 4- Good- Abduction (C5) 3+ Fair+ External Rotation 4- Good- Internal Rotation 4 Good Comments MMT produces pain in shoulder, proximal trunk. Left Flexion 4+ Good+ Extension 4+ Good+ Abduction (C5) 4+ Good+ External Rotation 4+ Good+ Internal Rotation 4+ Good+ Elbow/Forearm Strength Elbow and Forearm Manual Muscle Testing bilateral Comments R grossly 4+/5 L grossly 4-/5 Hand Senior Environmental Consultant/Pinch Strength Hand Dominance Hand Dominance Right Hand Strength Right Comments Not tested with dynamometer, but right 4-/5 and left 4+/5 PT-OP-N Lymphedema Start: 03/15/21 12:52 Freq: Status: Active Protocol: Document 05/10/21 15:38 AW (Rec: 05/10/21 15:48 AW [email or web address]) Lymphedema Measurements Upper Extremity Circumference Measurements Right Affected MCP 18.2 cm Dorsum of Hand 18.3 cm Wrist 16.1 cm 10 cm From Wrist Crease 19 cm 20 cm From Wrist Crease 23.8 cm 30 cm From Wrist Crease 25.7 cm 40 cm From Wrist Crease 28.1 cm Elbow Joint 24.2 cm - chest at axilla 88.4 cm - chest (nipple line) 97.0 cm PT-OP-Q Treatments Start: 03/15/21 12:52 Freq: Status: Active Protocol: Document 05/10/21 15:38 AW (Rec: 05/10/21 15:42 AW [id number]) Gym Equipment Cable Column (Body Solid) lat pull Resistance 15 Reps/Time 10x2 Therapeutic Exercises Supine Exercises horizontal abduct Equipment Used foam roll Reps/Minutes 10x2, 1x30 Comments end range stretch after 10th rep shoulder flexion Equipment Used foam roll Reps/Minutes 10x2, 1x30 Comments end range stretch after 10th rep Sitting Exercises pulleys Sitting Exercise Name flexion, scaption Reps/Minutes 10x ea Comments end range deep breathing into the tight spots Standing Exercises row Resistance level 2 Equipment Used TB Reps/Minutes 2x10 Comments HEP Manual Therapy Treatment Soft Tissue Mobilization scar massage Body Location right breast Mobilization Type Myofascial Release,Rolling Intensity/Depth Moderate Body Position Supine Lymphedema Treatment Manual Lymphatic Drainage Location R breast and subaxillary region Duration 35 min Comments Focused on AAA, NORMA, and AIA, right breast to increase lymphangiomotoricity, promote drainage, fibrosis reduction. supine, sidelying Lymphedema Wrapping Other compression bra, 2 chip bags; one lateral trunk, one inferior aspect breast. Patient self-dons Sequential Lymphedema Exercises Comments patient continues at home PT-OP-T Assessment and Plan Start: 03/15/21 12:52 Freq: Status: Active Protocol: Document 05/10/21 15:38 AW (Rec: 05/10/21 15:48 AW [email or web address]) Physical Therapy Assessment Impairments Impairments Activity Tolerance,Edema, Functional Activities, Functional Mobility,Integument ,Pain,Posture,ROM,Sensation, Soft Tissue Mobility,Strength Goals Four Impairment impaired strength RUE Building Code Administrator Goal (LTG) Pt will improve RUE strength to 4+/5 globally to promote shoulder stability and ability to participate in yoga activities. LTG Duration 12 weeks - 06/07/21 Three Impairment impaired ROM RUE Short Term Goal (STG) Pt will be independent with HEP aimed at improving RUE ROM to support therapy services provided in clinic. 04/27/21 MET Pt is highly compliant STG Duration 4 weeks - 04/12/21 Prison Goal (LTG) Pt will improve RUE flexion and abduction by 10 degrees and extension by 5 degrees to improve her ability to participate in self-care. LTG Duration 12 weeks - 06/07/21 Two Impairment no compression garment Short Term Goal (STG) Patient will be able to teach back regarding benefits and safe use of compression for edema reduction and long-term management. 04/27/21 - Pt is well-versed in benefits of long-term compression. She is now wearing a sleeve and a bra with lower than recommended compression but pt does not feel she could tolerate higher level. STG Duration 4 weeks - 04/12/21 Building Code Administrator Goal (LTG) When stable, patient will be measured and fit for appropriate compression garments. She will be able to don and doff correctly and safely. LTG Duration 12 weeks - 06/07/21 One Impairment function-limiting swelling RUE and trunk Short Term Goal (STG) Pt will be educated in self- MLD and compression wrapping/ compression alternative. 04/27/21 Pt demonstrates excellent buy-in and has been performing self MLD independently. STG Duration 4 weeks - 04/12/21 Prison Goal (LTG) Decrease proximal arm and trunk swelling to stable (no change >1 cm over the course of one week) LTG Duration 12 weeks - 06/07/21 Progress Towards Goals Progress Towards Goals Progressing Toward Goals Assessment Summary Assessment Measurements largely stable today with modest reduction in chest measurements. Shoulder ROM continues to improve. Physical Therapy Plan Frequency and Duration Frequency of Treatment 20 visits Duration of Treatment 12 weeks Plan of Care Start Date 03/15/21 Plan of Care End Date 06/07/21 Therapeutic Interventions Therapeutic Interventions Home Exercise Program, Lymphedema Management,Manual Therapy,Patient/Caregiver Education,Self-Care/Home Management,Soft Tissue Mobilization,Therapeutic Activities,Therapeutic Exercises Next Visit Focus/Plan Next Note Type Treatment Note Next Visit Plan Lymphedema management with emphasis on MLD, scar mobilization, ROM, progression of ther ex, and continued self care education.
--- NOTE | 2021-05-16 14:20 | PT.OTN ---
Current Diagnoses Malignant neoplasm of unspecified site of right female breast (05/16/21) Lymphedema, not elsewhere classified (05/16/21) Estrogen receptor positive status [ER+] (05/16/21) Physical Therapy Treatment Note PT-OP-A Visit Information Start: 03/15/21 12:52 Freq: Status: Active Protocol: Document 05/16/21 12:58 SAK (Rec: 05/16/21 13:24 SAK [id number]) Out-Patient Physical Therapy Visit Information Visit Information Visit Type Treatment Note Visit Start Time 13:00 Visit Stop Time 14:08 Total Visit Minutes 68 Visit Number 14 Evaluation Information Evaluation Date 03/15/21 PT-OP-B Current Condition Start: 03/15/21 12:52 Freq: Status: Active Protocol: Document 03/29/21 14:31 SAK (Rec: 03/29/21 14:59 SAK [id number]) Current Condition History of Current Condition Onset Date late 2019 Current Complaints RUE and trunk swelling/ lymphedema; decreased RUE ROM History of Current Condition Diagnosed with 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 She consulted with [facility] but was treated more locally. On July 22, 2020, pt underwent R breast lumpectomy and sentinel lymph node biopsy ( six nodes removed, 2 positive for metastasis) at [facility] in [place]. She completed a course of advujant radiation at [facility] on 11/19/20 . She is currently maintained on letrozole to reduce overall estrogen load. Pt reports lymphedema onset late 2019 and was seen by a PT at [facility] earlier this year. Treatment consisted primarily of MLD with good results/ reduction and improved range of motion. She now reports it is difficult for her to sleep on either side. When she sleeps on her left, she feels pulling in the right breast, axilla, and posterior trunk. Sleeping on her right side is too painful. She still has swelling and reports it is better in the morning, worse as the day wears on. She reports less swelling if not wearing a bra but it still gets worse throughout the day. The area becomes more dense and changes color as swelling increases. Prior Treatments and Tests Cancer treatment as noted above and lymphedema PT earlier this year. PT-OP-C Subjective Start: 03/15/21 12:52 Freq: Status: Active Protocol: Document 05/16/21 12:58 SAK (Rec: 05/16/21 13:24 [facility] [id number]) OP-PT Subjective Patient Comments Patient Comments Was sick 05/11-05/15, tested for Covid 05/14; negative. Did self-massage and drainage, no exercises. Feels good today. A little stiff and tired today. PT-OP-F Manual Assessment Start: 03/15/21 12:52 Freq: Status: Active Protocol: Document 03/15/21 16:00 AW (Rec: 03/15/21 17:45 AW [email or web address]) Manual Assessments Soft Tissue Assessment Soft Tissue Mobility Assessment No fibrotic tissue appreciated in RUE. There is density along the surgical incision and swelling noted in axilla, anteriorly on the chest, and posteriorly toward the scapula . PT-OP-K Range of Motion Start: 03/15/21 12:52 Freq: Status: Active Protocol: Document 03/15/21 16:00 AW (Rec: 03/15/21 17:45 AW [email or web address]) Cervical Spine Range of Motion Cervical Spine Active Comments All cervical ROM WNL including 60 degrees of rotation bilaterally. No unilateral deficit noted. Shoulder Goniometric Range of Motion Shoulder Right Active Testing Position Sitting Flexion 140 Extension 20 Abduction 140 Comments All right shoulder ROM restricted by swelling, pain, surgical scar tissue, quality of irradiated tissue. Distal ROM WNL. Left Active Testing Position Sitting Flexion 160 Extension 35 Abduction 170 Comments Rotation WNL Shoulder ROM Limitations Shoulder ROM Limitations Soft Tissue Tightness,Pain PT-OP-M Strength Start: 03/15/21 12:52 Freq: Status: Active Protocol: Document 03/15/21 16:00 AW (Rec: 03/15/21 17:52 AW [email or web address]) Shoulder Strength Shoulder Manual Muscle Testing Right Flexion 3+ Fair+ Extension 4- Good- Abduction (C5) 3+ Fair+ External Rotation 4- Good- Internal Rotation 4 Good Comments MMT produces pain in shoulder, proximal trunk. Left Flexion 4+ Good+ Extension 4+ Good+ Abduction (C5) 4+ Good+ External Rotation 4+ Good+ Internal Rotation 4+ Good+ Elbow/Forearm Strength Elbow and Forearm Manual Muscle Testing bilateral Comments R grossly 4+/5 L grossly 4-/5 Hand Departmental Secretary/Pinch Strength Hand Dominance Hand Dominance Right Hand Strength Right Comments Not tested with dynamometer, but right 4-/5 and left 4+/5 PT-OP-N Lymphedema Start: 03/15/21 12:52 Freq: Status: Active Protocol: Document 05/16/21 12:58 [facility] (Rec: 05/16/21 14:15 [facility] [id number]) Lymphedema Measurements Upper Extremity Circumference Measurements Right Affected MCP 18.3 cm Dorsum of Hand 18.4 cm Wrist 15.7 cm 10 cm From Wrist Crease 19.4 cm 20 cm From Wrist Crease 23.5 cm 30 cm From Wrist Crease 26.6 cm 40 cm From Wrist Crease 27.8 cm Elbow Joint 24 cm - chest at axilla 86.8 - chest (nipple line) 97.5 PT-OP-Q Treatments Start: 03/15/21 12:52 Freq: Status: Active Protocol: Document 05/16/21 12:58 [facility] (Rec: 05/16/21 13:24 [facility] [id number]) Cardio Equipment Recumbent Elliptical (Biodex) Duration (Minutes) 5 Resistance 2 Seat Position 5 Gym Equipment Cable Column (Body Solid) lat pull Resistance 15 Reps/Time 10x2 scapular shrug Details inferior (lower trap facil) Resistance 15 Reps/Time 10x2, manual facilitation Manual Therapy Treatment Soft Tissue Mobilization scar massage Body Location right breast Mobilization Type Myofascial Release,Rolling Intensity/Depth Moderate Body Position Supine Lymphedema Treatment Manual Lymphatic Drainage Location R breast and subaxillary region Duration 35 min Comments Focused on AAA, NORMA, and AIA, right breast to increase lymphangiomotoricity, promote drainage, fibrosis reduction. supine, sidelying Lymphedema Wrapping Other compression bra, 2 chip bags; one lateral trunk, one inferior aspect breast. Patient self-dons Sequential Lymphedema Exercises Comments patient continues at home Other Other Per cancer rehab PT YouTube channel, patient shown safe use of rebounder and demonstrated good understanding. PT-OP-T Assessment and Plan Start: 03/15/21 12:52 Freq: Status: Active Protocol: Document 05/16/21 12:58 [facility] (Rec: 05/16/21 13:24 [facility] [id number]) Physical Therapy Assessment Impairments Impairments Activity Tolerance,Edema, Functional Activities, Functional Mobility,Integument ,Pain,Posture,ROM,Sensation, Soft Tissue Mobility,Strength Goals Four Impairment impaired strength RUE Penitentiary Goal (LTG) Pt will improve RUE strength to 4+/5 globally to promote shoulder stability and ability to participate in yoga activities. 05/16/21: good goal progress LTG Duration 12 weeks - 06/07/21 Three Impairment impaired ROM RUE Short Term Goal (STG) Pt will be independent with HEP aimed at improving RUE ROM to support therapy services provided in clinic. 04/27/21 MET Pt is highly compliant STG Duration 4 weeks - 04/12/21 Penitentiary Goal (LTG) Pt will improve RUE flexion and abduction by 10 degrees and extension by 5 degrees to improve her ability to participate in self-care. LTG Duration 12 weeks - 06/07/21 Two Impairment no compression garment Short Term Goal (STG) Patient will be able to teach back regarding benefits and safe use of compression for edema reduction and long-term management. 04/27/21 - Pt is well-versed in benefits of long-term compression. She is now wearing a sleeve and a bra with lower than recommended compression but pt does not feel she could tolerate higher level. STG Duration 4 weeks - 04/12/21 Planning Technician Goal (LTG) When stable, patient will be measured and fit for appropriate compression garments. She will be able to don and doff correctly and safely. LTG Duration 12 weeks - 06/07/21 One Impairment function-limiting swelling RUE and trunk Short Term Goal (STG) Pt will be educated in self- MLD and compression wrapping/ compression alternative. 04/27/21 Pt demonstrates excellent buy-in and has been performing self MLD independently. STG Duration goal met Penitentiary Goal (LTG) Decrease proximal arm and trunk swelling to stable (no change >1 cm over the course of one week) LTG Duration 12 weeks - 06/07/21 Progress Towards Goals Progress Towards Goals Progressing Toward Goals Assessment Summary Assessment Continued edema reduction in most measurements in arm and chest. Follwoing illness, patient now resuming all HEP and self-care. Physical Therapy Plan Frequency and Duration Frequency of Treatment 20 visits Duration of Treatment 12 weeks Plan of Care Start Date 03/15/21 Plan of Care End Date 06/07/21 Therapeutic Interventions Therapeutic Interventions Home Exercise Program, Lymphedema Management,Manual Therapy,Patient/Caregiver Education,Self-Care/Home Management,Soft Tissue Mobilization,Therapeutic Activities,Therapeutic Exercises Next Visit Focus/Plan Next Note Type Treatment Note Next Visit Plan Continue PT per POC.
--- NOTE | 2021-05-18 17:20 | PT.OTN ---
Current Diagnoses Malignant neoplasm of unspecified site of right female breast (05/18/21) Lymphedema, not elsewhere classified (05/18/21) Estrogen receptor positive status [ER+] (05/18/21) Physical Therapy Treatment Note PT-OP-A Visit Information Start: 03/15/21 12:52 Freq: Status: Active Protocol: Document 05/18/21 13:46 SAK (Rec: 05/18/21 14:06 SAK [id number]) Out-Patient Physical Therapy Visit Information Visit Information Visit Type Treatment Note Visit Start Time 13:46 Visit Stop Time 14:57 Total Visit Minutes 69 Visit Number 15 Evaluation Information Evaluation Date 03/15/21 PT-OP-B Current Condition Start: 03/15/21 12:52 Freq: Status: Active Protocol: Document 03/29/21 14:31 SAK (Rec: 03/29/21 14:59 SAK [id number]) Current Condition History of Current Condition Onset Date late 2019 Current Complaints RUE and trunk swelling/ lymphedema; decreased RUE ROM History of Current Condition Diagnosed with 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 She consulted with [facility] but was treated more locally. On July 22, 2020, pt underwent R breast lumpectomy and sentinel lymph node biopsy ( six nodes removed, 2 positive for metastasis) at [facility] in [place]. She completed a course of advujant radiation at [facility] on 11/19/20 . She is currently maintained on letrozole to reduce overall estrogen load. Pt reports lymphedema onset late 2019 and was seen by a PT at [facility] earlier this year. Treatment consisted primarily of MLD with good results/ reduction and improved range of motion. She now reports it is difficult for her to sleep on either side. When she sleeps on her left, she feels pulling in the right breast, axilla, and posterior trunk. Sleeping on her right side is too painful. She still has swelling and reports it is better in the morning, worse as the day wears on. She reports less swelling if not wearing a bra but it still gets worse throughout the day. The area becomes more dense and changes color as swelling increases. Prior Treatments and Tests Cancer treatment as noted above and lymphedema PT earlier this year. PT-OP-C Subjective Start: 03/15/21 12:52 Freq: Status: Active Protocol: Document 05/18/21 13:46 SAK (Rec: 05/18/21 14:06 SAK [id number]) OP-PT Subjective Patient Comments Patient Comments A little sore but not bad after last PT session PT-OP-F Manual Assessment Start: 03/15/21 12:52 Freq: Status: Active Protocol: Document 03/15/21 16:00 AW (Rec: 03/15/21 17:45 AW [id number]) Manual Assessments Soft Tissue Assessment Soft Tissue Mobility Assessment No fibrotic tissue appreciated in RUE. There is density along the surgical incision and swelling noted in axilla, anteriorly on the chest, and posteriorly toward the scapula . PT-OP-K Range of Motion Start: 03/15/21 12:52 Freq: Status: Active Protocol: Document 03/15/21 16:00 AW (Rec: 03/15/21 17:45 AW [email or web address]) Cervical Spine Range of Motion Cervical Spine Active Comments All cervical ROM WNL including 60 degrees of rotation bilaterally. No unilateral deficit noted. Shoulder Goniometric Range of Motion Shoulder Right Active Testing Position Sitting Flexion 140 Extension 20 Abduction 140 Comments All right shoulder ROM restricted by swelling, pain, surgical scar tissue, quality of irradiated tissue. Distal ROM WNL. Left Active Testing Position Sitting Flexion 160 Extension 35 Abduction 170 Comments Rotation WNL Shoulder ROM Limitations Shoulder ROM Limitations Soft Tissue Tightness,Pain PT-OP-M Strength Start: 03/15/21 12:52 Freq: Status: Active Protocol: Document 03/15/21 16:00 AW (Rec: 03/15/21 17:52 AW [id number]) Shoulder Strength Shoulder Manual Muscle Testing Right Flexion 3+ Fair+ Extension 4- Good- Abduction (C5) 3+ Fair+ External Rotation 4- Good- Internal Rotation 4 Good Comments MMT produces pain in shoulder, proximal trunk. Left Flexion 4+ Good+ Extension 4+ Good+ Abduction (C5) 4+ Good+ External Rotation 4+ Good+ Internal Rotation 4+ Good+ Elbow/Forearm Strength Elbow and Forearm Manual Muscle Testing bilateral Comments R grossly 4+/5 L grossly 4-/5 Hand Lining Printer/Pinch Strength Hand Dominance Hand Dominance Right Hand Strength Right Comments Not tested with dynamometer, but right 4-/5 and left 4+/5 PT-OP-N Lymphedema Start: 03/15/21 12:52 Freq: Status: Active Protocol: Document 05/16/21 12:58 SAK (Rec: 05/16/21 14:15 [facility] [id number]) Lymphedema Measurements Upper Extremity Circumference Measurements Right Affected MCP 18.3 cm Dorsum of Hand 18.4 cm Wrist 15.7 cm 10 cm From Wrist Crease 19.4 cm 20 cm From Wrist Crease 23.5 cm 30 cm From Wrist Crease 26.6 cm 40 cm From Wrist Crease 27.8 cm Elbow Joint 24 cm - chest at axilla 86.8 - chest (nipple line) 97.5 PT-OP-Q Treatments Start: 03/15/21 12:52 Freq: Status: Active Protocol: Document 05/18/21 13:46 [facility] (Rec: 05/18/21 14:06 [facility] [id number]) Gym Equipment Cable Column (Body Solid) lat pull Resistance 17 Reps/Time 10x2 scapular shrug Details inferior (lower trap facil) Resistance 15 Reps/Time 10x2, manual facilitation Therapeutic Exercises Sidelying Exercises modified plank Reps/Minutes 2x Comments on knees Sitting Exercises seated twist Reps/Minutes 5x Comments end range deep breathing pulleys Sitting Exercise Name flexion, abduction Reps/Minutes 10x ea Comments end range deep breathing into the tight spots Standing Exercises row Comments HEP modfied downward dog Standing Exercise Name full downward dog tolerated Reps/Minutes 2x30 Manual Therapy Treatment Soft Tissue Mobilization scar massage Body Location right breast Mobilization Type Instrument Assisted,Myofascial Release,Rolling Intensity/Depth Moderate Body Position Supine Lymphedema Treatment Manual Lymphatic Drainage Location R breast and subaxillary region Duration 35 min Comments Focused on AAA, NORMA, and AIA, right breast to increase lymphangiomotoricity, promote drainage, fibrosis reduction. supine, sidelying Lymphedema Wrapping Other compression bra, 2 chip bags; one lateral trunk, one inferior aspect breast. Patient self-dons Sequential Lymphedema Exercises Comments patient continues at home Other Other need to shorten straps on bra wearing today for increased compression subaxillary area with chip bag under for improved scar tissue mobilization and lymphedema management. PT-OP-T Assessment and Plan Start: 03/15/21 12:52 Freq: Status: Active Protocol: Document 05/18/21 13:46 [facility] (Rec: 05/18/21 14:06 [facility] [id number]) Physical Therapy Assessment Impairments Impairments Activity Tolerance,Edema, Functional Activities, Functional Mobility,Integument ,Pain,Posture,ROM,Sensation, Soft Tissue Mobility,Strength Goals Four Impairment impaired strength RUE Senior Care Goal (LTG) Pt will improve RUE strength to 4+/5 globally to promote shoulder stability and ability to participate in yoga activities. 05/16/21: good goal progress LTG Duration 12 weeks - 06/07/21 Three Impairment impaired ROM RUE Short Term Goal (STG) Pt will be independent with HEP aimed at improving RUE ROM to support therapy services provided in clinic. 04/27/21 MET Pt is highly compliant STG Duration 4 weeks - 04/12/21 Senior Care Goal (LTG) Pt will improve RUE flexion and abduction by 10 degrees and extension by 5 degrees to improve her ability to participate in self-care. LTG Duration 12 weeks - 06/07/21 Two Impairment no compression garment Short Term Goal (STG) Patient will be able to teach back regarding benefits and safe use of compression for edema reduction and long-term management. 04/27/21 - Pt is well-versed in benefits of long-term compression. She is now wearing a sleeve and a bra with lower than recommended compression but pt does not feel she could tolerate higher level. STG Duration 4 weeks - 04/12/21 Weather Clerk Goal (LTG) When stable, patient will be measured and fit for appropriate compression garments. She will be able to don and doff correctly and safely. LTG Duration 12 weeks - 06/07/21 One Impairment function-limiting swelling RUE and trunk Short Term Goal (STG) Pt will be educated in self- MLD and compression wrapping/ compression alternative. 04/27/21 Pt demonstrates excellent buy-in and has been performing self MLD independently. STG Duration goal met Senior Care Goal (LTG) Decrease proximal arm and trunk swelling to stable (no change >1 cm over the course of one week) LTG Duration 12 weeks - 06/07/21 Progress Towards Goals Progress Towards Goals Progressing Toward Goals Assessment Summary Assessment Good progress toward goals, tight at end-range, but almost full shoulder flexion today. Physical Therapy Plan Frequency and Duration Frequency of Treatment 20 visits Duration of Treatment 12 weeks Plan of Care Start Date 03/15/21 Plan of Care End Date 06/07/21 Therapeutic Interventions Therapeutic Interventions Home Exercise Program, Lymphedema Management,Manual Therapy,Patient/Caregiver Education,Self-Care/Home Management,Soft Tissue Mobilization,Therapeutic Activities,Therapeutic Exercises Next Visit Focus/Plan Next Note Type Treatment Note Next Visit Plan Continue PT per POC to address lymphedema and decreased scar mobility, shoulder ROM and function. circumferential measurements
--- NOTE | 2021-05-26 20:06 | PT.OTN ---
Current Diagnoses Malignant neoplasm of unspecified site of right female breast (05/26/21) Lymphedema, not elsewhere classified (05/26/21) Estrogen receptor positive status [ER+] (05/26/21) Physical Therapy Treatment Note PT-OP-A Visit Information Start: 03/15/21 12:52 Freq: Status: Active Protocol: Document 05/26/21 13:49 SAK (Rec: 05/26/21 14:08 SAK [id number]) Out-Patient Physical Therapy Visit Information Visit Information Visit Type Treatment Note Visit Start Time 13:46 Visit Stop Time 14:30 Total Visit Minutes 44 Visit Number 16 Evaluation Information Evaluation Date 03/15/21 PT-OP-B Current Condition Start: 03/15/21 12:52 Freq: Status: Active Protocol: Document 03/29/21 14:31 SAK (Rec: 03/29/21 14:59 SAK [id number]) Current Condition History of Current Condition Onset Date late 2019 Current Complaints RUE and trunk swelling/ lymphedema; decreased RUE ROM History of Current Condition Diagnosed with 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 She consulted with [facility] but was treated more locally. On July 22, 2020, pt underwent R breast lumpectomy and sentinel lymph node biopsy ( six nodes removed, 2 positive for metastasis) at [facility] in [place]. She completed a course of advujant radiation at [facility] on 11/19/20 . She is currently maintained on letrozole to reduce overall estrogen load. Pt reports lymphedema onset late 2019 and was seen by a PT at [facility] earlier this year. Treatment consisted primarily of MLD with good results/ reduction and improved range of motion. She now reports it is difficult for her to sleep on either side. When she sleeps on her left, she feels pulling in the right breast, axilla, and posterior trunk. Sleeping on her right side is too painful. She still has swelling and reports it is better in the morning, worse as the day wears on. She reports less swelling if not wearing a bra but it still gets worse throughout the day. The area becomes more dense and changes color as swelling increases. Prior Treatments and Tests Cancer treatment as noted above and lymphedema PT earlier this year. PT-OP-C Subjective Start: 03/15/21 12:52 Freq: Status: Active Protocol: Document 05/26/21 13:49 SAK (Rec: 05/26/21 14:08 [facility] [id number]) OP-PT Subjective Patient Comments Patient Comments Breast was sore after last PT session , interfered with her exercises. Had regularly scheduled appt with oncologist, everything looks ok. Having tests and will see again 07/04/21. States he noticed the positive changes in her breast, UE and shoulder since she started PT . PT-OP-F Manual Assessment Start: 03/15/21 12:52 Freq: Status: Active Protocol: Document 03/15/21 16:00 AW (Rec: 03/15/21 17:45 AW [email or web address]) Manual Assessments Soft Tissue Assessment Soft Tissue Mobility Assessment No fibrotic tissue appreciated in RUE. There is density along the surgical incision and swelling noted in axilla, anteriorly on the chest, and posteriorly toward the scapula . PT-OP-K Range of Motion Start: 03/15/21 12:52 Freq: Status: Active Protocol: Document 03/15/21 16:00 AW (Rec: 03/15/21 17:45 AW [id number]) Cervical Spine Range of Motion Cervical Spine Active Comments All cervical ROM WNL including 60 degrees of rotation bilaterally. No unilateral deficit noted. Shoulder Goniometric Range of Motion Shoulder Right Active Testing Position Sitting Flexion 140 Extension 20 Abduction 140 Comments All right shoulder ROM restricted by swelling, pain, surgical scar tissue, quality of irradiated tissue. Distal ROM WNL. Left Active Testing Position Sitting Flexion 160 Extension 35 Abduction 170 Comments Rotation WNL Shoulder ROM Limitations Shoulder ROM Limitations Soft Tissue Tightness,Pain PT-OP-M Strength Start: 03/15/21 12:52 Freq: Status: Active Protocol: Document 03/15/21 16:00 AW (Rec: 03/15/21 17:52 AW [id number]) Shoulder Strength Shoulder Manual Muscle Testing Right Flexion 3+ Fair+ Extension 4- Good- Abduction (C5) 3+ Fair+ External Rotation 4- Good- Internal Rotation 4 Good Comments MMT produces pain in shoulder, proximal trunk. Left Flexion 4+ Good+ Extension 4+ Good+ Abduction (C5) 4+ Good+ External Rotation 4+ Good+ Internal Rotation 4+ Good+ Elbow/Forearm Strength Elbow and Forearm Manual Muscle Testing bilateral Comments R grossly 4+/5 L grossly 4-/5 Hand Thermometer Maker/Pinch Strength Hand Dominance Hand Dominance Right Hand Strength Right Comments Not tested with dynamometer, but right 4-/5 and left 4+/5 PT-OP-N Lymphedema Start: 03/15/21 12:52 Freq: Status: Active Protocol: Document 05/16/21 12:58 [facility] (Rec: 05/16/21 14:15 [facility] [id number]) Lymphedema Measurements Upper Extremity Circumference Measurements Right Affected MCP 18.3 cm Dorsum of Hand 18.4 cm Wrist 15.7 cm 10 cm From Wrist Crease 19.4 cm 20 cm From Wrist Crease 23.5 cm 30 cm From Wrist Crease 26.6 cm 40 cm From Wrist Crease 27.8 cm Elbow Joint 24 cm - chest at axilla 86.8 - chest (nipple line) 97.5 PT-OP-Q Treatments Start: 03/15/21 12:52 Freq: Status: Active Protocol: Document 05/26/21 13:49 [facility] (Rec: 05/26/21 14:08 [facility] [id number]) Therapeutic Exercises Sitting Exercises seated twist Reps/Minutes 5x Comments end range deep breathing pulleys Sitting Exercise Name flexion, abduction Reps/Minutes 10x ea Comments end range deep breathing into the tight spots Manual Therapy Treatment Soft Tissue Mobilization scar massage Comments held due to soreness after last session Lymphedema Treatment Manual Lymphatic Drainage Location R breast and subaxillary region Duration 35 min Comments Focused on AAA, NORMA, and AIA, right breast to increase lymphangiomotoricity, promote drainage, fibrosis reduction. supine, sidelying Lymphedema Wrapping Other compression bra, 2 chip bags; one lateral trunk, one inferior aspect breast. Patient self-dons Patient Education Compression Garments continue use of chip bags subaxillar region and breast. PT-OP-T Assessment and Plan Start: 03/15/21 12:52 Freq: Status: Active Protocol: Document 05/26/21 13:49 [facility] (Rec: 05/26/21 20:06 [facility] [id number]) Physical Therapy Assessment Impairments Impairments Activity Tolerance,Edema, Functional Activities, Functional Mobility,Integument ,Pain,Posture,ROM,Sensation, Soft Tissue Mobility,Strength Goals Four Impairment impaired strength RUE Cyber Security Manager Goal (LTG) Pt will improve RUE strength to 4+/5 globally to promote shoulder stability and ability to participate in yoga activities. 05/16/21: good goal progress LTG Duration 12 weeks - 06/07/21 Three Impairment impaired ROM RUE Short Term Goal (STG) Pt will be independent with HEP aimed at improving RUE ROM to support therapy services provided in clinic. 04/27/21 MET Pt is highly compliant STG Duration 4 weeks - 04/12/21 Cyber Security Manager Goal (LTG) Pt will improve RUE flexion and abduction by 10 degrees and extension by 5 degrees to improve her ability to participate in self-care. LTG Duration 12 weeks - 06/07/21 Two Impairment no compression garment Short Term Goal (STG) Patient will be able to teach back regarding benefits and safe use of compression for edema reduction and long-term management. 04/27/21 - Pt is well-versed in benefits of long-term compression. She is now wearing a sleeve and a bra with lower than recommended compression but pt does not feel she could tolerate higher level. STG Duration 4 weeks - 04/12/21 Care Home Goal (LTG) When stable, patient will be measured and fit for appropriate compression garments. She will be able to don and doff correctly and safely. LTG Duration 12 weeks - 06/07/21 One Impairment function-limiting swelling RUE and trunk Short Term Goal (STG) Pt will be educated in self- MLD and compression wrapping/ compression alternative. 04/27/21 Pt demonstrates excellent buy-in and has been performing self MLD independently. STG Duration goal met Cyber Security Manager Goal (LTG) Decrease proximal arm and trunk swelling to stable (no change >1 cm over the course of one week) LTG Duration 12 weeks - 06/07/21 Progress Towards Goals Progress Towards Goals Progressing Toward Goals Assessment Summary Assessment measurements all stable except reduction right breast but increased swelling subaxillary region possibly due to irritation from manual treatment breast; held today. Physical Therapy Plan Frequency and Duration Frequency of Treatment 20 visits Duration of Treatment 12 weeks Plan of Care Start Date 03/15/21 Plan of Care End Date 06/07/21 Therapeutic Interventions Therapeutic Interventions Home Exercise Program, Lymphedema Management,Manual Therapy,Patient/Caregiver Education,Self-Care/Home Management,Soft Tissue Mobilization,Therapeutic Activities,Therapeutic Exercises Next Visit Focus/Plan Next Note Type Treatment Note Next Visit Plan Continue PT per POC to address lymphedema and decreased scar mobility, shoulder ROM and function. circumferential measurements
--- NOTE | 2021-06-08 17:22 | PT.OTN ---
Current Diagnoses Malignant neoplasm of unspecified site of right female breast (06/08/21) Lymphedema, not elsewhere classified (06/08/21) Estrogen receptor positive status [ER+] (06/08/21) Physical Therapy Treatment Note PT-OP-A Visit Information Start: 03/15/21 12:52 Freq: Status: Active Protocol: Document 06/08/21 14:13 AW (Rec: 06/08/21 14:13 AW [id number]) Out-Patient Physical Therapy Visit Information Visit Information Visit Type Progress Note Visit Start Time 13:30 Visit Stop Time 14:13 Total Visit Minutes 43 Visit Number 17 Evaluation Information Evaluation Date 03/15/21 PT-OP-B Current Condition Start: 03/15/21 12:52 Freq: Status: Active Protocol: Document 03/29/21 14:31 SAK (Rec: 03/29/21 14:59 SAK [id number]) Current Condition History of Current Condition Onset Date late 2019 Current Complaints RUE and trunk swelling/ lymphedema; decreased RUE ROM History of Current Condition Diagnosed with 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 She consulted with [facility] but was treated more locally. On July 22, 2020, pt underwent R breast lumpectomy and sentinel lymph node biopsy ( six nodes removed, 2 positive for metastasis) at [facility] in [place]. She completed a course of advujant radiation at [facility] on 11/19/20 . She is currently maintained on letrozole to reduce overall estrogen load. Pt reports lymphedema onset late 2019 and was seen by a PT at [facility] earlier this year. Treatment consisted primarily of MLD with good results/ reduction and improved range of motion. She now reports it is difficult for her to sleep on either side. When she sleeps on her left, she feels pulling in the right breast, axilla, and posterior trunk. Sleeping on her right side is too painful. She still has swelling and reports it is better in the morning, worse as the day wears on. She reports less swelling if not wearing a bra but it still gets worse throughout the day. The area becomes more dense and changes color as swelling increases. Prior Treatments and Tests Cancer treatment as noted above and lymphedema PT earlier this year. PT-OP-C Subjective Start: 03/15/21 12:52 Freq: Status: Active Protocol: Document 06/08/21 14:13 AW (Rec: 06/08/21 14:13 AW [id number]) OP-PT Subjective Patient Comments Patient Comments Less soreness after last visit . Pt requests not to use instrument assist for scar massage today. PT-OP-F Manual Assessment Start: 03/15/21 12:52 Freq: Status: Active Protocol: Document 03/15/21 16:00 AW (Rec: 03/15/21 17:45 AW [email or web address]) Manual Assessments Soft Tissue Assessment Soft Tissue Mobility Assessment No fibrotic tissue appreciated in RUE. There is density along the surgical incision and swelling noted in axilla, anteriorly on the chest, and posteriorly toward the scapula . PT-OP-K Range of Motion Start: 03/15/21 12:52 Freq: Status: Active Protocol: Document 03/15/21 16:00 AW (Rec: 03/15/21 17:45 AW [email or web address]) Cervical Spine Range of Motion Cervical Spine Active Comments All cervical ROM WNL including 60 degrees of rotation bilaterally. No unilateral deficit noted. Shoulder Goniometric Range of Motion Shoulder Right Active Testing Position Sitting Flexion 140 Extension 20 Abduction 140 Comments All right shoulder ROM restricted by swelling, pain, surgical scar tissue, quality of irradiated tissue. Distal ROM WNL. Left Active Testing Position Sitting Flexion 160 Extension 35 Abduction 170 Comments Rotation WNL Shoulder ROM Limitations Shoulder ROM Limitations Soft Tissue Tightness,Pain PT-OP-M Strength Start: 03/15/21 12:52 Freq: Status: Active Protocol: Document 03/15/21 16:00 AW (Rec: 03/15/21 17:52 AW [email or web address]) Shoulder Strength Shoulder Manual Muscle Testing Right Flexion 3+ Fair+ Extension 4- Good- Abduction (C5) 3+ Fair+ External Rotation 4- Good- Internal Rotation 4 Good Comments MMT produces pain in shoulder, proximal trunk. Left Flexion 4+ Good+ Extension 4+ Good+ Abduction (C5) 4+ Good+ External Rotation 4+ Good+ Internal Rotation 4+ Good+ Elbow/Forearm Strength Elbow and Forearm Manual Muscle Testing bilateral Comments R grossly 4+/5 L grossly 4-/5 Hand Warranty Manager/Pinch Strength Hand Dominance Hand Dominance Right Hand Strength Right Comments Not tested with dynamometer, but right 4-/5 and left 4+/5 PT-OP-N Lymphedema Start: 03/15/21 12:52 Freq: Status: Active Protocol: Document 06/08/21 14:13 AW (Rec: 06/08/21 17:16 AW [email or web address]) Lymphedema Measurements Upper Extremity Circumference Measurements Right Affected MCP 17.8 cm Dorsum of Hand 17.8 cm Wrist 15.9 cm 10 cm From Wrist Crease 19.2 cm 20 cm From Wrist Crease 23.9 cm 30 cm From Wrist Crease 26.1 cm 40 cm From Wrist Crease 27.9 cm Elbow Joint 24.2 cm - chest at axilla 90.0 - chest (nipple line) 97.0 PT-OP-Q Treatments Start: 03/15/21 12:52 Freq: Status: Active Protocol: Document 06/08/21 14:13 AW (Rec: 06/08/21 14:13 AW [id number]) Therapeutic Exercises Sitting Exercises seated twist Reps/Minutes 5x Comments end range deep breathing Manual Therapy Treatment Soft Tissue Mobilization scar massage Body Location R breast Mobilization Type Myofascial Release,Rolling Body Position Supine Comments superficial to moderate depth per pt preference Lymphedema Treatment Manual Lymphatic Drainage Location R breast and subaxillary region Duration 35 min Comments Focused on AAA, NORMA, and AIA, right breast to increase lymphangiomotoricity, promote drainage, fibrosis reduction. supine, sidelying Lymphedema Wrapping Other compression bra, 2 chip bags; one lateral trunk, one inferior aspect breast. Patient self-dons Sequential Lymphedema Exercises Comments patient continues at home Patient Education Compression Garments continue use of chip bags subaxillar region and breast. PT-OP-T Assessment and Plan Start: 03/15/21 12:52 Freq: Status: Active Protocol: Document 06/08/21 14:13 AW (Rec: 06/08/21 17:22 AW [email or web address]) Physical Therapy Assessment Impairments Impairments Activity Tolerance,Edema, Functional Activities, Functional Mobility,Integument ,Pain,Posture,ROM,Sensation, Soft Tissue Mobility,Strength Goals Four Impairment impaired strength RUE Press Officer Goal (LTG) Pt will improve RUE strength to 4+/5 globally to promote shoulder stability and ability to participate in yoga activities. 05/16/21: good goal progress LTG Duration 6 weeks - 07/20/21 Three Impairment impaired ROM RUE Short Term Goal (STG) Pt will be independent with HEP aimed at improving RUE ROM to support therapy services provided in clinic. 04/27/21 MET Pt is highly compliant STG Duration 4 weeks - 04/12/21 [facility] Goal (LTG) Pt will improve RUE flexion and abduction by 10 degrees and extension by 5 degrees to improve her ability to participate in self-care. LTG Duration 6 weeks - 07/20/21 Two Impairment no compression garment Short Term Goal (STG) Patient will be able to teach back regarding benefits and safe use of compression for edema reduction and long-term management. 04/27/21 - Pt is well-versed in benefits of long-term compression. She is now wearing a sleeve and a bra with lower than recommended compression but pt does not feel she could tolerate higher level. STG Duration 4 weeks - 04/12/21 [facility] Goal (LTG) When stable, patient will be measured and fit for appropriate compression garments. She will be able to don and doff correctly and safely. 06/08/21 Pt is wearing compression sleeve during the day at home LTG Duration dc One Impairment function-limiting swelling RUE and trunk Short Term Goal (STG) Pt will be educated in self- MLD and compression wrapping/ compression alternative. 04/27/21 Pt demonstrates excellent buy-in and has been performing self MLD independently. STG Duration goal met [facility] Goal (LTG) Decrease proximal arm and trunk swelling to stable (no change >1 cm over the course of one week) 06/11/21 - GOAL PROGRESS but pt continues have swelling R breast and chest. LTG Duration 6 weeks - 07/20/21 Progress Towards Goals Progress Towards Goals Progressing Toward Goals Progress Comments Pt has made excellent progress in self-care. She is proactive and completes self- MLD and compression alternatives independently. She has persistent swelling and poor scar mobility in her right breast and would benefit from continued PT to address these impairments. Assessment Summary Assessment Measurements stable or decreased today except for chest. Pt would like to continue PT as it has been helpful for reducing swelling globally. Physical Therapy Plan Frequency and Duration Frequency of Treatment 1-2x/week Duration of Treatment 6 weeks Plan of Care Start Date 06/08/21 Plan of Care End Date 07/20/21 Therapeutic Interventions Therapeutic Interventions Home Exercise Program, Lymphedema Management,Manual Therapy,Patient/Caregiver Education,Self-Care/Home Management,Soft Tissue Mobilization,Therapeutic Activities,Therapeutic Exercises Next Visit Focus/Plan Next Note Type Treatment Note Next Visit Plan Continue PT per POC to address lymphedema and decreased scar mobility, shoulder ROM and function. circumferential measurements
--- NOTE | 2021-06-08 17:23 | PT.OPPOC ---
Physical, Occupational & Speech Therapy At [facility] Current Diagnoses Malignant neoplasm of unspecified site of right female breast (06/08/21) Lymphedema, not elsewhere classified (06/08/21) Estrogen receptor positive status [ER+] (06/08/21) Visit Care Team Role Provider Type Jessica Betancourt MD Primary Care Provider Physician Specialty: Internal Medicine Address: [address] [place] [address], [id number] Email: [email or web address] Abigail Santillan MD Attending Provider Physician Referring Provider Specialty: Oncology Address: [address] [place] [address], [id number] Email: Plan Of Care PT-OP-T Assessment and Plan Start: 03/15/21 12:52 Freq: Status: Active Protocol: Document 06/08/21 14:13 AW (Rec: 06/08/21 17:22 AW [email or web address]) Physical Therapy Assessment Impairments Impairments Activity Tolerance,Edema, Functional Activities, Functional Mobility,Integument ,Pain,Posture,ROM,Sensation, Soft Tissue Mobility,Strength Goals Four Impairment impaired strength RUE Housing Director Goal (LTG) Pt will improve RUE strength to 4+/5 globally to promote shoulder stability and ability to participate in yoga activities. 05/16/21: good goal progress LTG Duration 6 weeks - 07/20/21 Three Impairment impaired ROM RUE Short Term Goal (STG) Pt will be independent with HEP aimed at improving RUE ROM to support therapy services provided in clinic. 04/27/21 MET Pt is highly compliant STG Duration 4 weeks - 04/12/21 [facility] Goal (LTG) Pt will improve RUE flexion and abduction by 10 degrees and extension by 5 degrees to improve her ability to participate in self-care. LTG Duration 6 weeks - 07/20/21 Two Impairment no compression garment Short Term Goal (STG) Patient will be able to teach back regarding benefits and safe use of compression for edema reduction and long-term management. 04/27/21 - Pt is well-versed in benefits of long-term compression. She is now wearing a sleeve and a bra with lower than recommended compression but pt does not feel she could tolerate higher level. STG Duration 4 weeks - 04/12/21 Usp Goal (LTG) When stable, patient will be measured and fit for appropriate compression garments. She will be able to don and doff correctly and safely. 06/08/21 Pt is wearing compression sleeve during the day at home LTG Duration dc One Impairment function-limiting swelling RUE and trunk Short Term Goal (STG) Pt will be educated in self- MLD and compression wrapping/ compression alternative. 04/27/21 Pt demonstrates excellent buy-in and has been performing self MLD independently. STG Duration goal met [facility]sp Goal (LTG) Decrease proximal arm and trunk swelling to stable (no change >1 cm over the course of one week) 06/11/21 - GOAL PROGRESS but pt continues have swelling R breast and chest. LTG Duration 6 weeks - 07/20/21 Progress Towards Goals Progress Towards Goals Progressing Toward Goals Progress Comments Pt has made excellent progress in self-care. She is proactive and completes self- MLD and compression alternatives independently. She has persistent swelling and poor scar mobility in her right breast and would benefit from continued PT to address these impairments. Assessment Summary Assessment Measurements stable or decreased today except for chest. Pt would like to continue PT as it has been helpful for reducing swelling globally. Physical Therapy Plan Frequency and Duration Frequency of Treatment 1-2x/week Duration of Treatment 6 weeks Plan of Care Start Date 06/08/21 Plan of Care End Date 07/20/21 Therapeutic Interventions Therapeutic Interventions Home Exercise Program, Lymphedema Management,Manual Therapy,Patient/Caregiver Education,Self-Care/Home Management,Soft Tissue Mobilization,Therapeutic Activities,Therapeutic Exercises Next Visit Focus/Plan Next Note Type Treatment Note Next Visit Plan Continue PT per POC to address lymphedema and decreased scar mobility, shoulder ROM and function. circumferential measurements Plan of Care Dates Plan of Care Start Date 06/08/21 Plan of Care End Date 07/20/21 Electronically Signed by: Chichi Juarez, PT 06/08/21 [id number] Please Sign and Return: I have reviewed this Plan of Care and certify that the skilled therapy services above are required to meet the patient?s needs. Physician Signature Date Printed Name and Credentials Clinical Instructor Signature Printed Name and Credentials
--- NOTE | 2021-06-16 12:29 | PT.OTN ---
Current Diagnoses Malignant neoplasm of unspecified site of right female breast (06/16/21) Lymphedema, not elsewhere classified (06/16/21) Estrogen receptor positive status [ER+] (06/16/21) Physical Therapy Treatment Note PT-OP-A Visit Information Start: 03/15/21 12:52 Freq: Status: Active Protocol: Document 06/16/21 11:10 AW (Rec: 06/16/21 11:13 AW [id number]) Out-Patient Physical Therapy Visit Information Visit Information Visit Type Treatment Note Visit Start Time 10:30 Visit Stop Time 11:10 Total Visit Minutes 40 Visit Number 18 Evaluation Information Evaluation Date 03/15/21 PT-OP-B Current Condition Start: 03/15/21 12:52 Freq: Status: Active Protocol: Document 03/29/21 14:31 SAK (Rec: 03/29/21 14:59 SAK [id number]) Current Condition History of Current Condition Onset Date late 2019 Current Complaints RUE and trunk swelling/ lymphedema; decreased RUE ROM History of Current Condition Diagnosed with 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 She consulted with [facility] but was treated more locally. On July 22, 2020, pt underwent R breast lumpectomy and sentinel lymph node biopsy ( six nodes removed, 2 positive for metastasis) at [facility] in [place]. She completed a course of advujant radiation at [facility] on 11/19/20 . She is currently maintained on letrozole to reduce overall estrogen load. Pt reports lymphedema onset late 2019 and was seen by a PT at [facility] earlier this year. Treatment consisted primarily of MLD with good results/ reduction and improved range of motion. She now reports it is difficult for her to sleep on either side. When she sleeps on her left, she feels pulling in the right breast, axilla, and posterior trunk. Sleeping on her right side is too painful. She still has swelling and reports it is better in the morning, worse as the day wears on. She reports less swelling if not wearing a bra but it still gets worse throughout the day. The area becomes more dense and changes color as swelling increases. Prior Treatments and Tests Cancer treatment as noted above and lymphedema PT earlier this year. PT-OP-C Subjective Start: 03/15/21 12:52 Freq: Status: Active Protocol: Document 06/16/21 11:10 AW (Rec: 06/16/21 11:13 AW [id number]) OP-PT Subjective Patient Comments Patient Comments This is the best day I've had yet. If you didn't know, you wouldn't notice this swelling. PT-OP-F Manual Assessment Start: 03/15/21 12:52 Freq: Status: Active Protocol: Document 03/15/21 16:00 AW (Rec: 03/15/21 17:45 AW [email or web address]) Manual Assessments Soft Tissue Assessment Soft Tissue Mobility Assessment No fibrotic tissue appreciated in RUE. There is density along the surgical incision and swelling noted in axilla, anteriorly on the chest, and posteriorly toward the scapula . PT-OP-K Range of Motion Start: 03/15/21 12:52 Freq: Status: Active Protocol: Document 03/15/21 16:00 AW (Rec: 03/15/21 17:45 AW [email or web address]) Cervical Spine Range of Motion Cervical Spine Active Comments All cervical ROM WNL including 60 degrees of rotation bilaterally. No unilateral deficit noted. Shoulder Goniometric Range of Motion Shoulder Right Active Testing Position Sitting Flexion 140 Extension 20 Abduction 140 Comments All right shoulder ROM restricted by swelling, pain, surgical scar tissue, quality of irradiated tissue. Distal ROM WNL. Left Active Testing Position Sitting Flexion 160 Extension 35 Abduction 170 Comments Rotation WNL Shoulder ROM Limitations Shoulder ROM Limitations Soft Tissue Tightness,Pain PT-OP-M Strength Start: 03/15/21 12:52 Freq: Status: Active Protocol: Document 03/15/21 16:00 AW (Rec: 03/15/21 17:52 AW [email or web address]) Shoulder Strength Shoulder Manual Muscle Testing Right Flexion 3+ Fair+ Extension 4- Good- Abduction (C5) 3+ Fair+ External Rotation 4- Good- Internal Rotation 4 Good Comments MMT produces pain in shoulder, proximal trunk. Left Flexion 4+ Good+ Extension 4+ Good+ Abduction (C5) 4+ Good+ External Rotation 4+ Good+ Internal Rotation 4+ Good+ Elbow/Forearm Strength Elbow and Forearm Manual Muscle Testing bilateral Comments R grossly 4+/5 L grossly 4-/5 Hand [employer] Director/Pinch Strength Hand Dominance Hand Dominance Right Hand Strength Right Comments Not tested with dynamometer, but right 4-/5 and left 4+/5 PT-OP-N Lymphedema Start: 03/15/21 12:52 Freq: Status: Active Protocol: Document 06/16/21 11:10 AW (Rec: 06/16/21 11:13 AW [id number]) Lymphedema Measurements Upper Extremity Circumference Measurements Right Affected MCP 17.8 cm Dorsum of Hand 18.1 cm Wrist 15.8 cm 10 cm From Wrist Crease 19.3 cm 20 cm From Wrist Crease 23.8 cm 30 cm From Wrist Crease 25.8 cm 40 cm From Wrist Crease 27.8 cm Elbow Joint 24.1 cm - chest at axilla 89.2 cm - chest (nipple line) 97.1 cm PT-OP-Q Treatments Start: 03/15/21 12:52 Freq: Status: Active Protocol: Document 06/16/21 11:10 AW (Rec: 06/16/21 11:13 AW [id number]) Therapeutic Exercises Sitting Exercises seated twist Reps/Minutes 5x Comments end range deep breathing Manual Therapy Treatment Soft Tissue Mobilization scar massage Body Location R breast Mobilization Type Myofascial Release,Rolling Body Position Supine Comments superficial to moderate depth per pt preference Lymphedema Treatment Manual Lymphatic Drainage Location R breast and subaxillary region Duration 35 min Comments Focused on AAA, NORMA, and AIA, right breast to increase lymphangiomotoricity, promote drainage, fibrosis reduction. supine, sidelying Lymphedema Wrapping Other compression bra, 2 chip bags; one lateral trunk, one inferior aspect breast. Patient self-dons Patient Education Compression Garments continue use of chip bags subaxillar region and breast. PT-OP-T Assessment and Plan Start: 03/15/21 12:52 Freq: Status: Active Protocol: Document 06/16/21 11:10 AW (Rec: 06/16/21 12:29 AW [email or web address]) Physical Therapy Assessment Impairments Impairments Activity Tolerance,Edema, Functional Activities, Functional Mobility,Integument ,Pain,Posture,ROM,Sensation, Soft Tissue Mobility,Strength Goals Four Impairment impaired strength RUE Unemployment Insurance Director Goal (LTG) Pt will improve RUE strength to 4+/5 globally to promote shoulder stability and ability to participate in yoga activities. 05/16/21: good goal progress LTG Duration 6 weeks - 07/20/21 Three Impairment impaired ROM RUE Short Term Goal (STG) Pt will be independent with HEP aimed at improving RUE ROM to support therapy services provided in clinic. 04/27/21 MET Pt is highly compliant STG Duration 4 weeks - 04/12/21 Retirement Goal (LTG) Pt will improve RUE flexion and abduction by 10 degrees and extension by 5 degrees to improve her ability to participate in self-care. LTG Duration 6 weeks - 07/20/21 Two Impairment no compression garment Short Term Goal (STG) Patient will be able to teach back regarding benefits and safe use of compression for edema reduction and long-term management. 04/27/21 - Pt is well-versed in benefits of long-term compression. She is now wearing a sleeve and a bra with lower than recommended compression but pt does not feel she could tolerate higher level. STG Duration 4 weeks - 04/12/21 Retirement Goal (LTG) When stable, patient will be measured and fit for appropriate compression garments. She will be able to don and doff correctly and safely. 06/08/21 Pt is wearing compression sleeve during the day at home LTG Duration dc One Impairment function-limiting swelling RUE and trunk Short Term Goal (STG) Pt will be educated in self- MLD and compression wrapping/ compression alternative. 04/27/21 Pt demonstrates excellent buy-in and has been performing self MLD independently. STG Duration goal met Retirement Goal (LTG) Decrease proximal arm and trunk swelling to stable (no change >1 cm over the course of one week) 06/11/21 - GOAL PROGRESS but pt continues have swelling R breast and chest. LTG Duration 6 weeks - 07/20/21 Assessment Summary Assessment All measurements stable or decreased today - no change >0 .5 cm. Pt is approaching independence with self- management. She would like to keep appointment next week and then is willing to consider reducing frequency or checking in for stability/progress after a month. Physical Therapy Plan Frequency and Duration Frequency of Treatment 1-2x/week Duration of Treatment 6 weeks Plan of Care Start Date 06/08/21 Plan of Care End Date 07/20/21 Therapeutic Interventions Therapeutic Interventions Home Exercise Program, Lymphedema Management,Manual Therapy,Patient/Caregiver Education,Self-Care/Home Management,Soft Tissue Mobilization,Therapeutic Activities,Therapeutic Exercises Next Visit Focus/Plan Next Note Type Treatment Note Next Visit Plan Discuss visit freqeuncy
--- NOTE | 2021-06-21 13:15 | PT.OTN ---
Current Diagnoses Malignant neoplasm of unspecified site of right female breast (06/21/21) Lymphedema, not elsewhere classified (06/21/21) Estrogen receptor positive status [ER+] (06/21/21) Physical Therapy Treatment Note PT-OP-A Visit Information Start: 03/15/21 12:52 Freq: Status: Active Protocol: Document 06/21/21 10:36 SAK (Rec: 06/21/21 10:55 SAK [id number]) Out-Patient Physical Therapy Visit Information Visit Information Visit Type Treatment Note Visit Start Time 10:30 Visit Stop Time 11:10 Total Visit Minutes 45 Visit Number 19 Evaluation Information Evaluation Date 03/15/21 PT-OP-B Current Condition Start: 03/15/21 12:52 Freq: Status: Active Protocol: Document 03/29/21 14:31 SAK (Rec: 03/29/21 14:59 SAK [id number]) Current Condition History of Current Condition Onset Date late 2019 Current Complaints RUE and trunk swelling/ lymphedema; decreased RUE ROM History of Current Condition Diagnosed with 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 She consulted with [facility] but was treated more locally. On July 22, 2020, pt underwent R breast lumpectomy and sentinel lymph node biopsy ( six nodes removed, 2 positive for metastasis) at [facility] in [place]. She completed a course of advujant radiation at [facility] on 11/19/20 . She is currently maintained on letrozole to reduce overall estrogen load. Pt reports lymphedema onset late 2019 and was seen by a PT at [facility] earlier this year. Treatment consisted primarily of MLD with good results/ reduction and improved range of motion. She now reports it is difficult for her to sleep on either side. When she sleeps on her left, she feels pulling in the right breast, axilla, and posterior trunk. Sleeping on her right side is too painful. She still has swelling and reports it is better in the morning, worse as the day wears on. She reports less swelling if not wearing a bra but it still gets worse throughout the day. The area becomes more dense and changes color as swelling increases. Prior Treatments and Tests Cancer treatment as noted above and lymphedema PT earlier this year. PT-OP-C Subjective Start: 03/15/21 12:52 Freq: Status: Active Protocol: Document 06/21/21 10:36 SAK (Rec: 06/21/21 10:55 [facility] [id number]) OP-PT Subjective Patient Comments Patient Comments Swelling well-controlled, doing self drainage. What is new is pain in lower breast and shoulder blade right for several weeks. Pain 3/10, not bad but is new. Has mammogram 06/29/21 and is afraid of it hurting. PT-OP-F Manual Assessment Start: 03/15/21 12:52 Freq: Status: Active Protocol: Document 03/15/21 16:00 AW (Rec: 03/15/21 17:45 AW [id number]) Manual Assessments Soft Tissue Assessment Soft Tissue Mobility Assessment No fibrotic tissue appreciated in RUE. There is density along the surgical incision and swelling noted in axilla, anteriorly on the chest, and posteriorly toward the scapula . PT-OP-K Range of Motion Start: 03/15/21 12:52 Freq: Status: Active Protocol: Document 03/15/21 16:00 AW (Rec: 03/15/21 17:45 AW [id number]) Cervical Spine Range of Motion Cervical Spine Active Comments All cervical ROM WNL including 60 degrees of rotation bilaterally. No unilateral deficit noted. Shoulder Goniometric Range of Motion Shoulder Right Active Testing Position Sitting Flexion 140 Extension 20 Abduction 140 Comments All right shoulder ROM restricted by swelling, pain, surgical scar tissue, quality of irradiated tissue. Distal ROM WNL. Left Active Testing Position Sitting Flexion 160 Extension 35 Abduction 170 Comments Rotation WNL Shoulder ROM Limitations Shoulder ROM Limitations Soft Tissue Tightness,Pain PT-OP-M Strength Start: 03/15/21 12:52 Freq: Status: Active Protocol: Document 03/15/21 16:00 AW (Rec: 03/15/21 17:52 AW [id number]) Shoulder Strength Shoulder Manual Muscle Testing Right Flexion 3+ Fair+ Extension 4- Good- Abduction (C5) 3+ Fair+ External Rotation 4- Good- Internal Rotation 4 Good Comments MMT produces pain in shoulder, proximal trunk. Left Flexion 4+ Good+ Extension 4+ Good+ Abduction (C5) 4+ Good+ External Rotation 4+ Good+ Internal Rotation 4+ Good+ Elbow/Forearm Strength Elbow and Forearm Manual Muscle Testing bilateral Comments R grossly 4+/5 L grossly 4-/5 Hand Fire Patrol/Pinch Strength Hand Dominance Hand Dominance Right Hand Strength Right Comments Not tested with dynamometer, but right 4-/5 and left 4+/5 PT-OP-N Lymphedema Start: 03/15/21 12:52 Freq: Status: Active Protocol: Document 06/21/21 10:36 SAK (Rec: 06/21/21 13:15 [facility] [id number]) Lymphedema Measurements Upper Extremity Circumference Measurements Right Affected MCP 17.9 cm Dorsum of Hand 18.3 cm Wrist 15.8 cm 10 cm From Wrist Crease 19.3 cm 20 cm From Wrist Crease 23.8 cm 30 cm From Wrist Crease 26.4 cm 40 cm From Wrist Crease 28.1 cm Elbow Joint 23.9 cm - chest at axilla 88.0 - chest (nipple line) 97.5 Left Unaffected MCP 17.7 cm Dorsum of Hand 18.4 cm Wrist 15.9 cm 10 cm From Wrist Crease 19.8 cm 20 cm From Wrist Crease 23.5 cm 30 cm From Wrist Crease 27.2 cm 40 cm From Wrist Crease 29.5 cm Elbow Joint 24.1 cm - chest at axilla: 88.0 cm - chest (nipple line): 97.5 PT-OP-Q Treatments Start: 03/15/21 12:52 Freq: Status: Active Protocol: Document 06/21/21 10:36 KIRAN (Rec: 06/21/21 13:15 [facility] [id number]) Lymphedema Treatment Manual Lymphatic Drainage Location R breast and subaxillary region Duration 35 min Comments Focused on AAA, NORMA, and AIA, right breast to increase lymphangiomotoricity, promote drainage, fibrosis reduction. supine, sidelying Lymphedema Wrapping Other compression bra, 2 chip bags; one lateral trunk, one inferior aspect breast. Patient self-dons Sequential Lymphedema Exercises Comments patient continues at home PT-OP-T Assessment and Plan Start: 03/15/21 12:52 Freq: Status: Active Protocol: Document 06/21/21 10:36 KIRAN (Rec: 06/21/21 10:55 [facility] [id number]) Physical Therapy Assessment Goals Four Impairment impaired strength RUE Fpc Goal (LTG) Pt will improve RUE strength to 4+/5 globally to promote shoulder stability and ability to participate in yoga activities. 05/16/21: good goal progress LTG Duration 6 weeks - 07/20/21 Three Impairment impaired ROM RUE Short Term Goal (STG) Pt will be independent with HEP aimed at improving RUE ROM to support therapy services provided in clinic. 04/27/21 MET Pt is highly compliant STG Duration 4 weeks - 04/12/21 Fpc Goal (LTG) Pt will improve RUE flexion and abduction by 10 degrees and extension by 5 degrees to improve her ability to participate in self-care. LTG Duration 6 weeks - 07/20/21 Two Impairment no compression garment Short Term Goal (STG) Patient will be able to teach back regarding benefits and safe use of compression for edema reduction and long-term management. 04/27/21 - Pt is well-versed in benefits of long-term compression. She is now wearing a sleeve and a bra with lower than recommended compression but pt does not feel she could tolerate higher level. STG Duration 4 weeks - 04/12/21 Lead Oracle Developer Goal (LTG) When stable, patient will be measured and fit for appropriate compression garments. She will be able to don and doff correctly and safely. 06/08/21 Pt is wearing compression sleeve during the day at home LTG Duration dc One Impairment function-limiting swelling RUE and trunk Short Term Goal (STG) Pt will be educated in self- MLD and compression wrapping/ compression alternative. 04/27/21 Pt demonstrates excellent buy-in and has been performing self MLD independently. STG Duration goal met Lead Oracle Developer Goal (LTG) Decrease proximal arm and trunk swelling to stable (no change >1 cm over the course of one week) 06/11/21 - GOAL PROGRESS but pt continues have swelling R breast and chest. LTG Duration 6 weeks - 07/20/21 Assessment Summary Assessment Circumferential measurements stable, patient doing well with self-management. Has mammogram in 2 weeks. Recommend follow-up in 1 month , then anticipate discharge if all continues to go well. She is wearing compression, doing self-MLD and massage and performing HEP. Fibrosis still present but significantly decreased and patient demonstrates good understanding of self-massage. Physical Therapy Plan Frequency and Duration Frequency of Treatment 1-2x/week Duration of Treatment 6 weeks Plan of Care Start Date 06/08/21 Plan of Care End Date 07/20/21 Therapeutic Interventions Therapeutic Interventions Home Exercise Program, Lymphedema Management,Manual Therapy,Patient/Caregiver Education,Self-Care/Home Management,Soft Tissue Mobilization,Therapeutic Activities,Therapeutic Exercises Next Visit Focus/Plan Next Note Type Re-Evaluation Next Visit Plan Anticipate discharge after next PT treatment.
--- NOTE | 2021-07-21 14:29 | PT.OPDS ---
Current Diagnoses Malignant neoplasm of unspecified site of right female breast (07/21/21) Lymphedema, not elsewhere classified (07/21/21) Estrogen receptor positive status [ER+] (07/21/21) Visit Care Team Role Provider Type Jessica Betancourt MD Primary Care Provider Physician Specialty: Internal Medicine Address: [address] [place] [address], [id number] Email: [email or web address] Abigail Santillan MD Attending Provider Physician Referring Provider Specialty: Oncology Address: [address] [place] [address], [phone] Email: Visit Number Visit Number 20 Discharge Summary PT-OP-B Current Condition Start: 03/15/21 12:52 Freq: Status: Active Protocol: Document 03/29/21 14:31 SAK (Rec: 03/29/21 14:59 SAK [id number]) Current Condition History of Current Condition Onset Date late 2019 Current Complaints RUE and trunk swelling/ lymphedema; decreased RUE ROM History of Current Condition Diagnosed with 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 She consulted with [facility] but was treated more locally. On July 22, 2020, pt underwent R breast lumpectomy and sentinel lymph node biopsy ( six nodes removed, 2 positive for metastasis) at [facility] in [place]. She completed a course of advujant radiation at [facility] on 11/19/20 . She is currently maintained on letrozole to reduce overall estrogen load. Pt reports lymphedema onset late 2019 and was seen by a PT at [facility] earlier this year. Treatment consisted primarily of MLD with good results/ reduction and improved range of motion. She now reports it is difficult for her to sleep on either side. When she sleeps on her left, she feels pulling in the right breast, axilla, and posterior trunk. Sleeping on her right side is too painful. She still has swelling and reports it is better in the morning, worse as the day wears on. She reports less swelling if not wearing a bra but it still gets worse throughout the day. The area becomes more dense and changes color as swelling increases. Prior Treatments and Tests Cancer treatment as noted above and lymphedema PT earlier this year. PT-OP-C Subjective Start: 03/15/21 12:52 Freq: Status: Active Protocol: Document 07/21/21 13:46 SAK (Rec: 07/21/21 14:29 SAK [id number]) OP-PT Subjective Patient Comments Patient Comments Had breast Results negative mammogram and ultrasound since last seen; thought to be seroma. Repeat in 6 months. Disappointing is her energy level not back. Pain variable , only constant is posterior shoulder cord tightness. Using trampoline, less than 15 min. Has been wearing more firm compression bra, doing massage and MLD 2x/day. PT-OP-F Manual Assessment Start: 03/15/21 12:52 Freq: Status: Active Protocol: Document 03/15/21 16:00 AW (Rec: 03/15/21 17:45 AW [id number]) Manual Assessments Soft Tissue Assessment Soft Tissue Mobility Assessment No fibrotic tissue appreciated in RUE. There is density along the surgical incision and swelling noted in axilla, anteriorly on the chest, and posteriorly toward the scapula . PT-OP-K Range of Motion Start: 03/15/21 12:52 Freq: Status: Active Protocol: Document 03/15/21 16:00 AW (Rec: 03/15/21 17:45 AW [id number]) Cervical Spine Range of Motion Cervical Spine Active Comments All cervical ROM WNL including 60 degrees of rotation bilaterally. No unilateral deficit noted. Shoulder Goniometric Range of Motion Shoulder Right Active Testing Position Sitting Flexion 140 Extension 20 Abduction 140 Comments All right shoulder ROM restricted by swelling, pain, surgical scar tissue, quality of irradiated tissue. Distal ROM WNL. Left Active Testing Position Sitting Flexion 160 Extension 35 Abduction 170 Comments Rotation WNL Shoulder ROM Limitations Shoulder ROM Limitations Soft Tissue Tightness,Pain PT-OP-M Strength Start: 03/15/21 12:52 Freq: Status: Active Protocol: Document 03/15/21 16:00 AW (Rec: 03/15/21 17:52 AW [id number]) Shoulder Strength Shoulder Manual Muscle Testing Right Flexion 3+ Fair+ Extension 4- Good- Abduction (C5) 3+ Fair+ External Rotation 4- Good- Internal Rotation 4 Good Comments MMT produces pain in shoulder, proximal trunk. Left Flexion 4+ Good+ Extension 4+ Good+ Abduction (C5) 4+ Good+ External Rotation 4+ Good+ Internal Rotation 4+ Good+ Elbow/Forearm Strength Elbow and Forearm Manual Muscle Testing bilateral Comments R grossly 4+/5 L grossly 4-/5 Hand Boring Machine Operator Horizontal/Pinch Strength Hand Dominance Hand Dominance Right Hand Strength Right Comments Not tested with dynamometer, but right 4-/5 and left 4+/5 PT-OP-N Lymphedema Start: 03/15/21 12:52 Freq: Status: Active Protocol: Document 07/21/21 13:46 [facility] (Rec: 07/21/21 14:29 [facility] [id number]) Lymphedema Measurements Upper Extremity Circumference Measurements Right Affected MCP 17.9 cm Dorsum of Hand 18.4 cm 10 cm From Wrist Crease 15.9 cm 20 cm From Wrist Crease 23.5 cm 30 cm From Wrist Crease 26.5 cm 40 cm From Wrist Crease 27.9 cm Elbow Joint 23.2 cm - chest at axilla 88.2cm - chest (nipple line) 96.7cm PT-OP-T Assessment and Plan Start: 03/15/21 12:52 Freq: Status: Active Protocol: Document 07/21/21 13:46 [facility] (Rec: 07/21/21 14:29 [facility] [id number]) Physical Therapy Assessment Goals Four Milk And Cream Grader Goal (LTG) Pt will improve RUE strength to 4+/5 globally to promote shoulder stability and ability to participate in yoga activities. 05/16/21: good goal progress LTG Duration goal met Three Short Term Goal (STG) Pt will be independent with HEP aimed at improving RUE ROM to support therapy services provided in clinic. 04/27/21 MET Pt is highly compliant STG Duration 4 weeks - 04/12/21 Shelter Goal (LTG) Pt will improve RUE flexion and abduction by 10 degrees and extension by 5 degrees to improve her ability to participate in self-care. LTG Duration goal met Two Short Term Goal (STG) Patient will be able to teach back regarding benefits and safe use of compression for edema reduction and long-term management. 04/27/21 - Pt is well-versed in benefits of long-term compression. She is now wearing a sleeve and a bra with lower than recommended compression but pt does not feel she could tolerate higher level. STG Duration 4 weeks - 04/12/21 Shelter Goal (LTG) When stable, patient will be measured and fit for appropriate compression garments. She will be able to don and doff correctly and safely. 06/08/21 Pt is wearing compression sleeve during the day at home LTG Duration goal met One Impairment function-limiting swelling RUE and trunk Short Term Goal (STG) Pt will be educated in self- MLD and compression wrapping/ compression alternative. 04/27/21 Pt demonstrates excellent buy-in and has been performing self MLD independently. STG Duration goal met Shelter Goal (LTG) Decrease proximal arm and trunk swelling to stable (no change >1 cm over the course of one week) 06/11/21 - GOAL PROGRESS but pt continues have swelling R breast and chest. LTG Duration goal met Assessment Summary Assessment Measurements stable or decreased. Patient independent in HEP and self-management. Goals met. Ready for discharge. Physical Therapy Plan Discharge Physical Therapy Discharge Reasons Goals Met
== END 2021-07-28 09:49 ==
LOC: PHYS 13:45
PROVIDERS: PCP Internal Medicine; Referring Provider Internal Medicine Hematology & Oncology; Visit Provider Internal Medicine Hematology & Oncology
DX: C50.911 Malignant neoplasm of unspecified site of right female breast (principal); Z17.0 Estrogen receptor positive status [ER+]; I89.0 Lymphedema, not elsewhere classified
CPT/HCPCS: 97110; 97140; 97162; 97535

== ENCOUNTER → 2021-11-03 09:31 | Outpatient (CLI) | payer MEDICARE, OTHER, SELFPAY ==
--- NOTE | 2021-11-17 16:59 | P.HOLT.S_ITS ---
Manager Field Sales Report Referral & Results Date Patient Seen: 11/03/21 Requesting provider: Aamir Molina Indication: Palpitations Duration of monitoring (days): 7 Diary information: There were 7 patient triggered events and 3 patient diary entries All 10 of these events were associated variably with (within 45 seconds) sinus rhythm and PACs Data: Minimum sinus heart rate was 54 beats per minute at 07:03 on 11/04/2021 Maximum sinus heart rate was 129 beats per minute at 15:56 on 11/08/2021 Maximum overall heart rate was 203 beats per minute at 15:31 on 11/06/2021 during a run of SVT Approximately 1.1% of identified beats were supraventricular ectopic in origin which would classify them as occasional Less than 1% of identified beats were ventricular ectopic in origin which would classify them as rare There were 3 runs of SVT the fastest being the 5 beat run noted above the longest also being the 5 beat run noted above. 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
== END ==
PROVIDERS: PCP Internal Medicine; Referring Provider Internal Medicine; Visit Provider Internal Medicine
DX: R00.2 Palpitations (principal)
CPT/HCPCS: 93242; 93244

== ENCOUNTER → 2021-11-16 13:58 | Outpatient (CLI) | payer MEDICARE, OTHER, SELFPAY ==
--- NOTE | 2021-11-16 | DI.RAD.S_ITS ---
PROCEDURE: XR CHEST 2V INDICATIONS: COUGH TECHNIQUE: 2 views of the chest were acquired. COMPARISON: [facility], CT, CT CHEST ABD PEL W CON, 06/10/2020, 16:20. [facility], CR, XR CHEST 1 VIEW, 12/31/2019, 14:55. FINDINGS: Surgical changes and devices: Right axillary clips. Lungs and pleura: Lungs are clear. No pleural effusions or pneumothorax. Mediastinum: Mediastinal contours are normal. Heart size is normal. Bones and chest wall: No suspicious bony abnormalities. Soft tissues appear unremarkable. IMPRESSION: No evidence acute pulmonary process. Dictated by: Pedro Salazar M.D. on 11/16/2021 at 15:33 Approved by: Pedro Salazar M.D. on 11/16/2021 at 15:36
== END ==
PROVIDERS: PCP Internal Medicine; Referring Provider Internal Medicine; Visit Provider Internal Medicine
DX: R05.9 Cough, unspecified (principal)
CPT/HCPCS: 71046

== ENCOUNTER → 2022-01-13 13:40 | Outpatient (CLI) | payer MEDICARE, OTHER, SELFPAY ==
--- NOTE | 2022-01-13 | DI.US.S_ITS ---
LIMITED ULTRASOUND OF RIGHT BREAST: 01/13/2022 CLINICAL: 6 month follow-up of cysts. Comparison is made to exams dated: 01/13/2022 mammogram, 07/15/2021 ultrasound, 07/15/2021 mammogram, and 06/29/2021 mammogram - [facility]. Ultrasound of the right breast lower outer quadrant was performed. Phillips scale images of the real-time examination were reviewed. No sonographic correlate to the mammographic finding of architectural distortion at the 8:00 position in the anterior to middle right breast. This has become more prominent and is best seen on spot latricia LM images. Incidental note made of stable fluid collections beneath the area of lateral right breast post surgical scar. IMPRESSION: SUSPICIOUS OF MALIGNANCY There is no sonographic abnormality seen in the right breast to correspond with the architectural distortion at 8 o'clock in the anterior to middle depth. Therefore stereotactic biopsy is recommended. Findings and recommendations were discussed with the patient in person by Dr. David Thompson at time of exam. This exam was interpreted at Station ID: [id number]. Electronically Signed By: Jo pitts/:01/13/2022 15:07:26 letter sent: Biopsy Required Ultrasound BI-RADS: 4 Suspicious for malignancy
--- NOTE | 2022-01-13 13:45 | DI.MG.S_ITS ---
UNILATERAL RIGHT DIGITAL DIAGNOSTIC MAMMOGRAM 3D/2D: 01/13/2022 CLINICAL: Short term follow up of the right breast. Comparison is made to exams dated: 07/15/2021 ultrasound, 07/15/2021 mammogram, and 06/29/2021 mammogram - [facility]. The tissue of right breast is heterogeneously dense. This may lower the sensitivity of mammography. There is irregular equal density architectural distortion in the right breast at 8 o'clock middle depth. Finding is seen best on LM tomography. This is more prominent. There are benign surgical clips and post surgical scar in the right breast in the upper outer quadrant that are not significantly changed and correlate with surgical site. No other significant masses or calcifications are seen in the breast. IMPRESSION: INCOMPLETE: NEEDS ADDITIONAL IMAGING EVALUATION The irregular equal density architectural distortion in the right breast persists, as seen on prior study but remains indeterminate as there previously has been no ultrasound correlate. A repeat ultrasound evaluation of the area is recommended. This was performed immediately following this exam. This exam was interpreted at Station ID: [id number]. NOTE: For mammograms, a report in lay terms will be sent to the patient. Approximately 15% of breast malignancies will not be visualized mammographically. In the management of a palpable breast mass, a negative mammogram must not discourage biopsy of a clinically suspicious lesion. Electronically Signed By: Jo pitts/:01/13/2022 14:36:18 ACR BI-RADS Category 0: Incomplete 3340F
--- NOTE | 2022-01-13 14:38 | DI.US.S_ITS ---
Patient Name: PREMA BROWN date: 1945 Sex: F Attending Physician: JEANETTE Indications: Date: 01/13/2022 14:36 At the request of: SANDY REID Procedure: US breast RT limited LIMITED ULTRASOUND OF RIGHT BREAST: 01/13/2022 CLINICAL: 6 month follow-up of cysts. Comparison is made to exams dated: 01/13/2022 mammogram, 07/15/2021 ultrasound, 07/15/2021 mammogram, and 06/29/2021 mammogram - [facility]. Ultrasound of the right breast lower outer quadrant was performed. Phillips scale images of the real-time examination were reviewed. No sonographic correlate to the mammographic finding of architectural distortion at the 8:00 position in the anterior to middle right breast. This has become more prominent and is best seen on spot latricia LM images. Incidental note made of stable fluid collections beneath the area of lateral right breast post surgical scar. IMPRESSION: SUSPICIOUS OF MALIGNANCY There is no sonographic abnormality seen in the right breast to correspond with the architectural distortion at 8 o'clock in the anterior to middle depth. Therefore stereotactic biopsy is recommended. Findings and recommendations were discussed with the patient in person by Dr. David Thompson at time of exam. This exam was interpreted at Station ID: [id number]. Electronically Signed By: Jo pitts/:01/13/2022 15:07:26 letter sent: Biopsy Required Continued Report - Page 2 of 2 Patient Name: PREMA BROWN date: 1945 Sex: F Attending Physician: JEANETTE Indications: Date: 01/13/2022 14:36 At the request of: SANDY REID Procedure: US breast RT limited Ultrasound BI-RADS: 4 Suspicious for malignancy
== END ==
PROVIDERS: PCP Internal Medicine; Referring Provider Internal Medicine; Visit Provider Internal Medicine
DX: R92.8 Other abnormal and inconclusive findings on diagnostic imaging of breast (principal); C50.911 Malignant neoplasm of unspecified site of right female breast; Z17.0 Estrogen receptor positive status [ER+]; N64.89 Other specified disorders of breast
CPT/HCPCS: 76642; 77065; G0279

== ENCOUNTER → 2022-09-07 13:18 | Outpatient (CLI) | payer MEDICARE, OTHER, SELFPAY ==
--- NOTE | 2022-09-07 13:19 | DI.MG.S_ITS ---
BILATERAL DIGITAL SCREENING MAMMOGRAM 3D/2D WITH CAD: 09/07/2022 CLINICAL: Routine screening. Personal history of right breast cancer. Comparison is made to exams dated: 06/29/2021 mammogram, 05/14/2020 mammogram, and 12/30/2018 mammogram - [facility]. Both breasts are heterogeneously dense, which may obscure small masses (category c / 51-75% glandular tissue). Current study was also evaluated with a Computer Aided Detection (CAD) system. There are benign calcifications in both breasts. There also are benign post operative findings in the right breast. Additionally, there is a biopsy clip in the left breast. No significant masses, calcifications, or other findings are seen in either breast. There has been no significant interval change. IMPRESSION: BENIGN There is no mammographic evidence of malignancy. A 1 year screening mammogram is recommended. This exam was interpreted at Station ID: [id number]. NOTE: For mammograms, a report in lay terms will be sent to the patient. Approximately 15% of breast malignancies will not be visualized mammographically. In the management of a palpable breast mass, a negative mammogram must not discourage biopsy of a clinically suspicious lesion. Electronically Signed By: David larson/yoon:09/07/2022 14:55:41 letter sent: Normal Exam ACR BI-RADS Category 2: Benign Finding(s) 3342F
== END ==
PROVIDERS: PCP Internal Medicine; Referring Provider Internal Medicine Hematology & Oncology; Visit Provider Internal Medicine Hematology & Oncology
DX: Z12.31 Encounter for screening mammogram for malignant neoplasm of breast (principal); C50.911 Malignant neoplasm of unspecified site of right female breast; Z17.0 Estrogen receptor positive status [ER+]
CPT/HCPCS: 77063; 77067

== ENCOUNTER → 2022-09-08 14:28 | Outpatient (CLI) | payer MEDICARE, OTHER, SELFPAY ==
[2022-09-08 15:58] LABS: Cholesterol 200 mg/dL (140-199); HDL Cholesterol 96 mg/dL (40-60); LDL Cholesterol Calculated 85 mg/dL (<100); Triglycerides 94 mg/dL (35-150)
[2022-09-08 16:30] LABS: TSH w/ Reflex to FT4 6.77 uIU/mL (0.47-4.68)
[2022-09-08 17:41] LABS: Free T4, Direct Thyroxine 1.07 ng/dL (0.78-2.19)
== END ==
PROVIDERS: PCP Internal Medicine; Referring Provider Internal Medicine; Visit Provider Internal Medicine
DX: E78.2 Mixed hyperlipidemia (principal)
CPT/HCPCS: 36415; 80061; 84439; 84443

== ENCOUNTER → 2023-02-05 12:14 | Outpatient (CLI) | payer MEDICARE, OTHER, SELFPAY ==
--- NOTE | 2023-02-05 12:28 | DI.DEXA.S_ITS ---
Bone Density Report Name: PREMA BROWN Age: 77 Sex: Female Ethnicity: White Date of : 1945 Indication: postmenopausal; screening for osteoporosis; Referring Provider: SANDY REID Study: Bone densitometry was performed. Exam Date: February 05, 2023 Accession number: [id number] Bone Density: Region BMD T-score Z-score Classification AP Spine(L1-L4) 1.058 0.1 2.6 Normal Femoral Neck (Left) 0.625 -2.0 0.1 Osteopenia Total Hip (Left) 0.811 -1.1 0.8 Osteopenia Femoral Neck (Right) 0.615 -2.1 0.0 Osteopenia Total Hip (Right) 0.805 -1.1 0.7 Osteopenia Total Hip Mean 0.808 -1.1 0.8 Osteopenia Total Forearm (Left) 0.403 -3.3 -0.7 Osteoporosis 1/3 Forearm (Left) 0.532 -2.7 0.0 Osteoporosis UD Forearm (Left) 0.295 -2.5 -0.6 Osteoporosis World Health Organization criteria for BMD impression classify patients as: Normal (T-score at or above -1.0), Osteopenia (T-score between -1.0 and -2.5), or Osteoporosis (T-score at or below -2.5). 10-year Fracture Risk(1): Major Osteoporotic Fracture 14% Hip Fracture 3.8% Reported Risk Factors: [place] (), Neck BMD=0.615, BMI=23.6 (1) FRAX(R) Version 3.08. Fracture probability calculated for an untreated patient. Fracture probability may be lower if the patient has received treatment. Previous Exams: -- Region Exam Age BMD T-score BMD Change BMD Change Date g/cm2 vs Baseline vs Previous -- AP Spine (L1-L4) 02/05/2023 77 1.058 0.1 -0.091 (-7.9%)# -0.091 (-7.9%)# 01/04/2021 75 1.149 0.9 Total Hip(Left) 02/05/2023 77 0.811 -1.1 -0.053 (-6.1%)# -0.053 (-6.1%)# 01/04/2021 75 0.863 -0.6 Total Hip(Right) 02/05/2023 77 0.805 -1.1 -0.033 (-3.9%)# -0.033 (-3.9%)# 01/04/2021 75 0.838 -0.9 -- *Denotes significance at 95% confidence level, LSC for AP Spine = 0.022 g/cm2, LSC for Total Hip = 0.027 g/cm2 # Denotes dissimilar scan types or analysis methods Impression: The patient has low bone mass, based on the Right Femoral Neck T-score. The patient has an estimated ten-year risk of hip fracture of 3.8% and an estimated ten-year risk of major fracture of 14%, based on the WHO FRAX algorithm. No significant bone loss was observed. Discussion: BONE DENSITY IS LOW AT ONE OR MORE SKELETAL SITES. THE PATIENT'S BMD AND CLINICAL RISK FACTORS CONTRIBUTE TO THIS PATIENT'S INCREASED RISK OF FRACTURE. This patient's lowest T-score is low at one or more skeletal sites. It meets the World Health Organization's (WHO) criteria for ?low bone mass? (T-score between -1.0 and -2.5). The patient's 10-year risk of hip fracture as calculated by FRAX exceeds the threshold where pharmacological therapy is recommended by the National Osteoporosis Foundation (NOF). However, all treatment decisions require clinical judgment and consideration of individual patient factors, including patient preferences, comorbidities, previous drug use, risk factors not captured in the FRAX model (e.g., frailty, falls, vitamin D deficiency, increased bone turnover, interval significant decline in bone density) and possible under or overestimation of fracture risk by FRAX. The patient should follow a healthful lifestyle (good nutrition with adequate calcium and vitamin D, and appropriate weight-bearing exercise). Follow-Up: Consider a repeat BMD and Vertebral Fracture Assessment (VFA) exam in 2 years or sooner if medically necessary, to reassess this patient's status. Reported by: RUFUS BOATENG M.D on 02/05/2023 12:44:00 PM.
== END ==
PROVIDERS: PCP Internal Medicine; Referring Provider Internal Medicine Hematology & Oncology; Visit Provider Internal Medicine Hematology & Oncology
DX: C50.911 Malignant neoplasm of unspecified site of right female breast (principal); Z17.0 Estrogen receptor positive status [ER+]; Z13.820 Encounter for screening for osteoporosis; M85.851 Other specified disorders of bone density and structure, right thigh; Z78.0 Asymptomatic menopausal state; Z79.811 Long term (current) use of aromatase inhibitors; Z90.710 Acquired absence of both cervix and uterus
CPT/HCPCS: 77080

== ENCOUNTER → 2023-03-16 09:00 | Outpatient (CLI) | payer MEDICARE, OTHER, SELFPAY ==
[2023-03-16 10:35] LABS: Cholesterol 188 mg/dL (140-199); HDL Cholesterol 95 mg/dL (40-60); LDL Cholesterol Calculated 81 mg/dL (<100); Triglycerides 58 mg/dL (35-150)
[2023-03-16 11:08] LABS: TSH w/ Reflex to FT4 8.56 uIU/mL (0.47-4.68)
[2023-03-16 11:37] LABS: Free T4, Direct Thyroxine 1.05 ng/dL (0.78-2.19)
== END ==
PROVIDERS: PCP Internal Medicine; Referring Provider Internal Medicine; Visit Provider Internal Medicine
DX: E78.2 Mixed hyperlipidemia (principal); Z86.39 Personal history of other endocrine, nutritional and metabolic disease
CPT/HCPCS: 36415; 80061; 84439; 84443

== ENCOUNTER → 2023-08-07 13:25 | Outpatient (CLI) | payer MEDICARE, OTHER, SELFPAY | PROVIDERS: PCP Internal Medicine; Referring Provider Dermatology; Visit Provider Dermatology | DX: L43.8 Other lichen planus (principal) | CPT/HCPCS: 36415; 86704; 86706; 87340 ==

== ENCOUNTER → 2023-09-08 10:51 | Outpatient (CLI) | payer MEDICARE, OTHER, SELFPAY ==
--- NOTE | 2023-09-08 10:53 | DI.MG.S_ITS ---
BILATERAL DIGITAL SCREENING MAMMOGRAM 3D/2D WITH CAD: 09/08/2023 CLINICAL: Routine screening. Personal history of right breast cancer. Comparison is made to exams dated: 09/07/2022 mammogram, 07/15/2021 mammogram, 06/29/2021 mammogram, and 05/14/2020 mammogram - [facility]. Both breasts are heterogeneously dense, which may obscure small masses (category c / 51-75% glandular tissue). Current study was also evaluated with a Computer Aided Detection (CAD) system. There are benign post operative findings and biopsy clip in the right breast. There also is a biopsy clip in the left breast. No significant masses, calcifications, or other findings are seen in either breast. IMPRESSION: BENIGN There is no mammographic evidence of malignancy. A 1 year screening mammogram is recommended. This exam was interpreted at Station ID: [id number]. NOTE: For mammograms, a report in lay terms will be sent to the patient. Approximately 15% of breast malignancies will not be visualized mammographically. In the management of a palpable breast mass, a negative mammogram must not discourage biopsy of a clinically suspicious lesion. Electronically Signed By: Ashlee Peguero M.D., PH.D savanah/peniglesia:09/10/2023 22:53:14 letter sent: Normal Exam ACR BI-RADS Category 2: Benign Finding(s) 3342F
== END ==
PROVIDERS: PCP Internal Medicine; Referring Provider Internal Medicine Hematology & Oncology; Visit Provider Internal Medicine Hematology & Oncology
DX: Z12.31 Encounter for screening mammogram for malignant neoplasm of breast (principal); C50.911 Malignant neoplasm of unspecified site of right female breast; Z17.0 Estrogen receptor positive status [ER+]
CPT/HCPCS: 77063; 77067

== ENCOUNTER 2023-09-12 22:52 | Inpatient (IN) | payer MEDICARE, OTHER, SELFPAY ==
[2023-09-12 22:57] VITALS: BP 146/64; PULSE 72; RESP 20; TEMP 36.4; O2SAT 100; BMI 23.6
--- NOTE | 2023-09-12 23:08 | DI.CT.S_ITS ---
PROCEDURE: CT ABDOMEN PELVIS W CON INDICATIONS: RUQ ABD PAIN, BELCHING TECHNIQUE: After the administration of oral and IV contrast, axial sections were acquired from the lung bases to the pubic symphysis. Coronal and sagittal reformats were performed. For radiation dose reduction, the following was used: automated exposure control, adjustment of mA and/or kV according to patient size. COMPARISON: [facility], CT, CT CHEST ABD PEL W CON, 06/10/2020, 16:20. FINDINGS: Image quality: Excellent. Lung bases: Unremarkable. Heart: No significant findings. ABDOMEN: Liver: Steatosis. Gallbladder: Removed. Biliary ducts: No biliary dilation. Pancreas: No ductal dilation. Spleen: Size is within normal limits. Adrenal Glands: No adrenal nodules. Kidneys and Ureters: No hydronephrosis. No solid mass. No complex renal cystic lesion which requires follow up. Stomach and Bowel: Mildly dilated fluid-filled small bowel loops with greatest dimension measuring 3.5 cm. No definitive transition point is identified. Peritoneum: No abnormal intraperitoneal fluid. No free air. Ventral Wall: No hernia. Abdominal Nodes: Scattered borderline enlarged mediastinal lymph nodes, unchanged since 2019. Vessels: Aorta and inferior vena cava are normal in size. PELVIS: Pelvic Organs: Unremarkable. Bladder: Unremarkable. Pelvic Nodes: No enlarged lymph nodes. Miscellaneous: No inguinal hernias are seen. Bones: Unremarkable. IMPRESSION: Mildly dilated fluid-filled loops of small bowel most consistent with ileus/developing partial small obstruction. Dictated by: Martina Gray M.D. on 09/13/2023 at 0:58 Approved by: Martina Gray M.D. on 09/13/2023 at 1:02
--- NOTE | 2023-09-12 23:09 | ED_ITS ---
HPI - Abdominal Pain General Chief Complaint: Abdominal Pain Stated Complaint: ABD pain Time Seen by Provider: 09/12/23 22:54 Source: patient Mode of arrival: Ambulatory History of Present Illness HPI narrative: 77-year-old female with history of hypertension, hypothyroidism presents by private vehicle from home for approximately 4 hours of intermittent, sharp, right-sided upper abdominal pain. Pain began after eating dinner this evening. States it reminds her of when her gallbladder became infected and she had to have it removed 12 years ago. Reports associated nausea with belching. She was initially hesitant to come to the emergency department, however her pain persisted and her prompted her to be evaluated in the emergency department. Related Data Home Medications Medication Instructions Recorded Confirmed [tumeric] 500 mg DAILY ##0 08/28/16 03/01/23 ascorbic acid 125 mg-collagen, 1 cap PO DAILY 06/14/20 03/01/23 hydrolyzed 740 mg capsule (Collagen Plus Vitamin C) blue-green algae (bulk) (Spirulina 1 ea miscellaneous DAILY 06/14/20 03/01/23 powder) coenzyme Q10 100 mg capsule 300 mg PO DAILY 06/14/20 03/01/23 (CoQ-10) cholecalciferol (vitamin D3) 50 50 mcg PO DAILY 03/01/23 03/01/23 mcg (2,000 unit) capsule estradiol 0.01% (0.1 mg/gram) 0.25 appful vaginal 2XW 03/01/23 03/01/23 vaginal cream multivitamin 1 tab PO DAILY 03/01/23 03/01/23 Previous Rx's Medication Instructions Recorded letrozole 2.5 mg tablet 2.5 mg PO DAILY #90 tabs 12/14/22 atorvastatin 20 mg tablet See Rx Instructions .Route 12/19/22 .COMPLEX #90 tabs levothyroxine 25 mcg tablet 25 mcg PO DAILY #90 tabs 03/16/23 Allergies Allergy/AdvReac Type Severity Reaction Status Date / Time erythromycin base Allergy Severe RASH Verified 03/01/23 09:00 [ERYTHROMYCIN BASE] prednisone AdvReac Severe hives Verified 03/01/23 09:00 Review of Systems Review of Systems Narrative: Negative except as noted above Patient History Medical History (Updated 09/13/23 @ 01:20 by Irma Cartagena MD) Menopausal syndrome Osteopenia History of hypothyroidism Primary osteoarthritis involving multiple joints Mixed hyperlipidemia Hydronephrosis, left Osteoarthritis Arthritis Hyperlipidemia Hypothyroidism Surgical History Status post cholecystectomy Status post hysterectomy History of tonsillectomy Family History Father Heart disease Mother Cancer Sister Age: 79 Hypertension Social History marital status: details: (Pancho), 4 children (blended family), German number of children: 1 Smoking Status: Never smoker alcohol intake: current caffeine: Yes Smoking Status: Never smoker alcohol intake frequency: a few times a month Substance Use Type: does not use Exam Initial Vital Signs Initial Vital Signs: Vital Signs Temperature 97.5 F L 09/12/23 22:57 Pulse Rate 72 09/12/23 22:57 Respiratory Rate 20 09/12/23 22:57 Blood Pressure 146/64 H 09/12/23 22:57 Pulse Oximetry 100 09/12/23 22:57 Oxygen Delivery Method Room Air 09/12/23 22:57 Const: Awake, alert, no acute distress, nontoxic appearing Eyes: PERRL, EOMI, conjunctiva normal ENT: Atraumatic, dentition normal, mucous membranes moist Cardiac: regular rate, regular rhythm RESP: unlabored, clear bilaterally, no wheezing GI: Atraumatic, soft, mild distention, midepigastric and right upper quadrant tenderness to deep palpation, no rebound MSK: Atraumatic, full range of motion, pulses equal Skin: Warm, Dry, intact, no rashes Neuro: AO x3, CN II-XII grossly intact, moves all extremities Psych: affect normal, mood normal, not suicidal, not homicidal Course Orders Ordered: ED Orders 09/12/23 23:08 CT abdomen pelvis w con Stat EKG-12 Lead Stat 09/12/23 23:41 Complete Blood Count AUTO DIFF Stat Comprehensive Metabolic Panel Stat Lipase Stat 09/13/23 01:13 Chest [XR chest 1V] Stat Discontinued Medications Sodium Chloride (Normal Saline 0.9%) 1,000 mls @ 1,000 mls/hr IV BOLUS ONE Stop: 09/13/23 00:07 Last Infusion: 09/13/23 00:53 Dose: Infused Documented By: Infusion: 09/12/23 23:53 Dose: 1,000 mls/hr Documented By: Infusion: 09/12/23 23:35 Dose: 0 mls/hr Documented By: Admin: 09/12/23 23:35 Dose: 1,000 mls/hr Documented By: HIREN Lorazepam (Lorazepam 2 Mg/Ml Inj) 0.5 mg IV NOW ONE Stop: 09/13/23 01:32 Lorazepam (Lorazepam 2 Mg/Ml Inj) 1 mg IV NOW ONE Stop: 09/13/23 01:34 Last Admin: 09/13/23 01:40 Dose: 1 mg Documented By: LUZMARIA Morphine Sulfate (Morphine 4 Mg/Ml Inj) 4 mg IV NOW ONE Stop: 09/12/23 23:09 Last Admin: 09/12/23 23:28 Dose: 4 mg Documented By: HIREN Ondansetron HCl (Ondansetron 4 Mg/2 Ml Inj) 4 mg IV NOW ONE Stop: 09/12/23 23:09 Last Admin: 09/12/23 23:28 Dose: 4 mg Documented By: HIREN Vital Signs Vital signs: Vital Signs - 8 hr 09/12/23 22:57 09/12/23 23:44 09/12/23 23:50 Temperature 97.5 F L Pulse Rate 72 72 74 Respiratory Rate 20 27 H 28 H Blood Pressure 146/64 H Pulse Oximetry 100 99 98 Oxygen Delivery Method Room Air 09/12/23 23:50 09/13/23 00:00 09/13/23 00:00 Temperature Pulse Rate 75 Respiratory Rate 10 L Blood Pressure 137/65 128/57 L Pulse Oximetry 97 Oxygen Delivery Method 09/13/23 00:37 09/13/23 01:00 09/13/23 01:30 Temperature Pulse Rate 94 H 91 H 94 H Respiratory Rate 10 L 16 Blood Pressure Pulse Oximetry 99 97 99 Oxygen Delivery Method MDM - Abdominal Pain Differential Diagnosis Differential diagnosis: Likely abdominal pain, diverticulitis, pancreatitis and small bowel obstruction Lab Data 09/12/23 23:41 09/12/23 23:41 Labs: Lab Results 09/12/23 Range/Units 23:41 WBC 11.2 H (4.5-11.0) X10^3/uL RBC 4.19 (4.0-5.2) X10^6/uL Hgb 12.5 (12.0-16.0) g/dL Hct 36.4 (36-46) % MCV 86.8 (80-100) fL MCH 29.8 (26-34) PG MCHC 34.3 (30-36) % RDW 12.8 (11.6-14.8) % Plt Count 73 L (150-400) X10^3/uL Neut % (Auto) Not Reportable Lymph % (Auto) Not Reportable [place] % (Auto) Not Reportable Eos % (Auto) Not Reportable Baso % (Auto) Not Reportable Lymph # (Auto) Not Reportable [place] # (Auto) Not Reportable Baso # (Auto) Not Reportable Total Counted 100 Seg Neutrophils % 84.0 H (38-70) % Band Neutrophils % 1.0 L (3-7) % Lymphocytes % (Manual) 7.0 L (25-45) % Monocytes % (Manual) 7.0 (2-11) % Basophils % (Manual) 1.0 (0-1) % Neutrophils # (Manual) 9520 H (3747-2915) /uL Platelet Estimate Decreased on smear RBC Morphology See below Anisocytosis 1+ H Microcytosis 1+ H Ovalocytes 1+ H Sodium 139 (137-145) mmol/L Potassium 3.3 L (3.4-5.1) mmol/L Chloride 101 (98-107) mmol/L Carbon Dioxide 29 (22-32) mmol/L BUN 17 (7-17) mg/dL Creatinine 0.83 (0.52-1.04) mg/dL Estimated GFR > 60 (>60) mL/min BUN/Creatinine Ratio 20.5 (6-22) Glucose 118 H (80-110) mg/dL Calcium 9.9 (8.4-10.2) mg/dL Total Bilirubin 0.6 (0.2-1.3) mg/dL AST 29 (14-36) IU/L ALT 26 (<35) IU/L Alkaline Phosphatase 99 (38-126) U/L Total Protein 7.0 (6.3-8.2) g/dL Albumin 4.2 (3.5-5.0) g/dL Globulin 2.8 (1.7-4.1) g/dL Albumin/Globulin Ratio 1.5 (1.0-2.8) Lipase 136 (23-300) U/L [facility] Narrative Medical decision making narrative: Patient presenting for abdominal pain. Abdomen is soft, she does have reproducible tenderness in the right upper quadrant and midepigastric regions of her abdomen. Vital signs are stable. We will order labs, CT imaging, pain and nausea medications. Laboratory work shows mild hypokalemia 3.3, WBC count 11.2. Patient states pain is improved when she does not move, however if she moves around her pain and nausea return. CT of the abdomen and pelvis is concerning for dilated loops of small bowel concerning for ileus versus developing small-bowel obstruction. Patient does have history of intra-abdominal surgery and could have adhesions in her abdomen. On my review of the CT scan the patient's stomach does appear to be distended with air-fluid levels. Patient and has been informed of all lab and imaging findings, patient is in agreement with placement of NG tube. Plan to admit patient for observation. Discharge Plan Departure Patient Disposition: Admitted as Observation Clinical Impression: Nausea Bowel obstruction Qualifiers: Intestinal obstruction type: unspecified Intestinal obstruction extent: partial Qualified Code(s): K56.600 - Partial intestinal obstruction, unspecified as to cause Abdominal pain Qualifiers: Abdominal location: upper abdomen, unspecified Qualified Code(s): R10.10 - Upper abdominal pain, unspecified
[2023-09-12] MEDS: MORPHINE 4 MG/ML INJ IV (23:28)
[2023-09-12] MEDS: ONDANSETRON 4 MG/2 ML INJ IV (23:28)
[2023-09-12] MEDS: SODIUM CHLORIDE 0.9% 1,000 ML 1000 ML IV (23:35)
[2023-09-12 23:44] VITALS: PULSE 72; RESP 27; O2SAT 99
[2023-09-12 23:50] VITALS: BP 137/65; PULSE 74; RESP 28; O2SAT 98
[2023-09-13] VITALS (12 sets, daily range): BP systolic 107–141; BP diastolic 48–74; PULSE 75–96; RESP 8–20; TEMP 36.1–37.2; O2SAT 90–100; BMI 23.6
[2023-09-13 00:10] LABS: Hematocrit 36.4 % (36-46); Hemoglobin 12.5 g/dL (12.0-16.0); Mean Corpuscular HGB Conc 34.3 % (30-36); Mean Corpuscular Hemoglobin 29.8 PG (26-34); Mean Corpuscular Volume 86.8 fL (80-100); Platelet Count 73 X10^3/uL (150-400); Red Blood Cell Count 4.19 X10^6/uL (4.0-5.2); Red Cell Distribution Width 12.8 % (11.6-14.8); White Blood Cell Count 11.2 X10^3/uL (4.5-11.0)
[2023-09-13 00:16] LABS: Alanine Aminotransferase 26 IU/L (<35); Albumin 4.2 g/dL (3.5-5.0); Albumin Globulin Ratio 1.5 (1.0-2.8); Alkaline Phosphatase 99 U/L (38-126); Aspartate Aminotransferase 29 IU/L (14-36); BUN Creatinine Ratio 20.5 (6-22); Bilirubin Total 0.6 mg/dL (0.2-1.3); Blood Urea Nitrogen 17 mg/dL (7-17); Calcium 9.9 mg/dL (8.4-10.2); Carbon Dioxide 29 mmol/L (22-32); Chloride 101 mmol/L (98-107); Estimated Glomerular Filt Rate > 60 mL/min (>60); Globulin 2.8 g/dL (1.7-4.1); Glucose 118 mg/dL (80-110); HEMOLYSIS 18 (0-50); Lipase 136 U/L (23-300); Potassium 3.3 mmol/L (3.4-5.1); Sodium 139 mmol/L (137-145)
[2023-09-13 00:32] LABS: Add Manual Diff / Slide Review YES
[2023-09-13 00:35] LABS: Anisocytosis 1+; Neutrophils Absolute Manual 9520 /uL (3000-5900); Platelet Estimate Decreased on smear; Total Cells Counted 100
[2023-09-13 00:36] LABS: Microcytosis 1+; Ovalocytes 1+
--- NOTE | 2023-09-13 01:13 | DI.RAD.S_ITS ---
PROCEDURE: XR CHEST 1V INDICATIONS: NG tube placement TECHNIQUE: One view of the chest was acquired. COMPARISON: [facility], CR, XR CHEST 2V, 11/16/2021, 13:53. FINDINGS: Surgical changes and devices: Cholecystectomy clips and clips overlying the right hemithorax. Nasogastric tube is present with distal tip projecting below the left hemidiaphragm. Lungs and pleura: Lungs are clear. No pleural effusions or pneumothorax. Mediastinum: Mediastinal contours appear normal. Heart size is mildly prominent. Bones and chest wall: No suspicious bony lesions. Overlying soft tissues appear unremarkable. IMPRESSION: Nasogastric tube as above. Dictated by: Martina Gray M.D. on 09/13/2023 at 1:58 Approved by: Martina Gray M.D. on 09/13/2023 at 1:59
[2023-09-13] MEDS: LORazepam 2 MG/ML INJ 1 MG IV (01:40)
--- NOTE | 2023-09-13 03:43 | PM.HP.1 ---
History of Present Illness History of Present Illness Date Patient Seen: 09/13/23 Chief complaint: ABD pain Narrative: 77 y/o developed RUQ pain and nausea after the dinner that worsened over the following 4-5 hours and she presented to ED with distended abdomen, evidence of SBO on CT. She was in pain and was anxious on arrival which required morphine and lorazepam for NGT placement. After initial suctioning she felt much better but became drowsy and sleepy. She never had similar episode since her laparoscopic cholecystectomy 12 years ago. [facility] Medical History (Updated 09/13/23 @ 04:12 by Jd Lea MD) Hypothyroidism Ductal carcinoma of breast Menopausal syndrome Osteopenia History of hypothyroidism Primary osteoarthritis involving multiple joints Mixed hyperlipidemia Hydronephrosis, left Osteoarthritis Arthritis Hyperlipidemia Hypothyroidism Surgical History Status post cholecystectomy Status post hysterectomy History of tonsillectomy Family History Father Heart disease Mother Cancer Sister Age: 80 Hypertension Social History marital status: details: (Pancho), 4 children (blended family), [place] number of children: 1 household members: spouse Smoking Status: Never smoker alcohol intake: current caffeine: Yes Meds Home Medications and Allergies Home Medications Medication Instructions Recorded Confirmed Type [tumeric] 500 mg DAILY ##0 08/28/16 03/01/23 History ascorbic acid 125 mg-collagen, 1 cap PO DAILY 06/14/20 03/01/23 History hydrolyzed 740 mg capsule (Collagen Plus Vitamin C) blue-green algae (bulk) (Spirulina 1 ea miscellaneous DAILY 06/14/20 03/01/23 History powder) coenzyme Q10 100 mg capsule 300 mg PO DAILY 06/14/20 03/01/23 History (CoQ-10) letrozole 2.5 mg tablet 2.5 mg PO DAILY #90 tabs 12/14/22 03/01/23 Rx atorvastatin 20 mg tablet See Rx Instructions .Route 12/19/22 03/01/23 Rx .COMPLEX #90 tabs cholecalciferol (vitamin D3) 50 50 mcg PO DAILY 03/01/23 03/01/23 History mcg (2,000 unit) capsule estradiol 0.01% (0.1 mg/gram) 0.25 appful vaginal 2XW 03/01/23 03/01/23 History vaginal cream multivitamin 1 tab PO DAILY 03/01/23 03/01/23 History levothyroxine 25 mcg tablet 25 mcg PO DAILY #90 tabs 03/16/23 Rx Allergies Allergy/AdvReac Type Severity Reaction Status Date / Time erythromycin base Allergy Severe RASH Verified 03/01/23 09:00 [ERYTHROMYCIN BASE] prednisone AdvReac Severe hives Verified 03/01/23 09:00 Review of Systems Review of Systems Narrative: Patient is sleepy, drowsy and mildly altered from Ativan provided history. Constitutional Comments: she had no recent fever, chills or sweats Cardiovascular Comments: no recent chest pain Respiratory Comments: no recent cough or shortness of breath Gastrointestinal Comments: w/o issues up until today - see HPI Genitourinary Comments: w/o dysuria Exam Vital Signs (past 8 hours): - 09/12/23 22:57 09/12/23 23:44 09/12/23 23:50 Temperature 97.5 F L Pulse Rate 72 72 74 Respiratory Rate 20 27 H 28 H Blood Pressure 146/64 H Pulse Oximetry 100 99 98 Oxygen Delivery Method Room Air 09/12/23 23:50 09/13/23 00:00 09/13/23 00:00 Temperature Pulse Rate 75 Respiratory Rate 10 L Blood Pressure 137/65 128/57 L Pulse Oximetry 97 Oxygen Delivery Method 09/13/23 00:37 09/13/23 01:00 09/13/23 01:30 Temperature Pulse Rate 94 H 91 H 94 H Respiratory Rate 10 L 16 Blood Pressure Pulse Oximetry 99 97 99 Oxygen Delivery Method 09/13/23 02:00 09/13/23 02:30 Temperature Pulse Rate 96 H 90 Respiratory Rate 8 L 15 Blood Pressure 128/57 L Pulse Oximetry 90 L 98 Oxygen Delivery Method Oxygen Delivery Method Room Air Const Other: Laying in bed in no distress, NGT and O2 NC in place, at bedside HENMT Other: O2 NC, NGT Eyes Other: reactive pupils, EOMI Resp Other: poor respiratory effort, breathing shallow Cardio Other: RRR GI Other: distended, mild diffuse tenderness, w/o peritoneal signs Skin Other: not jaundiced Neuro Other: w/o focal muscle weakness or sensory deficits Extrem Other: w/o deformities or swelling Objective Labs 09/12/23 23:41 09/12/23 23:41 Labs: Laboratory Results - last 24 hr 09/12/23 23:41 WBC 11.2 H RBC 4.19 Hgb 12.5 Hct 36.4 MCV 86.8 MCH 29.8 MCHC 34.3 RDW 12.8 Plt Count 73 L Neut % (Auto) Not Reportable Lymph % (Auto) Not Reportable [place] % (Auto) Not Reportable Eos % (Auto) Not Reportable Baso % (Auto) Not Reportable Lymph # (Auto) Not Reportable [place] # (Auto) Not Reportable Baso # (Auto) Not Reportable Total Counted 100 Seg Neutrophils % 84.0 H Band Neutrophils % 1.0 L Lymphocytes % (Manual) 7.0 L Monocytes % (Manual) 7.0 Basophils % (Manual) 1.0 Neutrophils # (Manual) 9520 H Platelet Estimate Decreased on smear RBC Morphology See below Anisocytosis 1+ H Microcytosis 1+ H Ovalocytes 1+ H Sodium 139 Potassium 3.3 L Chloride 101 Carbon Dioxide 29 BUN 17 Creatinine 0.83 Estimated GFR > 60 BUN/Creatinine Ratio 20.5 Glucose 118 H Calcium 9.9 Total Bilirubin 0.6 AST 29 ALT 26 Alkaline Phosphatase 99 Total Protein 7.0 Albumin 4.2 Globulin 2.8 Albumin/Globulin Ratio 1.5 Lipase 136 Assessment & Plan Assessment and plan (1) SBO (small bowel obstruction): Status: Acute Plan: NPO, NGT for low, intermittent sucction, PPI x 1 for gastric protection - general surgery consultation today - IVFs, antiemetic (2) Hypothyroidism: Status: Acute Plan: on levothyroxine at home (3) Ductal carcinoma of breast: Status: Acute Plan: s/p Rt lumpectomy, radiation Tx in 2019. On Letrozol - estrogen receptor positive. Follows with oncology (4) Mixed hyperlipidemia: Status: Acute Plan: at home on statin (5) Hypokalemia: Status: Acute Plan: mild, KCl in IVFs, repeat BMP pending (6) Thrombocytopenia: Status: Acute Plan: No Hx of it. DVT prophylaxis with SCDs Repeating CBC
[2023-09-13] MEDS: PANTOPRAZOLE 40 MG VIAL 20 MG IV (04:03)
[2023-09-13] MEDS: DEXTROSE 5%-0.45NS W/KCL 20MEQ 1,000 ML 100 MEQ IV (04:05)
--- NOTE | 2023-09-13 05:44 | PC.ADMIT ---
Addendum entered by Zulema Rivas R.N. 09/13/23 05:49: NG tube placed in ED, running at low intermittent suction. Original Note: [email or web address] Admission Note: Patient admitted to AC unit from ED at 02:40. Alert and oriented x 4, drowsy. Denies pain, nausea, but reports tenderness to RUQ. D5 1/2 NS with KCl 20mEq running @ 100/hr per order. Oriented to room and call light, bed alarm on and call light within reach. Spouse present at bedside. The patient,Naz Grace,77 y/o, was given written information regarding hospital policies, unit procedures and contact persons. Patient's smoking status: Never smoker. Vital Signs - 8 hr 09/12/23 22:57 09/12/23 23:44 09/12/23 23:50 Temperature 97.5 F L Pulse Rate 72 72 74 Respiratory Rate 20 27 H 28 H Blood Pressure 146/64 H Pulse Oximetry 100 99 98 Oxygen Delivery Method Room Air 09/12/23 23:50 09/13/23 00:00 09/13/23 00:00 Temperature Pulse Rate 75 Respiratory Rate 10 L Blood Pressure 137/65 128/57 L Pulse Oximetry 97 Oxygen Delivery Method 09/13/23 00:37 09/13/23 01:00 09/13/23 01:30 Temperature Pulse Rate 94 H 91 H 94 H Respiratory Rate 10 L 16 Blood Pressure Pulse Oximetry 99 97 99 Oxygen Delivery Method 09/13/23 02:00 09/13/23 02:30 09/13/23 02:33 Temperature Pulse Rate 96 H 90 Respiratory Rate 8 L 15 Blood Pressure 128/57 L Pulse Oximetry 90 L 98 Oxygen Delivery Method Nasal Cannula
[2023-09-13 08:14] LABS: Add Manual Diff / Slide Review NO; Basophils Absolute Auto 0 /uL (0-100); Basophils Percent Auto 0.4 % (0-2); Eosinophils Absolute Auto 100 /uL (0-450); Eosinophils Percent Auto 0.6 % (2-4); Hematocrit 34.1 % (36-46); Hemoglobin 11.7 g/dL (12.0-16.0); Lymphocytes Absolute Auto 1800 /uL (1100-4500); Lymphocytes Percent Auto 20.7 % (25-40); Mean Corpuscular HGB Conc 34.3 % (30-36); Mean Corpuscular Hemoglobin 30.3 PG (26-34); Mean Corpuscular Volume 88.2 fL (80-100); Monocytes Absolute Auto 500 /uL (0-900); Monocytes Percent Auto 6.2 % (3-14); Neutrophils Absolute Auto 6400 /uL (1500-7000); Neutrophils Percent Auto 72.1 % (50-75); Platelet Count 201 X10^3/uL (150-400); Red Blood Cell Count 3.87 X10^6/uL (4.0-5.2); Red Cell Distribution Width 12.9 % (11.6-14.8); White Blood Cell Count 8.8 X10^3/uL (4.5-11.0)
[2023-09-13 08:25] LABS: BUN Creatinine Ratio 18.4 (6-22); Blood Urea Nitrogen 14 mg/dL (7-17); Calcium 9.1 mg/dL (8.4-10.2); Carbon Dioxide 29 mmol/L (22-32); Chloride 104 mmol/L (98-107); Estimated Glomerular Filt Rate > 60 mL/min (>60); Glucose 150 mg/dL (80-110); HEMOLYSIS < 15 (0-50); Sodium 137 mmol/L (137-145)
[2023-09-13] MEDS: ACETAMINOPHEN 325 MG TABLET 650 MG PO (13:10)
--- NOTE | 2023-09-13 13:28 | PM.PN.1 ---
Subjective Subjective Date Patient Seen: 09/13/23 Time Patient Seen: 08:00 Interval history: She only had 200cc out from NG tube all night. She continues to pass gas. She has no abdominal pain. Her last bowel movement was yesterday. Exam Vital Signs (past 8 hours): - 09/13/23 08:35 09/13/23 12:20 Temperature 96.9 F L 97.9 F Pulse Rate 78 76 Respiratory Rate 20 19 Blood Pressure 109/51 L 116/48 L Pulse Oximetry 96 97 Oxygen Flow Rate 0 0 Oxygen Delivery Method Nasal Cannula Oxygen Flow Rate 0 Narrative Exam Narrative: GEN: no acute distress HEENT: NG tube in place CV: regular rate and rhythm PULM: clear bilaterally ABD: soft, nontender, normal bowel sounds Objective Labs 09/13/23 07:55 09/13/23 07:55 Labs: Laboratory Results - last 24 hr 09/12/23 09/13/23 23:41 07:55 WBC 11.2 H 8.8 RBC 4.19 3.87 L Hgb 12.5 11.7 L Hct 36.4 34.1 L MCV 86.8 88.2 MCH 29.8 30.3 MCHC 34.3 34.3 RDW 12.8 12.9 Plt Count 73 L 201 Neut % (Auto) Not Reportable 72.1 Lymph % (Auto) Not Reportable 20.7 L [place] % (Auto) Not Reportable 6.2 Eos % (Auto) Not Reportable 0.6 L Baso % (Auto) Not Reportable 0.4 Neut # (Auto) 6400 Lymph # (Auto) Not Reportable 1800 [place] # (Auto) Not Reportable 500 Eos # (Auto) 100 Baso # (Auto) Not Reportable 0 Total Counted 100 Seg Neutrophils % 84.0 H Band Neutrophils % 1.0 L Lymphocytes % (Manual) 7.0 L Monocytes % (Manual) 7.0 Basophils % (Manual) 1.0 Neutrophils # (Manual) 9520 H Platelet Estimate Decreased on smear RBC Morphology See below Anisocytosis 1+ H Microcytosis 1+ H Ovalocytes 1+ H Sodium 139 137 Potassium 3.3 L 4.0 Chloride 101 104 Carbon Dioxide 29 29 BUN 17 14 Creatinine 0.83 0.76 Estimated GFR > 60 > 60 BUN/Creatinine Ratio 20.5 18.4 Glucose 118 H 150 H Calcium 9.9 9.1 Total Bilirubin 0.6 AST 29 ALT 26 Alkaline Phosphatase 99 Total Protein 7.0 Albumin 4.2 Globulin 2.8 Albumin/Globulin Ratio 1.5 Lipase 136 PFSH Medical History (Updated 09/13/23 @ 04:12 by Jd Lea MD) Hypothyroidism Ductal carcinoma of breast Menopausal syndrome Osteopenia History of hypothyroidism Primary osteoarthritis involving multiple joints Mixed hyperlipidemia Hydronephrosis, left Osteoarthritis Arthritis Hyperlipidemia Hypothyroidism Surgical History Status post cholecystectomy Status post hysterectomy History of tonsillectomy Family History Father Heart disease Mother Cancer Sister Age: 80 Hypertension Social History marital status: details: (Pancho), 4 children (blended family), [place] number of children: 1 household members: spouse Smoking Status: Never smoker alcohol intake: current caffeine: Yes Assessment & Plan Assessment & Plan narrative: 1. Abdominal pain -patient continued to pass gas, had bowel movement yesterday, paez is soft, CT with no transition point so I doubt she had SBO -after NG tube placed she only had 200cc out all night -no symptoms currently -will remove NG tube and trial clear liquids -suspect possible gastroenteritis as cause -monitor symptoms and consult surgery if she worsens 2. Hypothyroidism -continue synthroid 3. Breas tcancer on letrozol 4. Hypokalemia -repleted potassium
--- NOTE | 2023-09-13 15:19 | CM.DANOTE ---
Reviewed EMR and team rounds for pt's medical status and initial anticipated d/c and support needs. Pt found to be sleeping at time of this assessment, spouse not present either, will plan to meet w/them in person tomorrow (Sunday09/04/23). Payor: Medicare PCP: Dr. Quinn Pt is a 77 year-old F who presented to the ED on 09/12/23 after experiencing wodrsening right-sided abdominal pain, nausea, and belching. This was reportedly brought on following her meal. CT of abd. done in ED, which was suspicious for a small bowel obstruction. NG was placed and pt was admitted for further evaluation and treatment. Per EMR, she was symptomatic this am, Dr. Salas suspects that this is not a SBO. NG tube is now removed and pt is advancing diet to clear liquids. DCP will continue to follow and assist with evolving d/c needs. Discharge Planning/Care Management Advanced directive, confirm from FAMILY Start: 09/13/23 03:10 Freq: Q24H Status: Active Protocol: Document 09/13/23 03:10 (Rec: 09/13/23 03:12 [id number]) Advance Directive, confirm on record Time 03:12 Person contacted spouse Copy received No CM Discharge Assessment Start: 09/13/23 15:16 Freq: Status: Active Protocol: Document 09/13/23 15:16 DPL (Rec: 09/13/23 15:19 DPL [id number]) Discharge Planning Assessment Assigned [employer] VENKATESH Fish DPOA/Assigned Designee Name Pancho Grace, spouse Advance Directives? Yes: DPOA for HC Advance Directives on File No History Provided By Medical Record Expected Length of Stay 3 Has Patient been admitted in last 30 No days? Prior Living Arrangements House Household Members spouse Type of transporation used prior to Relies on Others admit Independent with ADL's Yes Is patient alert and oriented? Yes Caregiver for Another No Comment Pending PT/OT eval and recommendations, as well as whether or not she will end up needing surgery for possible SBO. Barriers to Discharge No Discharge Plan Home Referrals Initiated None needed Additional Comment None anticipated at this time. Comment No, pt was sleeping at time of this assessment visit. Review Status In Process Please Provide Date Initial DC 09/13/23 Assessment Was Performed
--- NOTE | 2023-09-13 17:05 | PC.NURSE ---
Pt had relatively uneventful day. Resting at intervals. NG D/C'd 1030, no nausea Tolerating clear liquids. Med x 1 w/ tylenol for abd spasms HL intact/patent. Call light w/in reach, pt calls appropriately for needs. Continue w/plan of care.
[2023-09-14 00:40] VITALS: BP 121/53; PULSE 79; TEMP 37; O2SAT 97
[2023-09-14 08:08] VITALS: BP 126/58; PULSE 77; RESP 19; TEMP 36.6; O2SAT 99
--- NOTE | 2023-09-14 11:48 | PM.DS.1 ---
History of Present Illness History of Present Illness Date Patient Seen: 09/13/23 Chief complaint: ABD pain Narrative: 77 y/o developed RUQ pain and nausea after the dinner that worsened over the following 4-5 hours and she presented to ED with distended abdomen, evidence of SBO on CT. She was in pain and was anxious on arrival which required morphine and lorazepam for NGT placement. After initial suctioning she felt much better but became drowsy and sleepy. She never had similar episode since her laparoscopic cholecystectomy 12 years ago. Discharge Providers Provider Date of admission: 09/13/23 02:24 Discharge Date: 09/14/23 Primary care physician: Keith Qunin MD Discharge provider: Enrique Dominguez DO Summary Hospital Course Discharge Diagnosis: 1. Abdominal pain -patient continued to pass gas, had bowel movement yesterday, paez is soft, CT with no transition point so I doubt she had SBO -after NG tube placed she only had 200cc out all night -no symptoms currently -will remove NG tube and trial clear liquids -suspect possible gastroenteritis as cause -monitor symptoms and consult surgery if she worsens -patient tolerated po fine and able to dc home 2. Hypothyroidism -continue synthroid 3. Breast cancer on letrozol 4. Hypokalemia -repleted potassium Hospital Course: Admitted for SBO which may have actually just been gastroenteritis. Resolved quickly and able to eat and had BM's. Discharged home feeling well. Exam Vital Signs (past 8 hours): - 09/14/23 08:08 Temperature 97.9 F Pulse Rate 77 Respiratory Rate 19 Blood Pressure 126/58 L Pulse Oximetry 99 Oxygen Flow Rate 0 Oxygen Delivery Method Nasal Cannula Oxygen Flow Rate 0 Narrative Exam Narrative: GEN: no acute distress CV: regular rate and rhythm PULM: clear bilaterally ABD: soft, nontender, normal bowel sounds Objective Labs 09/13/23 07:55 09/13/23 07:55 [facility] Medical History (Updated 09/13/23 @ 04:12 by Jd Lea MD) Hypothyroidism Ductal carcinoma of breast Menopausal syndrome Osteopenia History of hypothyroidism Primary osteoarthritis involving multiple joints Mixed hyperlipidemia Hydronephrosis, left Osteoarthritis Arthritis Hyperlipidemia Hypothyroidism Surgical History Status post cholecystectomy Status post hysterectomy History of tonsillectomy Family History Father Heart disease Mother Cancer Sister Age: 80 Hypertension Social History marital status: details: (Pancoh), 4 children (blended family), [place] number of children: 1 household members: spouse Smoking Status: Never smoker alcohol intake: current caffeine: Yes Discharge Plan Discharge Plan Patient Disposition: Home Provider Discharge Comment: You were admitted for a possible bowel obstruction, however you improved quickly without any intervention. General surgery thinks its reasonable that you had a stomach bug or something else causing your symptoms and not an obstruction. Discharge orders & Medications Prescriptions: Continued [tumeric] 500 mg PO DAILY Qty: 0 atorvastatin 20 mg tablet See Rx Instructions .ROUTE .COMPLEX Qty: 90 3RF Dose Instruction: take 1 tablet by mouth once daily Rx Instructions: take 1 tablet by mouth once daily levothyroxine 25 mcg tablet 25 mcg PO DAILY Qty: 90 3RF cholecalciferol (vitamin D3) 50 mcg (2,000 unit) capsule 50 mcg PO DAILY multivitamin Tablet 1 tab PO DAILY estradiol 0.01 % (0.1 mg/gram) cream 0.25 appful vaginal 2XW Rx Instructions: Apply a small amount to the left vulva every day for 14 days and then twice a week coenzyme Q10 [CoQ-10] 100 mg Capsule 300 mg PO DAILY Collagen Plus Vitamin C 125-740 mg Capsule 1 cap PO DAILY Spirulina Powder 1 ea MISCELLANEOUS DAILY letrozole 2.5 mg Tablet 2.5 mg PO DAILY Qty: 90 3RF Follow up/Referrals: Keith Quinn MD [Primary Care Provider] - 2 Weeks Visit Report/Discharge Packet Instructions: DI for Small Bowel Obstruction, High-Potassium Diet Stand Alone Forms: Patient Portal/API, Stroke Signs & Symptoms Discharge Data Primary Care Provider: Keith Quinn V
[2023-09-14 12:10] VITALS: BP 138/65; PULSE 80; RESP 20; TEMP 36.9; O2SAT 96
--- NOTE | 2023-09-14 15:40 | PC.NURSE ---
Discharge: Pt d/c to home via auto w/spouse. She tolerated a low fiber diet w/out problems. No nausea. No abd pain today. Pt reports she was quite painful when she got here. Vds w/out problems. No use of pain medication. Pt d/c and voiced no concerns at time of discharge.
== END 2023-09-14 12:50 | disposition home or self-care (01) | DRG 392 ==
LOC: ED 09-13 01:20 → AC 09-13 11:03
PROVIDERS: Admitting Provider Internal Medicine; Emergency Provider Emergency Medicine; PCP Internal Medicine; Referring Provider Emergency Medicine; Visit Provider Internal Medicine
DX: K52.9 Noninfective gastroenteritis and colitis, unspecified (principal); E03.9 Hypothyroidism, unspecified; E78.2 Mixed hyperlipidemia; E87.6 Hypokalemia; C50.411 Malignant neoplasm of upper-outer quadrant of right female breast; F41.9 Anxiety disorder, unspecified; Z17.0 Estrogen receptor positive status [ER+]
CPT/HCPCS: 36415; 71045; 74177; 80048; 80053; 83690; 85007; 85025; 93005; 93010; 96374; 96375; 99284; C9113; J2060; J2270; J2405; Q9967

== ENCOUNTER → 2023-09-28 09:49 | Outpatient (CLI) | payer MEDICARE, OTHER, SELFPAY ==
[2023-09-13 02:33] VITALS: BMI 23.6
[2023-09-28 11:49] LABS: Free T3, Triiodothyronine Free 4.48 pg/mL (2.77-5.27); Free T4, Direct Thyroxine 1.03 ng/dL (0.78-2.19)
[2023-09-28 12:03] LABS: Thyroid Stimulating Hormone 5.96 uIU/mL (0.47-4.68)
== END ==
PROVIDERS: PCP Internal Medicine; Referring Provider Internal Medicine; Visit Provider Internal Medicine
DX: E03.9 Hypothyroidism, unspecified (principal)
CPT/HCPCS: 36415; 84439; 84443; 84481

== ENCOUNTER → 2023-12-27 14:37 | Outpatient (CLI) | payer MEDICARE, OTHER, SELFPAY ==
[2023-09-13 02:33] VITALS: BMI 23.6
[2023-12-27 16:38] LABS: Free T3, Triiodothyronine Free 3.97 pg/mL (2.77-5.27); Free T4, Direct Thyroxine 0.96 ng/dL (0.78-2.19)
[2023-12-27 16:52] LABS: Thyroid Stimulating Hormone 5.45 uIU/mL (0.47-4.68)
== END ==
PROVIDERS: PCP Internal Medicine; Referring Provider Internal Medicine; Visit Provider Internal Medicine
DX: E03.9 Hypothyroidism, unspecified (principal)
CPT/HCPCS: 36415; 84439; 84443; 84481

== ENCOUNTER → 2024-03-03 14:09 | Outpatient (CLI) | payer MEDICARE, OTHER, SELFPAY ==
[2023-09-13 02:33] VITALS: BMI 23.6
[2024-03-03 14:55] LABS: Aspartate Aminotransferase 35 IU/L (14-36); BUN Creatinine Ratio 19.1 (6-22); Blood Urea Nitrogen 18 mg/dL (7-17); Calcium 9.5 mg/dL (8.4-10.2); Carbon Dioxide 26 mmol/L (22-32); Chloride 109 mmol/L (98-107); Cholesterol 183 mg/dL (140-199); Estimated Glomerular Filt Rate > 60 mL/min (>60); Glucose 109 mg/dL (80-110); HDL Cholesterol 101 mg/dL (40-60); HEMOLYSIS < 15 (0-50); LDL Cholesterol Calculated 64 mg/dL (<100); Sodium 140 mmol/L (137-145); Triglycerides 91 mg/dL (35-150)
[2024-03-03 15:26] LABS: TSH w/ Reflex to FT4 6.72 uIU/mL (0.47-4.68)
[2024-03-03 15:43] LABS: Vitamin B12 599 pg/mL (239-931)
[2024-03-03 20:46] LABS: Free T4, Direct Thyroxine 1.04 ng/dL (0.78-2.19)
== END ==
PROVIDERS: PCP Internal Medicine; Referring Provider Internal Medicine; Visit Provider Internal Medicine
DX: R19.7 Diarrhea, unspecified (principal); E78.2 Mixed hyperlipidemia; E53.8 Deficiency of other specified B group vitamins
CPT/HCPCS: 36415; 80048; 80061; 82607; 84439; 84443; 84450

== ENCOUNTER → 2025-06-29 10:49 | Outpatient (CLI) | payer MEDICARE, OTHER, SELFPAY ==
[2023-09-13 02:33] VITALS: BMI 23.6
[2025-06-29 11:11] LABS: Hematocrit 40.3 % (36-46); Hemoglobin 13.7 g/dL (12.0-16.0); Mean Corpuscular HGB Conc 33.9 % (30-36); Mean Corpuscular Hemoglobin 30.7 PG (26-34); Mean Corpuscular Volume 90.6 fL (80-100); Platelet Count 223 X10^3/uL (150-400)
[2025-06-29 11:41] LABS: Blood Urea Nitrogen 16 mg/dL (7-17); Calcium 9.5 mg/dL (8.4-10.2); Carbon Dioxide 25 mmol/L (22-32); Chloride 105 mmol/L (98-107); Cholesterol 193 mg/dL (140-199); Estimated Glomerular Filt Rate > 60 mL/min (>60); Glucose 92 mg/dL (70-99); HDL Cholesterol 105 mg/dL (40-60); Sodium 140 mmol/L (137-145); Triglycerides 78 mg/dL (35-150)
[2025-06-29 11:42] LABS: HEMOLYSIS 131 (0-50); Potassium 5.0 mmol/L (3.4-5.1)
[2025-06-29 12:15] LABS: TSH w/ Reflex to FT4 8.12 uIU/mL (0.47-4.68)
[2025-06-29 12:41] LABS: Free T4, Direct Thyroxine 1.00 ng/dL (0.78-2.19)
== END ==
PROVIDERS: PCP Internal Medicine; Referring Provider Internal Medicine; Visit Provider Internal Medicine
DX: E78.2 Mixed hyperlipidemia (principal); N13.30 Unspecified hydronephrosis; M81.0 Age-related osteoporosis without current pathological fracture; C50.911 Malignant neoplasm of unspecified site of right female breast; Z17.0 Estrogen receptor positive status [ER+]
CPT/HCPCS: 36415; 80048; 80061; 84439; 84443; 84450; 85027

== ENCOUNTER → 2025-10-07 13:12 | Outpatient (CLI) | payer MEDICARE, OTHER, SELFPAY ==
[2023-09-13 02:33] VITALS: BMI 23.6
== END ==
PROVIDERS: PCP Internal Medicine; Referring Provider Internal Medicine Gastroenterology; Visit Provider Internal Medicine Gastroenterology
DX: R19.7 Diarrhea, unspecified (principal)
CPT/HCPCS: 82656; 83993